=== PATIENT | female | born 1970 | race Caucasian/White ===

== ENCOUNTER 2022-07-13 17:11 | Emergency (ER) | payer OTHER, SELFPAY ==
[2022-07-13 17:16] VITALS: BP 150/97; PULSE 92; RESP 18; TEMP 36.8; O2SAT 97; BMI 38.7
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
[2022-07-13 17:33] LABS: Microscopic, Urine URINE MICROSCOPIC (MICROSCOPIC)
[2022-07-13 17:35] LABS: Appearance,Urine CLEAR (Clear); Bilirubin,Urine Negative (Negative); Blood, Urine Negative (Negative); Color,Urine YELLOW (Yellow); Glucose,Urine (UA) Negative (Negative); Ketones,Urine Negative (Negative); Leukocyte Esterase,Urine Negative (Negative); Nitrate,Urine Negative (Negative); Protein,Urine 1+ (Negative); Specific Gravity, Urine 1.015 (1.005-1.030); Urobilinogen,Urine 0.2 EU/dl (0.2)
[2022-07-13 17:37] LABS: Urine Pregnancy, HCG Qual. Negative (Negative)
[2022-07-13 18:36] VITALS: BP 132/82; PULSE 70; RESP 18; O2SAT 96
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
[2022-07-13 19:14] VITALS: BP 132/82; PULSE 70; RESP 18; TEMP 36.8; O2SAT 96
== END 2022-07-13 19:16 | disposition home or self-care (01) ==
PROVIDERS: Emergency Provider Emergency Medicine
DX: S39.012A Strain of muscle, fascia and tendon of lower back, initial encounter (principal); V49.40XA Driver injured in collision with unspecified motor vehicles in traffic accident, initial encounter
CPT/HCPCS: 72128; 72131; 81001; 81025; 99285

== ENCOUNTER 2025-01-03 10:05 | Outpatient (CLI) | payer MEDICAID, SELFPAY ==
--- OUTSIDE RECORDS SUMMARY | 2024-04-20 10:56 | XMS_ITS | Continuity of Care Document ---
Author Organization [facility] Address [address] [facility] [address] [place] [address] Phone Care Team Providers Care Computer Numerical Control Grinder Name Role Phone Sana Esquivel MD Unavailable Unavailable Allergies, Adverse Reactions, Alerts Substance Reaction Status Criticality HYDROCODONE BITARTRATE Unknown(severe) Active No Information acetaminophen Unknown(severe) Active No Informat ion Medications Medication Instructions Dosage Effective Dates (start - stop) Status Comments METFORMIN HYDROCHLORIDE 1000MG TABLET TAKE ONE (1) TABLET TWICE DAILY WITH MORNING & EVENING MEALS - Active ATORVASTATIN CALCIUM 20MG TABLET TAKE 1 TABLET ONCE DAILY - Active OMEPRAZOLE 20MG CAPSULE DR TAKE 1 CAPSULE ONCE DAILY - Active LEVOCETIRIZINE DIHYDROCHLORIDE 5MG TABLET TAKE 1 TABLET ONCE DAILY IN THE EVENING - Active DOCUSATE SODIUM 100MG CAPSULE TAKE 1 CAPSULE TWICE DAILY - Active BACLOFEN 10MG TABLET TAKE ONE (1) TABLET EVERY 8 HOURS - Active jxeoerpt-fbiztdikj-j ydrocort 3.5 mg-10,000 unit/mL-1 % ear drops,susp instill 4 drop by otic route 3 times every day into affected ear(s) 4.00 drop - Active ClearLax 17 gram/dose oral powder DISSOLVE ONE CAPFULL (17 GRAMS) INTO LIQUID AND DRINK TWICE A DAY - Active Flonase Allergy Relief 50 mcg/actuation nasal spray,suspension inhale 2 spray by intranasal route every day in each nostril 100 MCG - Active MELOXICAM 15MG TABLET TAKE 1 TABLET ONCE DAILY - Active Ciprodex 0.3 %-0.1 % ear drops,suspension INSTILL FOUR (4) DROP BY OTIC ROUTE TWO (2) TIMES EVERY DAY FOR 7 DAYS INTO AFFECTED EAR(S) - Active desonide 0.05 % topical ointment apply by topical route 2 times every day sparingly and rub gently into the affected area(s) 0.00 - Active gabapentin 800 mg tablet TAKE 1 TABLET THREE TIMES DAILY - Active prednisone 20 mg tablet take 1 tablet by oral route every 5 days 20 MG - Active promethazine-DM 6.25 mg-15 mg/5 mL oral syrup take 5 milliliter by oral route every 4 - 6 hours as needed, not to exceed 30 mL in 24 hours 5.00 milliliter - Active valacyclovir 500 mg tablet take 1 tablet by oral route 2 times every day till gone - Active hydrocortisone 2.5 % topical cream apply by topical route 3 times every day a thin layer to the affected area(s) Not Available - Active METFORMIN HYDROCHLORIDE 500MG TABLET TAKE ONE (1) TABLET BY MOUTH TWICE DAILY WITH BREAKFAST AND EVENING MEAL - Active omeprazole 20 mg tablet,delayed release take 1 by oral route every day 1 - Active amoxicillin 500 mg capsule take 1 capsule by oral route every 8 hours 500 MG - Active prednisone 20 mg tablet take 2 tablet by oral route every day 40 MG - Active Pepcid 20 mg tablet take 1 tablet by oral route 2 times daily - Active mupirocin 2 % topical ointment apply by topical route 3 times every day a small amount to the affected area 0.00 - Active Metamucil Sugar-Free (aspartame) 3.4 gram/5.8 gram oral powder Take as directed on daily - Active dispense qs FERROUS SULFATE 325 MG (65 MG IRON) TABLET take 1 tablet by oral route every day - Active Alcohol Pads Monitor fingerstick blood sugars once a day. - Active may substitute per insurance. E 11.9 Blood Glucose Test strips test by Subcutaneous route every day Not Available - Active may substitute per insurance. E 11.9 lancets Fingerstick blood sugars once a day - Active may substitute per insurance. E 11.9 blood-glucose meter kit Check BS once daily. - Active Per insurance coverage E 11.9 Percocet 7.5 mg-325 mg tablet take 1 tablet by oral route every 8 hours as needed 1 tablet - Procedures Procedure Date METABOLIC PANEL Offsite Lab GLYCOHEMOGLOBIN(A1C) Offsite Lab 2022 TSH Offsite Lab LIPID PANEL Offsite Lab URINE MICROALBUMIN OFFICE VISIT/EST LEVEL IV HG A1C LEVEL < 7.0% DIL RETINA WITHOUT RETINOPATHY LDL-C <100 MG/DL DIAST BP 80-89 MM HG SYST BP >=130-139MM HG RVW MEDS BY RX/DR IN [facility] MED LIST DOCD IN [facility] Screen Tobacco; User No Counseling PHQ2 Negative COLORECTAL CA SCREEN DOC REV OFFICE VISIT/EST LEVEL III HG A1C LEVEL < 7.0% DIL RETINA WITHOUT RETINOPATHY LDL-C <100 MG/DL DIAST BP 80-89 MM HG SYST BP < 130 MM HG RVW MEDS BY RX/DR IN [facility] MED LIST DOCD IN [facility] Screen Tobacco; User No Counseling PHQ2 Negative COLORECTAL CA SCREEN DOC REV AMNT PAIN NOTED PAIN PRSNT [facility] Offsite Lab [facility] Offsite Lab NEBULIZER TREATMENT (EA) Albuterol non-comp unit 1 Mg OFFICE VISIT/EST LEVEL III HG A1C LEVEL < 7.0% LDL-C <100 MG/DL POS MICROALBUMINURIA REV DIAST BP 80-89 MM HG SYST BP >=130-139MM HG RVW MEDS BY RX/DR IN [facility] MED LIST DOCD IN [facility] Screen Tobacco; User No Counseling PHQ2 Negative COLORECTAL CA SCREEN DOC REV SARSCOV & INF VIR A&B AG IA Onsite OFFICE VISIT/EST LEVEL III HG A1C LEVEL < 7.0% LDL-C <100 MG/DL POS MICROALBUMINURIA REV DIAST BP> = 90 MM HG SYST BP> = 140 MM HG6 IT RVW MEDS BY RX/DR IN [facility] MED LIST DOCD IN [facility] Screen Tobacco; User No Counseling PHQ2 Negative OFFICE VISIT/EST LEVEL III HG A1C LEVEL < 7.0% LDL-C <100 MG/DL POS MICROALBUMINURIA REV DIAST BP 80-89 MM HG SYST BP> = 140 MM HG6 IT RVW MEDS BY RX/DR IN [facility] MED LIST DOCD IN [facility] TOBACCO NON-USER CBC W/DIFF. Offsite Lab METABOLIC PANEL Offsite Lab GLYCOHEMOGLOBIN(A1C) Offsite Lab LIPID PANEL Offsite Lab VITAMIN B-12 CHEMISTRY FOLIC ACID (FOLATE) SERUM TSH Offsite Lab Vitamin D 3 25 Hydroxy Level Offsite Lab GLYCOHEMOGLOBIN(A1C) Offsite Lab 2022 OFFICE VISIT/EST LEVEL III OFFICE VISIT/EST LEVEL III CBC W/DIFF. Offsite Lab METABOLIC PANEL Offsite Lab GROUP B STREPT/WOUND/OTHER CULTURE OFFICE VISIT/EST LEVEL III HG A1C LEVEL < 7.0% Foot Exam LDL-C <100 MG/DL POS MICROALBUMINURIA REV Medication Reviewed Screened Tobacco; User With Counseling O PHQ2 Negative OFFICE VISIT/EST LEVEL III HG A1C LEVEL < 7.0% Foot Exam LDL-C <100 MG/DL POS MICROALBUMINURIA REV Screened Tobacco; User With Counseling S PHQ2 Negative URINE DIP Onsite NON AUTO W/0 MICRO CBC W/DIFF. METABOLIC PANEL GLYCOHEMOGLOBIN(A1C) LIPID PANEL URINE MICROALBUMIN OFFICE VISIT/EST LEVEL III HG A1C LEVEL < 7.0% Foot Exam Medication Reviewed Screened Tobacco; User With Counseling J PHQ2 Negative CBC W/DIFF. METABOLIC PANEL Iron Binding Capacity OFFICE VISIT/EST LEVEL IV TRANS CARE MGMT 7 DAY DISCH HG A1C LEVEL < 7.0% POS MICROALBUMINURIA REV DSCHRG MED/CURRENT MED MERGE Screened Tobacco; User With Counseling M OFFICE CONSULT/Level IV CBC W/DIFF. METABOLIC PANEL GLYCOHEMOGLOBIN(A1C) OFFICE VISIT/EST LEVEL III Screened Tobacco; User With Counseling D PHQ2 Negative OFFICE VISIT/EST LEVEL III LDL-C <100 MG/DL Medication Reviewed Screened Tobacco; User With Counseling N PHQ2 Negative OFFICE VISIT/EST LEVEL III HG A1C LEVEL < 7.0% LDL-C <100 MG/DL POS MICROALBUMINURIA REV Medication Reviewed Screened Tobacco; User With Counseling O PHQ2 Negative IMMUNIZATION ADM/SNGL Flu Quad; INJ;Pres Free; 3+ Yrs (C) EXMP T OFFICE VISIT/EST LEVEL III LDL-C <100 MG/DL Medication Reviewed Screened Tobacco; User With Counseling A PHQ2 Negative CBC W/DIFF. METABOLIC PANEL GLYCOHEMOGLOBIN(A1C) Iron Binding Capacity TSH T-4 FREE VITAMIN B-12 CHEMISTRY FOLIC ACID (FOLATE) SERUM Vitamin D 3 25 Hydroxy Level OFFICE VISIT/EST LEVEL III LDL-C <100 MG/DL Medication Reviewed Screened Tobacco; User With Counseling J PHQ2 Negative CBC W/DIFF. METABOLIC PANEL GLYCOHEMOGLOBIN(A1C) LIPID PANEL URINE MICROALBUMIN OFFICE VISIT/EST LEVEL III HG A1C LEVEL < 7.0% LDL-C <100 MG/DL Medication Reviewed Screened Tobacco; User With Counseling A PHQ2 Negative [facility] OFFICE VISIT/EST LEVEL III LDL-C <100 MG/DL Medication Reviewed Screened Tobacco; User With Counseling M PHQ2 Negative Covid-19 [employer] OFFICE VISIT/EST LEVEL III LDL-C <100 MG/DL Medication Reviewed Screened Tobacco; User With Counseling J PHQ2 Negative Substance Abuse screening CBC W/DIFF. METABOLIC PANEL: CHEM 19 LIPID PANEL GLYCOHEMOGLOBIN(A1C) OFFICE VISIT/EST LEVEL III OFFICE VISIT/EST LEVEL I Covid-19 [employer] OFFICE VISIT/EST LEVEL III OFFICE VISIT/EST LEVEL III HG A1C LEVEL 7.0-9.0% Medication Reviewed Screened Tobacco; User With Counseling D PHQ2 Negative GLYCOHEMOGLOBIN(A1C) OFFICE VISIT/EST LEVEL III HG A1C LEVEL 7.0-9.0% Medication Reviewed Screened Tobacco; User With Counseling N PHQ2 Negative OFFICE VISIT/EST LEVEL III Medication Reviewed Screened Tobacco; User With Counseling O OFFICE VISIT/EST LEVEL III Medication Reviewed Screened Tobacco; User With Counseling A PHQ2 Negative OFFICE VISIT/EST LEVEL III Medication Reviewed Screened Tobacco; User With Counseling J PHQ2 Negative GLYCOHEMOGLOBIN(A1C) GLUCOSE, QUANTITATIVE, BLOOD CBC W/DIFF. METABOLIC PANEL: CHEM 19 Vitamin D 3 25 Hydroxy Level TSH LIPID PANEL PREV.VISIT/EST.40-64 YRS Medication Reviewed Screened Tobacco; User With Counseling M PHQ2 Pos W/ PHQ9 Completed OFFICE VISIT/EST LEVEL III Medication Reviewed Screened Tobacco; User With Counseling S OFFICE VISIT/EST LEVEL III Medication Reviewed Screened Tobacco; User With Counseling S PHQ2 Pos W/ PHQ9 Completed OFFICE VISIT/EST LEVEL IV LDL-C>= 130 MG/DL Medication Reviewed OFFICE VISIT/EST LEVEL III LDL-C>= 130 MG/DL Medication Reviewed Screened Tobacco; User With Counseling F PHQ2 Negative QUICK STREP OFFICE VISIT/EST LEVEL III LDL-C>= 130 MG/DL Medication Reviewed Screened Tobacco; User With Counseling N OFFICE VISIT/EST LEVEL III LDL-C>= 130 MG/DL Diastolic BP Less Than 90 Systolic BP Less Than 140 Medication Reviewed Screened Tobacco; User With Counseling O PHQ2 Pos W/ PHQ9 Completed METABOLIC PANEL: CHEM LIPID PANEL VITAMIN B-12 CHEMISTRY FOLIC ACID (FOLATE) SERUM Vitamin D 3 25 Hydroxy Level OFFICE VISIT/EST LEVEL III OFFICE VISIT/EST LEVEL III OFFICE VISIT/EST LEVEL II CBC W/DIFF. METABOLIC PANEL: CHEM 19 LIPID PANEL TSH OFFICE VISIT/EST LEVEL III OFFICE VISIT/EST LEVEL IV OFFICE VISIT/EST LEVEL IV OFFICE VISIT/EST LEVEL III OFFICE VISIT/EST LEVEL III IMMUNIZATION ADM/SNGL TDAP (7+ Yrs) (3) EXMPT (C) OFFICE VISIT/EST LEVEL III CBC (NO DIFF)&PLATELET CT METABOLIC PANEL: CHEM LIPID PANEL TSH T-4 FREE OFFICE VISIT/EST LEVEL III OFFICE VISIT/NEW LEVEL II Advance Directives Directive Yes / No Effective Date File Name No Information Encounters Encounter Description Practice Location Reason(s) For Visit Diagnoses Date Provider Providers Copied on Encounter [facility], [address], [id number], tel:[phone] [facility] No Information 4 Alvin Hood. [address] [place] [address], [id number] , [place]. tel:[phone] [facility], [address], [id number], tel:[phone] [facility] No Information 4 Alvin Hood. [address] [place] [address], [id number] , [place]. tel:[phone] [facility], 424 [facility] [address] [place] [address], [id number], tel:[phone] [facility] No Information 4 Alvin Hood. [address] [place] [address], [id number] , [place]. tel: [phone] [facility], 424 [facility] [address], [place], [place], [id number], [place] tel:[phone] [facility] No Information 4 Alvin Hood. [address] [place] [address], [id number] , [place]. tel: [phone] [facility], 424 [facility] [address], [place], [place], [id number], [place] tel:[phone] [facility] No Information 4 Uziel Chery. [address] [place] [address], [id number], [place]. tel: [phone] [facility], [address] [place] [address], [id number], tel:[phone] [facility] No Information 4 Uziel Chery. [address] [place] [address], [id number], [place]. tel: [phone] OFFICE VISIT/EST LEVEL IV [facility], [address] [place] [address], [place], [place], [id number], [place] tel:[phone] [facility] 3 month f/u (chief complaint) Dietary counseling and surveillanceEs sential hypertension, hypertension with unspecified goalHyperlipid emia, unspecified hyperlipidemia typeType 2 diabetes mellitus with other specified complicationMi ld eczemaBody mass index (BMI) 40.0-44.9, adult Dec- 3 Alvin Hood. [address] [place] [address], [id number] , [place]. tel: [phone] [facility], [address] [place] [address], [place], [place], [id number], [place] tel:[phone] [facility] No Information 3 Uziel Chery. [address] [place] [address], [id number], [place]. tel: [phone] OFFICE VISIT/EST LEVEL III [facility], [address], [id number], tel:[phone] [facility] diabetes (chief complaint) Dietary counseling and surveillanceSc reening mammogram for breast cancerType 2 diabetes mellitus with other specified complicationHy perlipidemia, unspecified hyperlipidemia typeEssential hypertension, hypertension with unspecified goalBody mass index (BMI) 38.0-38.9, adult Feb- 3 Alvin Hood. [address] [place] [address], [id number] , [place]. tel: [phone] [facility], [address], [id number], tel:[phone] [facility] medtox (chief complaint) Long-term current use of drug therapy for attention deficit hyperactivity disorder (ADHD) 3 Alvin Hood. [address] [place] [address], [id number] , [place]. tel: [phone] OFFICE VISIT/EST LEVEL III [facility], [address], [id number], tel:[phone] [facility] URI (chief complaint) Dietary counseling and surveillanceAc [place] bronchitis, unspecified organismMild intermittent reactive airway disease without complicationBo dy mass index (BMI) 38.0-38.9, adult 3 Alvin Hood. [address] [place] [address], [id number] , [place]. tel: [phone] OFFICE VISIT/EST LEVEL III [facility], [address], [id number], [place] tel:[phone] [facility] URI (chief complaint) Dietary counseling and surveillanceUR I, acuteBody mass index (BMI) 38.0-38.9, adult Dec- 3 Alvin Hood. [address] [place] [address], [id number] , [place]. tel: [phone] [facility], 424 [facility] [address], [place], [place], [id number], tel:[phone] [facility] No Information 3 Alvin Hood. [address] [place] [address], [id number] , . tel: [phone] [facility], 424 [facility] [address], [place], [place], [id number], tel:[phone] [facility] Colon cancer screening 3 Alvni Hood. [address] [place] [address], [id number] , . tel: [phone] OFFICE VISIT/EST LEVEL III [facility], [address] [place] [address], [place], [place], [id number], tel:[phone] [facility] 3mo f/u (chief complaint) Dietary counseling and surveillanceHy perlipidemia, unspecified hyperlipidemia typeType 2 diabetes mellitus with other specified complicationHi story of otitis externaBody mass index (BMI) 39.0-39.9, adult 3 Alvin Hood. [address] [place] [address], [id number] , . tel: [phone] [facility], [address], [id number], tel:[phone] [facility] No Information 3 Uziel Chery. [address] [place] [address], [facility], [place]. tel: [phone] [facility], [address], [id number], tel:[phone] [facility] No Information 3 Uziel Chery. [address] [place] [address], [facility], [place]. tel: [phone] OFFICE VISIT/EST LEVEL III [facility], [address] [facility] [address], [place], [id number], [place] tel:[phone] [facility] diabetes (chief complaint) Dietary counseling and surveillanceTy pe 2 diabetes mellitus with other specified complicationBo dy mass index (BMI) 40.0-44.9, adultLeft knee pain, unspecified chronicity 3 Alvin Hood. [address] [place] [address], [id number] , [place]. tel: [phone] OFFICE VISIT/EST LEVEL III [facility], [address] [facility] [address], [place], [place], [id number], [place] tel:[phone] [facility] ear pain (chief complaint) Dietary counseling and surveillanceAc [place] otitis externa of left ear, unspecified typeNon-recurr ent acute suppurative otitis media of left ear without spontaneous rupture of tympanic membraneNon-se asonal allergic rhinitis, unspecified triggerBody mass index (BMI) 40.0-44.9, adultDiabetes mellitus type 2 in obese 3 Alvin Hood. [address] [place] [address], [id number] , [place]. tel: [phone] [facility], [address], [id number], tel:[phone] [facility] No Information 2 Uziel Chery. [address] [place] [address], [id number], [place]. tel: [phone] OFFICE VISIT/EST LEVEL III [facility], [address], [id number], [place] tel:[phone] [facility] umbilical infection (chief complaint) Dietary counseling and surveillanceCe llulitis, unspecified cellulitis siteBody mass index (BMI) 40.0-44.9, adult 2 Uziel Chery. [address] [place] [address], [id number], [place]. tel: [phone] OFFICE VISIT/EST LEVEL III [facility], [address], [id number], tel:[phone] [facility] cyst (chief complaint) Dietary counseling and surveillanceRe nal cystNeck painBody mass index (BMI) 40.0-44.9, adult Sep-0 2 Uziel NINA Miri. [address] [place] [address], [facility], [place]. tel: [phone] OFFICE VISIT/EST LEVEL III [facility], [address], [id number], [place] tel:[phone] [facility] diabetes (chief complaint) Dietary counseling and surveillanceDi abetes mellitus type 2 in obeseAcute sinusitis, recurrence not specified, unspecified locationToenai l fungusBody mass index (BMI) 40.0-44.9, adult 2 Uziel NINA Miri. [address] [place] [address], [facility], [place]. tel: [phone] [facility], [address], [id number], tel:[phone] [facility] No Information 2 Uziel NINA Miri. [address] [place] [address], [facility], . tel: [phone] OFFICE VISIT/EST LEVEL IV [facility], [address], [id number], [place] tel:[phone] [facility] Back sx (chief complaint) Spinal stenosis, unspecified spinal regionBody mass index (BMI) 40.0-44.9, adult 2 Uziel NINA Miri. [address] [place] [address], [id number], [place]. tel: [phone] OFFICE CONSULT/Leve l IV [facility], [address], [id number], [place] tel:[phone] [facility] Pre Op (chief complaint) Dietary counseling and surveillancePr e-op examLumbar degenerative disc disease 2 Sam Perez. [address], [place], [address], [place]. tel:[phone] Referring Provider: Liudmila Noyola MD, [address] [facility], [place], [address] . tel:[phone] OFFICE VISIT/EST LEVEL III [facility], 424 [facility] [address], [place], [place], [id number], [place] tel:[phone] [facility] preop (chief complaint) Pre-op examDietary counseling and surveillanceBo dy mass index (BMI) 40.0-44.9, adult 1 Uziel Chery. [address] [place] [address], [id number], [place]. tel:[phone] OFFICE VISIT/EST LEVEL [facility], [address], [place], [place], [id number], [place] tel:[phone] [facility] URI (chief complaint) Dietary counseling and surveillanceCo ntact with and (suspected) exposure to other viral communicable diseasesURI, acuteBody mass index (BMI) 40.0-44.9, adult 1 Uziel Chery. [address] [place] [address], [id number], [place]. tel:[phone] OFFICE VISIT/EST LEVEL [facility], 424 [facility] [address], [place], [place], [id number], [place] tel:[phone] [facility] neuropathy (chief complaint) Dietary counseling and surveillanceNe uropathyDiabet es mellitus type 2 in obeseBody mass index (BMI) 40.0-44.9, adult 1 Uziel Chery. [address] [place] [address], [id number], [place]. tel:[phone] OFFICE VISIT/EST LEVEL III [facility], [address] [facility] [address], [place], [place], [id number], tel:[phone] [facility] Follow Up of Neuropathy (chief complaint) Dietary counseling and surveillanceNe uropathyLumbar degenerative disc diseaseBody mass index (BMI) 40.0-44.9, adult Jan- 1 Uziel Chery. [address] [place] [address], [facility], . tel: [phone] [facility], [address] [facility] [address], [place], [place], [id number], [phone] [facility] Atypical mole 1 Uziel Chery. [address] [place] [address], [facility], . tel: [phone] OFFICE VISIT/EST LEVEL III [facility], [address], [id number], tel:[phone] [facility] cough (chief complaint)c ongestion (chief complaint) Dietary counseling and surveillanceSi nusitis, unspecified chronicity, unspecified locationFatigu e, unspecified typeBody mass index (BMI) 40.0-44.9, adult 1 Uziel Samuelsissa. [address] [place] [address], [facility], . tel: [phone] OFFICE VISIT/EST LEVEL III [facility], [address] [facility] [address], [place], [id number], tel:[phone] [facility] neuropathy (chief complaint)d iabetes (chief complaint) Dietary counseling and surveillanceDi abetes mellitus type 2 in obeseNeuropath yBody mass index (BMI) 40.0-44.9, adult Sep- 1 Uziel Samuelsissa. [address] [place] [address], [facility], . tel: [phone] [facility], [address] [facility] [address], [place], [id number], tel:[phone] [facility] Back pain, unspecified back location, unspecified back pain laterality, unspecified chronicity Aug-3 0 1 Uziel NINA Miri. [address] [place] [address], [facility], . tel:[phone] [facility], [address], [id number], tel:[phone] [facility] Atypical mole Aug-2 1 Uziel NINA Miri. [address] [place] [address], [facility], . tel:[phone] [facility], [address] [place] [address], [id number], tel:[phone] [facility] Atypical mole Aug- 1 Uziel NINA Miri. [address] [place] [address], [facility], . tel:[phone] OFFICE VISIT/EST LEVEL III [facility], [address] [place] [address], [id number], tel:[phone] [facility] mole on right side of face (chief complaint)R estless movement (chief complaint) NeuropathyAcut e sinusitis, recurrence not specified, unspecified locationAtypic al moleBody mass index (BMI) 39.0-39.9, adult Aug- 1 Uziel NINA Miri. [address] [place] [address], [facility], . tel:[phone] OFFICE VISIT/EST LEVEL III [facility], [address] [place] [address], [id number], tel:[phone] [facility] sinus issues (chief complaint) Dietary counseling and surveillanceCo ntact with and (suspected) exposure to other viral communicable diseasesUpper respiratory tract infection, unspecified typeBody mass index (BMI) 39.0-39.9, adultNicotine abuse 1 Jigna Taylor. [address] [place], [address], [place]. tel:[phone] [facility], [address] [facility] [address], [place], [place], [id number], [place] tel:[phone] [facility] No Information 0 Uziel NINA Miri. [address] [place], [place], [facility], [place]. tel:[phone] OFFICE VISIT/EST LEVEL III [facility], [address], [place], [place], [id number], [place] tel:[phone] [facility] COVID-19 Telehealth (chief complaint)d iabetes (chief complaint) Diabetes mellitus type 2 in obese 0 Uziel NINA Miri. [address] [place] [address], [id number], [place]. tel:[phone] OFFICE VISIT/EST LEVEL I [facility], [address] [facility], [place], [place], [id number], [place] tel:[phone] [facility] COVID TESTING (chief complaint) Close exposure to COVID-19 virus 0 Gurpreet Marcelino. [address] [place] [address], [id number] , [place]. tel:[phone] [facility], [address], [place], [id number], [place] tel:[phone] [facility] No Information 0 Uziel NINA Miri. [address] [place] [address], [id number], [place]. tel:[phone] OFFICE VISIT/EST LEVEL III [facility], [address], [place], [place], [id number], [place] tel:[phone] [facility] COVID-19 Telehealth (chief complaint)C OVID Exposure (chief complaint) Close exposure to COVID-19 virus 0 Uziel NINA Miri. [address] [place], [place], [facility], . tel: [phone] OFFICE VISIT/EST LEVEL III [facility], [address], [address] [place] [address], tel:[phone] [facility] pre op (chief complaint) Dietary counseling and surveillancePr e-op evaluationDiab etes mellitus type 2 in obeseChronic low back pain with right-sided sciatica, unspecified back pain lateralityBody mass index (BMI) 40.0-44.9, adult May-- 9 [facility] MAICO Brittani. [address] [place] [address], [facility], . tel: [phone] OFFICE VISIT/EST LEVEL [facility], [address], [address] [place] [address], tel:[phone] [facility] rash (chief complaint)d iabetes (chief complaint) Dietary counseling and surveillanceDi abetes mellitus type 2 in obeseObesity, unspecifiedPit yriasis roseaBody mass index (BMI) 45.0-49.9, adult 9 [facility] MAICO Peter. [address] [place] [address], [facility], . tel: [phone] OFFICE VISIT/EST LEVEL III [facility], [address], [id number], tel:[phone] [facility] Breast lump (chief complaint) Abscess of breastBreast cancer screeningBody mass index (BMI) 45.0-49.9, adult 9 [facility] MAICO Brittani. [address] [place] [address], [facility], [place]. tel: [phone] OFFICE VISIT/EST LEVEL III [facility], [address], [id number], tel:[phone] [facility] headache (chief complaint) Dietary counseling and surveillanceSi nusitis, unspecified chronicity, unspecified locationBody mass index (BMI) 45.0-49.9, adult 9 Nicky Peter. [address] [place], [address], [place]. tel: [phone] OFFICE VISIT/EST LEVEL III [facility], [address] [facility] [address], [place], [place], [id number], [place] tel:[phone] [facility] Eye problems (chief complaint) Dietary counseling and surveillanceCh alazion of right upper eyelidBody mass index (BMI) 45.0-49.9, adult 9 Nicky Peter. [address] [place], [facility], [place]. tel: [phone] [facility], [address], [id number], [place] tel:[phone] [facility] No Information 9 Nicky Peter. [address] [place], [address], [place]. tel: [phone] [facility], [address] [facility] [address], [place], [place], [id number], [place] tel:[phone] [facility] Blood glucose elevated 9 Nicky Peter. [address] [place], [place], [facility], [place]. tel: [phone] PREV.VISIT/E ST.40-64 YRS [facility], [address] [facility] [address], [place], [place], [id number], [place] tel:[phone] [facility] check for DM (chief complaint)p reventive exam (chief complaint) Dietary counseling and surveillanceEn cntr for general adult medical exam w/o abnormal findingsFatigu e, unspecified typeDepression , unspecified depression typeClass 3 severe obesity with body mass index (BMI) of 45.0 to 49.9 in adult, unspecified obesity type, unspecified whether serious comorbidity presentBody mass index (BMI) 45.0-49.9, adult May-2 0-201 9 Nicky NINA Brittani. [address] [place] [address], [address], [place]. tel: [phone] OFFICE VISIT/EST LEVEL III [facility], [address], [id number], [place] tel:[phone] [facility] Cough (chief complaint) Dietary counseling and surveillanceAc [place] bronchitis, unspecified organismBody mass index (BMI) 45.0-49.9, adult Sep-1 3-201 8 George PAC Natasha. [address] [place] [address], [id number] , [place]. tel: [phone] OFFICE VISIT/EST LEVEL III [facility], [address], [id number], [place] tel:[phone] [facility] URI (chief complaint) Dietary counseling and surveillanceAc [place] sinusitis, recurrence not specified, unspecified locationBody mass index (BMI) 45.0-49.9, adult Sep-0 7-201 8 George PAC Natasha. [address] [place] [address], [id number] , [place]. tel: [phone] OFFICE VISIT/EST LEVEL IV [facility], [address], [id number], [place] tel:[phone] [facility] Practice Est Care (chief complaint) Chronic low back pain with right-sided sciatica, unspecified back pain lateralityMajo r depression, recurrent, chronicLeg swellingMorbid obesityBody mass index (BMI) 45.0-49.9, adultScreening for malignant neoplasm of breastScreenin g for diabetes mellitusScreen ing, lipid 8 Vin Negron. [address] [place] [address], [id number] , [place]. tel: [phone] OFFICE VISIT/EST LEVEL III [facility], [address], [id number], [place] tel:[phone] [facility] URI (chief complaint) Acute bronchitis, unspecified organismBody mass index (BMI) 45.0-49.9, adult 8 Prieto DO Calderón. [address] [place] [address], [id number] , [place]. tel: [phone] OFFICE VISIT/EST LEVEL III [facility], [address], [id number], tel:[phone] [facility] Blisters (chief complaint) StomatitisAcut e pharyngitis, unspecified etiologyAcute upper respiratory infectionBody mass index (BMI) 40.0-44.9, adult 7 George PAC Natasha. [address] [place] [address], [id number] , [place]. tel: [phone] OFFICE VISIT/EST [facility], [address], [id number], [place] tel:[phone] [facility] depression (chief complaint)h ypertension (chief complaint)h yperlipidem ia (chief complaint) Depression, unspecified depression typeEssential hypertension, hypertension with unspecified goalHyperlipid emia, unspecified hyperlipidemia typeBody mass index (BMI) 40.0-44.9, adult 7 George PAC Natasha. [address] [place] [address], [id number] , [place]. tel: [phone] OFFICE VISIT/EST LEVEL III [facility], [address], [id number], tel:[phone] [facility] Follow up (chief complaint) Depression, unspecified depression typeEssential hypertension, hypertension with unspecified goalHyperlipid emia, unspecified hyperlipidemia typeVitamin D deficiencyFati trice, unspecified typeCold sore 7 George PAC Natasha. [address] [place] [address], [id number] , [place]. tel: [phone] OFFICE VISIT/EST LEVEL III [facility], [address] [facility] [address], [place], [id number], tel:[phone] [facility] Follow up (chief complaint)F jennifer shot (chief complaint) Depression, unspecified depression typeNipple tenderness 7 George PAC Natasha. [address] [place], [place], [id number] , . tel: [phone] OFFICE VISIT/EST LEVEL II [facility], [address], [id number], [phone] [facility] Paperwork (chief complaint)F jennifer shot (chief complaint) Depression, unspecified depression typeChronic low back pain with right-sided sciatica, unspecified back pain lateralityLumb ar degenerative disc disease 7 George PAC Natasha. [address] [place] [address], [id number] , . tel: [phone] OFFICE VISIT/EST LEVEL III [facility], [address], [id number], [phone] [facility] depression (chief complaint)H eartburn (chief complaint)h ypertension (chief complaint) Essential hypertension, hypertension with unspecified goalHeartburnD epression, unspecified depression typeObesity (BMI 30-39.9) 7 George PAC Natasha. [address] [place], [place], [id number] , [place]. tel: [phone] OFFICE VISIT/EST LEVEL IV [facility], [address], [id number], tel:[phone] [facility] cough (chief complaint) Acute bronchitis, unspecified organism 7 George PAC Natasha. [address] [place], [place], [id number] , . tel: [phone] OFFICE VISIT/EST LEVEL IV [facility], [address] [facility] [address], [place], [id number], [place] tel:[phone] [facility] Follow up (chief complaint) Depression, unspecified depression typeURI, acuteHeartburn 6 George PAC Natasha. [address] [place] [address], [id number] , [place]. tel: [phone] OFFICE VISIT/EST LEVEL III [facility], [address], [id number], [place] [phone] [facility] Pt here for follow up (chief complaint) Depression, unspecified depression type George PAC Natasha. [address] [place] [address], [id number] , [place]. tel: [phone] OFFICE VISIT/EST LEVEL III [facility], [address], [id number], [place] tel:[phone] [facility] Follow up (chief complaint)T etanus (chief complaint) Depression, unspecified depression typeEssential hypertension, hypertension with unspecified goalNeed for Tdap vaccination George PAC Natasha. [address] [place] [address], [id number] , [place]. tel: [phone] OFFICE VISIT/EST LEVEL III [facility], [address], [id number], [place] [phone] [facility] follow up (chief complaint) Depression, unspecified depression typeEssential hypertension, hypertension with unspecified goal 6 George PAC Natasha. [address] [place] [address], [id number] , [place]. tel: [phone] OFFICE VISIT/EST LEVEL III [facility], [address], [id number], [phone] [facility] back pain (chief complaint)b loodwork (chief complaint) Chronic low back pain with right-sided sciatica, unspecified back pain lateralityEsse ntial hypertension, hypertension with unspecified goalObesity (BMI 30-39.9)Fatigu e, unspecified typeDepression , unspecified depression type Sep- 6 George PAC Natasha. [address] [place], [place], [id number] , [place]. tel: [phone] OFFICE VISIT/NEW LEVEL II [facility], [address] [facility] [address], [place], [place], [id number], [place] tel:[phone] [facility] care (chief complaint) Essential hypertension, hypertension with unspecified goalChronic low back pain with right-sided sciatica, unspecified back pain lateralityLumb ar degenerative disc diseaseLeft tennis elbowDepressio n, unspecified depression typeIngrown nail of great toe of left foot Aug-0 6 George PAC Natasha. [address], [place], [id number] , [place]. tel: [phone] Family History Family Member Type Diagnosis Age At Onset Father Problem (finding) hypertension Brother Problem (finding) malignant neoplasm of p harynx Problem (finding) Family history of Diabe sean mellitus Maternal aunt Problem (finding) breast cancer Mother Problem (finding) Lymphoma Immunizations Vaccine Date Status Comments 6mos +Influenza administered Source: New Immunization Record Tdap (Adacel) administered Source: New Im munization Record Payers Payer name Insurance type Covered constitution party ID Authoriza tion(s) [employer] Medicaid CI [id number] [facility] [id number] [employer] Medicaid CI [id number] [facility] [id number] [employer] Medicaid CI [id number] [facility] [id number] Social History Type Description Quantity Date Captured Comments Alcohol Use Details Unknown Caffeine Use Details Unknown Tobacco Use Status No Information Smoking Status No Information Sex Female Sexual Orientation Straight or heterosexual Feb Gender Identity Female Chief Complaint And Reason For Visit No Information Reason For Referral Reason For Referral No Information Plan Of Treatment Date Type Action Status Goal Pap/HPV testing. Due on due Goal Influenza vaccine. Due on Oc due Goal Lipid panel. Due on due Goal Mammogram. Due on due Goal Creatinine. Due on due Goal HIV Screen. Due on due Goal Zoster vaccine ( 1st). Due on due Goal Vitamin B12. Due on due Goal H&P. Due on due Goal Foot exam. Due on due Goal Annual Wellness Exam. Due on due Goal Low dose CT. Due on due Goal Hemoglobin A1C. Due on due Goal DNA Cologuard. Due on due Goal Dilated Retina Exam. Due on due Goal Pain Screening. Due on due Goal Potassium. Due on due Goal Fundus photograp hy of eye. Due on due Goal Urine microalbumin. Due on due Goal HCV. Due on due Goal Fit test. Due on due Goal Zoster vaccine ( 2nd). Due on due Goal Colonoscopy. Due on 033 due Goal Tdap. Due on due Goal Annual Wellness Exam. Due on due Goal Fit test. Due on due Goal Colonoscopy. Due on due Goal HCV. Due on due Goal Influenza vaccine. Due on due Goal H&P. Due on due Goal Low dose CT. Due on due Goal Lipid panel. Due on due Goal Urine microalbumin. Due on due Goal Pain Screening. Due on due Goal DNA Cologuard. Due on due Goal Zoster vaccine ( ). Due on due Goal Potassium. Due on due Goal Dilated Retina Exam. Due on due Goal Zoster vaccine ( ). Due on due Goal Pap/HPV testing. Due on due Goal HIV Screen. Due on due Goal Vitamin B12. Due on due Goal Mammogram. Due on due Goal Foot exam. Due on due Goal Creatinine. Due on due Goal Hemoglobin A1C. Due on due Goal Fundus photograp hy of eye. Due on due Goal Tdap. Due on due Goal Pain Screening. Due on due Goal Lipid panel. Due on 024 due Goal HIV Screen. Due on 23 due Goal Pap/HPV testing. Due on due Goal Colonoscopy. Due on 033 due Goal Mammogram. Due on 5 due Goal HCV. Due on due Goal DNA Cologuard. Due on due Goal H&P. Due on due Goal Influenza vaccine. Due on due Goal Low dose CT. Due on 023 due Goal Fit test. Due on due Goal Tdap. Due on due Goal Zoster vaccine ( 2nd). Due on due Goal Zoster vaccine ( 1st). Due on due Goal Fundus photograp hy of eye. Due on due Goal Creatinine. Due on 24 due Goal Potassium. Due on 4 due Goal Dilated Retina Exam. Due on due Goal Foot exam. Due on 3 due Goal Vitamin B12. Due on due Goal Hemoglobin A1C. Due on due Goal Lifestyle education regardin g diet completed Goal Lipid panel. Due on due Goal Pain Screening. Due on due Goal HCV. Due on due Goal H&P. Due on due Goal DNA Cologuard. Due on due Goal Influenza vaccine. Due on due Goal Zoster vaccine ( 1st). Due on due Goal Pap/HPV testing. Due on due Goal Foot exam. Due on 3 due Goal Hemoglobin A1C. Due on due Goal Fundus photograp hy of eye. Due on due Goal Mammogram. Due on 5 due Goal Potassium. Due on 4 due Goal Dilated Retina Exam. Due on due Goal Urine microalbumin. Due on due Goal Vitamin B12. Due on 024 due Goal HIV Screen. Due on 23 due Goal Colonoscopy. Due on 033 due Goal Creatinine. Due on 24 due Goal Zoster vaccine ( 2nd). Due on due Goal Low dose CT. Due on 023 due Goal Fit test. Due on due Goal Tdap. Due on due Goal Pap/HPV testing. Due on due Goal Tdap. Due on due Goal HCV. Due on due Goal Foot exam. Due on 3 due Goal Urine microalbumin. Due on due Goal H&P. Due on due Goal Zoster vaccine ( 1st). Due on due Goal Potassium. Due on due Goal Low dose CT. Due on due Goal DNA Cologuard. Due on due Goal Fit test. Due on due Goal Colonoscopy. Due on 033 due Goal Zoster vaccine ( 2nd). Due on due Goal Influenza vaccine. Due on due Goal HIV Screen. Due on due Goal Lipid panel. Due on due Goal Vitamin B12. Due on due Goal Dilated Retina Exam. Due on due Goal Fundus photograp hy of eye. Due on due Goal Creatinine. Due on due Goal Hemoglobin A1C. Due on due Goal Lifestyle education regardin g diet completed Goal Tdap. Due on due Goal Lipid panel. Due on due Goal HCV. Due on due Goal Influenza vaccine. Due on due Goal Zoster vaccine ( 2nd). Due on due Goal Low dose CT. Due on due Goal Zoster vaccine ( 1st). Due on due Goal HIV Screen. Due on due Goal Vitamin B12. Due on due Goal Fit test. Due on due Goal H&P. Due on due Goal Fundus photograp hy of eye. Due on due Goal Mammogram. Due on due Goal Hemoglobin A1C. Due on due Goal Foot exam. Due on due Goal Colonoscopy. Due on 033 due Goal Pap/HPV testing. Due on due Goal Dilated Retina Exam. Due on due Goal Creatinine. Due on due Goal DNA Cologuard. Due on due Goal Urine microalbumin. Due on due Goal Potassium. Due on due Goal Tdap. Due on due Goal Pap/HPV testing. Due on due Goal Potassium. Due on due Goal Hemoglobin A1C. Due on due Goal Dilated Retina Exam. Due on due Goal Creatinine. Due on due Goal Low dose CT. Due on 023 due Goal Mammogram. Due on due Goal HCV. Due on due Goal Fit test. Due on due Goal H&P. Due on due Goal Zoster vaccine ( 2nd). Due on due Goal Colonoscopy. Due on 033 due Goal HIV Screen. Due on due Goal Vitamin B12. Due on due Goal DNA Cologuard. Due on due Goal Influenza vaccine. Due on due Goal Lipid panel. Due on due Goal Fundus photograp hy of eye. Due on due Goal Urine microalbumin. Due on due Goal Zoster vaccine ( 1st). Due on due Goal Foot exam. Due on due Goal Lifestyle education regardin g diet completed Goal Hemoglobin A1C. Due on due Goal Fit test. Due on due Goal Pap/HPV testing. Due on due Goal H&P. Due on due Goal HIV Screen. Due on due Goal Foot exam. Due on due Goal Low dose CT. Due on due Goal Tdap. Due on due Goal Influenza vaccine. Due on due Goal Colonoscopy. Due on due Goal Lipid panel. Due on due Goal HCV. Due on due Goal DNA Cologuard. Due on due Goal Mammogram. Due on due Goal Zoster vaccine ( 2nd). Due on due Goal Zoster vaccine ( 1st). Due on due Goal Potassium. Due on due Goal Creatinine. Due on due Goal Dilated Retina Exam. Due on due Goal Fundus photograp hy of eye. Due on due Goal Urine microalbumin. Due on due Goal Vitamin B12. Due on due Goal Lifestyle education regardin g diet completed Goal Hemoglobin A1C. Due on due Goal Dilated Retina Exam. Due on due Goal Creatinine. Due on due Goal Fundus photograp hy of eye. Due on due Goal Potassium. Due on due Goal Urine microalbumin. Due on due Goal Foot exam. Due on 3 due Goal Tdap. Due on due Goal Vitamin B12. Due on due Goal Colonoscopy. Due on due Goal HCV. Due on due Goal Low dose CT. Due on due Goal Pap/HPV testing. Due on due Goal HIV Screen. Due on due Goal Influenza vaccine. Due on due Goal Zoster vaccine ( 1st). Due on due Goal H&P. Due on due Goal Zoster vaccine ( 2nd). Due on due Goal Lipid panel. Due on due Goal Pap/HPV testing. Due on due Goal HIV Screen. Due on due Goal Foot exam. Due on 3 due Goal Potassium. Due on due Goal Influenza vaccine. Due on due Goal H&P. Due on due Goal Zoster vaccine ( 2nd). Due on due Goal HCV. Due on due Goal Creatinine. Due on due Goal Colonoscopy. Due on due Goal Urine microalbumin. Due on due Goal Zoster vaccine ( 1st). Due on due Goal Low dose CT. Due on due Goal Fundus photograp hy of eye. Due on due Goal Hemoglobin A1C. Due on due Goal Lipid panel. Due on due Goal Dilated Retina Exam. Due on due Goal Tdap. Due on due Goal Vitamin B12. Due on due Goal Colonoscopy. Due on due Goal HIV Screen. Due on due Goal Tdap. Due on due Goal Zoster vaccine ( 1st). Due on due Goal Zoster vaccine ( 2nd). Due on due Goal Lipid panel. Due on due Goal Low dose CT. Due on 023 due Goal Potassium. Due on due Goal Foot exam. Due on due Goal Urine microalbumin. Due on due Goal Dilated Retina Exam. Due on due Goal Fundus photograp hy of eye. Due on due Goal HCV. Due on due Goal H&P. Due on due Goal Influenza vaccine. Due on due Goal Creatinine. Due on due Goal Pap/HPV testing. Due on due Goal Vitamin B12. Due on due Goal Hemoglobin A1C. Due on due Goal Lifestyle education regardin g diet completed Goal Lifestyle education regardin g diet completed Goal Zoster vaccine ( 2nd). Due on due Goal Pap/HPV testing. Due on due Goal Influenza vaccine. Due on due Goal Tdap. Due on due Goal Zoster vaccine ( 1st). Due on due Goal Fundus photograp hy of eye. Due on due Goal HCV. Due on due Goal Dilated Retina Exam. Due on due Goal Low dose CT. Due on due Goal HIV Screen. Due on due Goal Creatinine. Due on due Goal Urine microalbumin. Due on due Goal Potassium. Due on due Goal Foot exam. Due on due Goal Hemoglobin A1C. Due on due Goal H&P. Due on due Goal Vitamin B12. Due on due Goal Colonoscopy. Due on due Goal Lipid panel. Due on due Goal Zoster vaccine ( 1st). Due on due Goal Fundus photograp hy of eye. Due on due Goal Pap/HPV testing. Due on due Goal H&P. Due on due Goal Zoster vaccine ( 2nd). Due on due Goal Foot exam. Due on due Goal Lipid panel. Due on due Goal Dilated Retina Exam. Due on due Goal Colonoscopy. Due on due Goal Hemoglobin A1C. Due on due Goal Tdap. Due on due Goal Urine microalbumin. Due on due Goal Potassium. Due on due Goal HIV Screen. Due on due Goal Creatinine. Due on due Goal HCV. Due on due Goal Vitamin B12. Due on due Goal Low dose CT. Due on due Goal Influenza vaccine. Due on due Goal Lifestyle education regardin g diet completed Goal Hemoglobin A1C. Due on due Goal Fit test. Due on due Goal Dilated Retina Exam. Due on due Goal Fundus photograp hy of eye. Due on due Goal Colonoscopy. Due on due Goal HCV. Due on due Goal DNA Cologuard. Due on due Goal Tdap. Due on due Goal Urine microalbumin. Due on due Goal Zoster vaccine ( 1st). Due on due Goal Lipid panel. Due on due Goal Influenza vaccine. Due on due Goal Zoster vaccine ( 2nd). Due on due Goal Creatinine. Due on due Goal Pap/HPV testing. Due on due Goal Foot exam. Due on due Goal Vitamin B12. Due on due Goal H&P. Due on due Goal HIV Screen. Due on due Goal Low dose CT. Due on due Goal Potassium. Due on 3 due Goal Lifestyle education regardin g diet completed Goal Zoster vaccine ( 1st). Due on due Goal Tdap. Due on due Goal Lipid panel. Due on due Goal HIV Screen. Due on due Goal Low dose CT. Due on due Goal Vitamin B12. Due on due Goal Fit test. Due on due Goal H&P. Due on due Goal Zoster vaccine ( 2nd). Due on due Goal Influenza vaccine. Due on due Goal Hemoglobin A1C. Due on due Goal Potassium. Due on due Goal HCV. Due on due Goal Pap/HPV testing. Due on due Goal Fundus photograp hy of eye. Due on due Goal Foot exam. Due on due Goal DNA Cologuard. Due on due Goal Dilated Retina Exam. Due on due Goal Creatinine. Due on due Goal Urine microalbumin. Due on due Goal Colonoscopy. Due on due Goal Zoster vaccine ( 2nd). Due on due Goal Low dose CT. Due on due Goal Colonoscopy. Due on due Goal Tdap. Due on due Goal Influenza vaccine. Due on due Goal H&P. Due on due Goal HCV. Due on due Goal Zoster vaccine ( ). Due on due Goal Pap/HPV testing. Due on due Goal Urine microalbumin. Due on due Goal Vitamin B12. Due on due Goal Lipid panel. Due on due Goal Creatinine. Due on due Goal HIV Screen. Due on due Goal DNA Cologuard. Due on due Goal Hemoglobin A1C. Due on due Goal Foot exam. Due on 3 due Goal Fundus photograp hy of eye. Due on due Goal Fit test. Due on due Goal Dilated Retina Exam. Due on due Goal Potassium. Due on 3 due Goal Lifestyle education regardin g diet completed Goal HIV Screen. Due on due Goal Influenza vaccine. Due on due Goal H&P. Due on due Goal Zoster vaccine ( 2nd). Due on due Goal Fit test. Due on due Goal Foot exam. Due on 3 due Goal Fundus photograp hy of eye. Due on due Goal Pap/HPV testing. Due on due Goal Lipid panel. Due on due Goal DNA Cologuard. Due on due Goal Creatinine. Due on due Goal Urine microalbumin. Due on due Goal Zoster vaccine ( ). Due on due Goal Low dose CT. Due on due Goal Potassium. Due on due Goal Dilated Retina Exam. Due on due Goal Vitamin B12. Due on due Goal Colonoscopy. Due on due Goal Hemoglobin A1C. Due on due Goal Tdap. Due on due Goal Lifestyle education regardin g diet completed Goal Tobacco cessation counseling completed Goal Fit test. Due on due Goal Influenza vaccine. Due on due Goal Vitamin B12. Due on due Goal Dilated Retina Exam. Due on due Goal Low dose CT. Due on due Goal DNA Cologuard. Due on due Goal Zoster vaccine ( ). Due on due Goal HIV Screen. Due on due Goal Foot exam. Due on due Goal Lipid panel. Due on due Goal Creatinine. Due on due Goal Pap/HPV testing. Due on due Goal Tdap. Due on due Goal Zoster vaccine ( 2nd). Due on due Goal Fundus photograp hy of eye. Due on due Goal Potassium. Due on due Goal Colonoscopy. Due on due Goal H&P. Due on due Goal Lifestyle education regardin g diet completed Goal Foot exam. Due on due Goal Potassium. Due on due Goal HIV Screen. Due on due Goal Pap/HPV testing. Due on due Goal Creatinine. Due on due Goal Zoster vaccine ( 1st). Due on due Goal H&P. Due on due Goal Tdap. Due on due Goal Low dose CT. Due on due Goal Urine microalbumin. Due on A due Goal Vitamin B12. Due on due Goal Influenza vaccine. Due on Oc due Goal DNA Cologuard. Due on due Goal Fit test. Due on due Goal Dilated Retina Exam. Due on due Goal Zoster vaccine ( 2nd). Due on due Goal Fundus photograp hy of eye. Due on due Goal Colonoscopy. Due on due Goal Hemoglobin A1C. Due on due Goal Lipid panel. Due on due Goal Tobacco cessation counseling completed Goal Zoster vaccine ( ). Due on due Goal HIV Screen. Due on due Goal Urine microalbumin. Due on A due Goal Foot exam. Due on due Goal Dilated Retina Exam. Due on due Goal Vitamin B12. Due on due Goal Low dose CT. Due on due Goal H&P. Due on due Goal Potassium. Due on due Goal Hemoglobin A1C. Due on due Goal Influenza vaccine. Due on due Goal DNA Cologuard. Due on due Goal Fit test. Due on due Goal Zoster vaccine ( ). Due on due Goal Colonoscopy. Due on due Goal Pap/HPV testing. Due on due Goal Tdap. Due on due Goal Lipid panel. Due on due Goal Fundus photograp hy of eye. Due on due Goal Creatinine. Due on due Goal Lifestyle education regardin g diet completed Goal Fundus photograp hy of eye. Due on due Goal Lipid panel. Due on due Goal H&P. Due on due Goal Creatinine. Due on due Goal Urine microalbumin. Due on A due Goal Hemoglobin A1C. Due on due Goal HIV Screen. Due on due Goal Pap/HPV testing. Due on due Goal Foot exam. Due on due Goal Influenza vaccine. Due on due Goal Dilated Retina Exam. Due on due Goal Tdap. Due on due Goal Potassium. Due on due Goal Vitamin B12. Due on due Goal Lifestyle education regardin g diet completed Goal Urine microalbumin. Due on A due Goal Pap/HPV testing. Due on due Goal HIV Screen. Due on due Goal Creatinine. Due on due Goal Potassium. Due on due Goal Lipid panel. Due on due Goal Tdap. Due on due Goal Fundus photograp hy of eye. Due on due Goal H&P. Due on due Goal Foot exam. Due on due Goal Vitamin B12. Due on due Goal Hemoglobin A1C. Due on due Goal Influenza vaccine. Due on Oc due Goal Dilated Retina Exam. Due on due Goal Lifestyle education regardin g diet completed Goal Tdap. Due on due Goal H&P. Due on due Goal Hemoglobin A1C. Due on due Goal Potassium. Due on due Goal Foot exam. Due on due Goal Creatinine. Due on due Goal Dilated Retina Exam. Due on due Goal HIV Screen. Due on due Goal Urine microalbumin. Due on A due Goal Lipid panel. Due on due Goal Influenza vaccine. Due on due Goal Pap/HPV testing. Due on due Goal Vitamin B12. Due on due Goal Fundus photograp hy of eye. Due on due Goal Lifestyle education regardin g diet completed Goal Lifestyle education regardin g diet completed Goal Potassium. Due on due Goal Urine microalbumin. Due on A due Goal Dilated Retina Exam. Due on due Goal Foot exam. Due on due Goal Hemoglobin A1C. Due on due Goal Creatinine. Due on due Goal Pap/HPV testing. Due on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 conjunctival edema, conjunctival injection, eye pain, eye(s) crusted shut in AM, fever or itching. Additional information: Patient states that when symptoms started the eye was itching, with a little discomfort. preventive exam Her menses is ab sent. Negative for: breast discharge, breast lump(s), breast pain and breast self exam.Postmenopausal: Age: 36, Type: natural. Associated symptoms include anxiety, depression, difficulty falling sleep, nocturia and sleep disturbances. Pertinent negatives include abnormal bleeding (hematology), urinary incontinence, urinary urgency, vaginal discharge and vaginal itching. She does not take calcium. She does not take Vitamin D. She does not take multivitamins. She does not take Folic acid. The patient does use tobacco. Tobacco cessation has been discussed. She formerly drank alcohol. Additional information: [employer]. check for DM Patient is andre rned with swelling in her BLE. She has back issues and sees pain management. Father is DM. Patient is always thirsty. Increased urination Overweight Cough Onset: 2 to 3 we eks ago. The patient describes the cough as productive (of green sputum). It occurs persistently. The problem has become gradually worse. Context: sick family member and smoker. There are no aggravating factors. There are no relieving factors. Associated symptoms include cough, hoarseness, post-nasal drainage and sinus pressure. Pertinent negatives include chills, dyspnea, fever, nasal congestion, sore throat and wheezing. Additional information: Seen last week and given augmentin pt states without improvement. URI Onset: 2 weeks a go. The patient describes the cough as productive (of yellow sputum). It occurs persistently. The problem has become gradually worse. Context: sick family member and smoker. There are no relieving factors. Associated symptoms include cough, dyspnea, hoarseness, nasal congestion, post-nasal drainage, sinus pressure, sore throat and wheezing. Pertinent negatives include chills and fever. Est Care Est Care (comments) Here to [facility]. Previously seen by Natasha Vazquez in [place].Has long history of depression and anxiety. No previous psych hospitalizations or suicide attempts. Currently on Prozac which helps moderately. Does not see a counselor. Sees Dr. Rogers for pain management. Has had multiple injections in her back for pain relief. Currently taking Percocet 10/325mg, gets #[address] Rogers also prescribes her gabapentin. She has done several courses of PT in the past and also sees a chiropractor. Has issues with leg swelling. Keeping them elevated does help. Does not wear compression stockings.Is interested in bariatric surgery for weight loss. Apparently saw a diet doctor in [place] who prescribed her Adipex but never returned because she didn't havea car. Weight has always been an issue; her current weight is her heaviest ever.She is currently living with her father. 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 Smokes 1 PPD. does not drink alcohol. Overdue for mammogram. URI Onset: 5 days ag o. The patient describes the cough as dry, hacking, moist and productive (of yellow sputum). There are no aggravating factors. There are no relieving factors. Associated symptoms include chills, cough, dyspnea, dyspnea on exertion, hoarseness, nasal congestion, post-nasal drainage and tightness in chest. Pertinent negatives include fever and wheezing. URI (comments) She has been fee lign sick since about . She has been taking over the counter medications but it is not getting better. She is having symptoms that include coughing, sneezing, head pressure and pain, thick congestion in the face as well as the chest. She has not been having fever and is not having any muscle and body aches more than normal. Blisters Pt states she lezama s blisters on her tongue she states last couple days her tongue felt like it was burnt but she has burnt it today she woke up with blisters on her tongue.se hypertension It is currently stable. Associated symptoms include diaphoresis and fatigue. depression The patient repo rts functioning as somewhat difficult. The patient presents with anxious/fearful thoughts, depressed mood, difficulty concentrating, difficulty falling asleep, difficulty staying asleep, diminished interest or pleasure, excessive worry, fatigue, racing thoughts and restlessness. The depression is associated with irritability, sweating and trembling. hyperlipidemia The severity of the problem is mild. The problem has not changed. Patient compliance with diet is fair, with exercise is fair, with medication is good and with follow up is good. Reasons for screening include alcohol use. Associated symptoms include fatigue. Follow up Pt here for foll ow up from last visit and bloodwork.se Follow up Pt here for foll ow up from last visit to see if medication is working for her.se States has not noted much difference. Continues with pain and feels this prevents her from doing things. Reports taking medications as directed Flu shot Pt states she do esnt take the flu shot.,se Flu shot Pt didnt get flu shot this year would like results of labs from last visit.se Paperwork Pt here to get p aperwork filled out.se Here to complete paperwork for disability. Heartburn The severity of the problem is mild. The problem has not changed. Associated symptoms include heartburn. depression The patient repo rts functioning as very difficult. The patient presents with anxious/fearful thoughts, depressed mood, difficulty concentrating, difficulty falling asleep, difficulty staying asleep, diminished interest or pleasure, fatigue and restlessness. The depression is associated with irritability. hypertension It is currently stable. Associated symptoms include fatigue. cough Onset: 3 to 4 we eks ago. The patient describes the cough as productive (of yellow sputum). The problem has become gradually worse. Context: smoker. There are no aggravating factors. Relieving factors include NyQuil. Associated symptoms include cough, hoarseness, nasal congestion, post-nasal drainage, sinus pressure, sore throat and wheezing. Pertinent negatives include chills and fever. Follow up Pt here for foll ow up from last visit.se States feels stable since taper off cymbalta and start of prozac. Reports still some depressive symptoms. See PHQ-9 Pt here for follow up Pt here fo r follow up from last visit refused flu shot.se fu on depression since increase cymbalta to 90 mg daily. Pt states cannot really tell much of a difference. Still having issues with depression. Follow up Pt here for foll ow up from last visit.se Tetanus Pt hasnt had tet anus had pap at [facility].se follow up follow up on med s needs refills Here for f/u re cymbalta states feels it was helping some but feels she would benefit from a dose increase. We started this to help with depression but to also help with symptoms related to chronic pain. bloodwork thinks you were wanting to do bloodwork back pain Additional infor anuradha: wants referral to dr dubose for back pain States for some reason dr mcmahon would not see her so needing referral to different md. Establish care Pt here to [facility]ab [facility] care and to get referrals for pain management and ortho.se States needing referral to pain management. States prior pcp had been her pain management but she is no longer able to see him due to differences in opinion. states she has had chronic back issues and was told by prior ortho Dr Nuñez that she had degen disc disease l spine. Per pt dr nuñez had told her surgery was not an option. [facility] also needs referra lto ortho for her back as well as per pt last mri was several years ago. Also having issues with left elbow currently doing PT and has had an injection in the elbow without relief. [facility] has been dx with tennis elbow. Functional Status Date Functional Assessmen t No Information Instructions Date Instruction Additional Infor anuradha continue current t and meds - encouraged regular exercise - will repeat labs today Related to Type 2 diabetes mellitus with other specified complication continue current meds Related to Essential hypertension, hypertension with unspecified goal as pt has had no imp rovement with topical steroids - pt to try just using moisturizer to area Related to Mild eczema continue current meds Related to Hyperlipidemia, unspecified hyperlipidemia type Giving encouragement to exercise Related to Dietary counseling and surveillance Lifestyle education regarding di et Related to Dietary counseling and surveillance continue current meds Related to Hyperlipidemia, unspecified hyperlipidemia type pt has lost an addit ional 1 1/2 lbs - will continue current meds Related to Type 2 diabetes mellitus with other specified complication continue current meds Related to Essential hypertension, hypertension with unspecified goal will order screening mammogram for pt to complete Related to Screening mammogram for breast cancer Giving encouragement to exercise Related to Dietary counseling and surveillance Lifestyle education regarding di et Related to Dietary counseling and surveillance Pt was given an albu terol treatment with reduction in wheezing and improvement in her symptoms - will proceed with oral prednisone for the next 5 days and await her f/u Related to Mild intermittent reactive airway disease without complication Pt is finishing her course of antibiotics - she has had no persistent fever and her cough is no longer productive Related to Acute bronchitis, unspecified organism Lifestyle education regarding di et Related to Dietary counseling and surveillance Giving encouragement to exercise Related to Dietary counseling and surveillance Corid was performed and was negative - will proceed with a Z-jillian along with phenergan with DM for cough/congestion - pt to return if her symptoms do not resolve Related to URI, acute Lifestyle education regarding di et Related to Dietary counseling and surveillance Giving encouragement to exercise Related to Dietary counseling and surveillance will refill steroid creme for her ear irritation to use prn Related to History of otitis externa Proceed with lab ronnie luation - will increase metformin to 1000 mg twice a day and await f/u Related to Type 2 diabetes mellitus with other specified complication Proceed with lab evaluation toda y Related to Hyperlipidemia, unspecified hyperlipidemia type Lifestyle education regarding di et Related to Dietary counseling and surveillance Giving encouragement to exercise Related to Dietary counseling and surveillance Giving encouragement to exercise Related to Dietary counseling and surveillance Lifestyle education regarding di et Related to Dietary counseling and surveillance will get records fro m the Pain management for review Related to Left knee pain, unspecified chronicity Lifestyle education regarding di et Related to Dietary counseling and surveillance Giving encouragement to exercise Related to Dietary counseling and surveillance Pt is due for lab wo rk and eye exam - pt to make appt for routine care in the near future for this f/u - pt denies any issues or needs for meds currently Related to Diabetes mellitus type 2 in obese Will proceed with Co rtisporin Otic Suspension and instructed on use Related to Acute otitis externa of left ear, unspecified type Advised pt to stop u sing OTC meds and will restart Flonase rx and advised on how to use the meds Related to Non-seasonal allergic rhinitis, unspecified trigger Will proceed with Am oxicillin 500 mg tid for 10 days Related to Non-recurrent acute suppurative otitis media of left ear without spontaneous rupture of tympanic membrane Giving encouragement to exercise Related to Dietary counseling and surveillance Lifestyle education regarding di et Related to Dietary counseling and surveillance warm compressesDoxyc yline as prescribedBactroban ointmentKeep clean and dryFollow up if increased redness swelling drainage or fever Related to Cellulitis, unspecified cellulitis site Giving encouragement to exercise Related to Dietary counseling and surveillance Lifestyle education regarding di et Related to Dietary counseling and surveillance x-ray to be complete dFollow up if concerns Related to Neck pain ultrasound to be com pletedFollow up if increased pain, fever, changes in urination or concerns Related to Renal cyst Giving encouragement to exercise Related to Dietary counseling and surveillance Lifestyle education regarding di et Related to Dietary counseling and surveillance May continue clariti n and flonase Tylenol or ibuprofen for feverIF decreased oral intake, vomiting, fever greater than a week, shortness of breath, or no improvement to schedule a follow up Related to Acute sinusitis, recurrence not specified, unspecified location Monitor fingerstick blood sugars Continue current medicationsFollow diabetic dietFollow up in 3 months or sooner if concerns Related to Diabetes mellitus type 2 in obese Giving encouragement to exercise Related to Dietary counseling and surveillance Lifestyle education regarding di et Related to Dietary counseling and surveillance Labs to be completed Follow up with surgeonContinue current medicationsFollow up in 3 monthsCall if concerns Related to Spinal stenosis, unspecified spinal region Patient cleared for surgery and planned anesthesia. Forms filled out and faxed. Thanks for asking us to see this pleasant patient Related to Pre-op exam Giving encouragement to exercise Related to Dietary counseling and surveillance Lifestyle education regarding di et Related to Dietary counseling and surveillance Follow up with ortho erin if concerns Related to Pre-op exam Giving encouragement to exercise Related to Dietary counseling and surveillance Lifestyle education regarding di et Related to Dietary counseling and surveillance cleared for surgery as planned, forms filled out and faxed Related to Pre-op exam hold aspirin, and NS AIDS 7 days prior to surgery Related to Pre-op exam Augmentin as prescri bed Continue zyrtec and Flonasehumidifier or steamy shower for congestionDrink plenty of fluidsTylenol or ibuprofen as needed Follow up if fever, pain, shortness of breath, decreased oral intake or worsening symptoms Related to URI, acute Giving encouragement to exercise Related to Dietary counseling and surveillance Lifestyle education regarding di et Related to Dietary counseling and surveillance Follow diabetic diet Call with blood sugar readings in 2 weeks.Monitor fingerstick blood sugarsFollow up in 3 monthsCall if concerns Related to Diabetes mellitus type 2 in obese Continue current med icationFollow up with pain managementCall if concerns Related to Neuropathy Lifestyle education regarding di et Related to Dietary counseling and surveillance Giving encouragement to exercise Related to Dietary counseling and surveillance Lifestyle education regarding di et Related to Dietary counseling and surveillance Giving encouragement to exercise Related to Dietary counseling and surveillance gabapentin as prescr ibedfollow up with pain managementcall if concerns Related to Neuropathy baclofen as prescrib edMobic as prescribedFollow up with pain management Related to Lumbar degenerative disc disease Lifestyle education regarding di et Related to Dietary counseling and surveillance Giving encouragement to exercise Related to Dietary counseling and surveillance labs to be completed Sleep Hygiene as discussedWalking daily. Follow up if no improvement Related to Fatigue, unspecified type doxycycline as presc ribedTessalon perles as prescribedmedrol dose pack as prescribedallergy relief and Flonase as discussedDrink plenty of fluidsFollow up if worsening symptoms, shortness of breath, fever or no improvement Related to Sinusitis, unspecified chronicity, unspecified location Giving encouragement to exercise Related to Dietary counseling and surveillance Lifestyle education regarding di et Related to Dietary counseling and surveillance Controlled substance agreement up to dateMed tox up to dateContinue gabapentinFollow up in 3 months Related to Neuropathy Monitor fingerstick blood sugarsHealthy eating and exerciseFollow diabetic dietContinue current medicationsFollow up in 3 monthsCall if concerns Related to Diabetes mellitus type 2 in obese Giving encouragement to exercise Related to Dietary counseling and surveillance Lifestyle education regarding di et Related to Dietary counseling and surveillance Follow up with johnny davey if concerns Related to Atypical mole Controlled substance agreement signedMed tox completedGabapentin as prescribedFollow up in 1 monthCall if concerns Related to Neuropathy Augmentin as prescri bedContinue with zyrtec Continue flonaseDrink plenty of fluidsCall if drainage from , fever, pain, shortness of breath, decreased oral intake or no improvement Related to Acute sinusitis, recurrence not specified, unspecified location Symptomatic treatmen t with acetaminophen, fluids and rest. Make sure to stay well hydrated.Home quarantine/isolation: at least until results are back, if positive- then it is 10 days from the start of symptoms. Use your own room/bathroom if possible, mask if you have to be in a common area, use good hand hygiene, cleansing practices with lysol (or antiviral disinfectant), wipe high touch areas/surfaces.Call the office back for any questions and/or concerns. Shake the inhaler well prior to use. Blow out all of your air. Place the inhaler into your mouth, push the canister on the inhaler down to release the medication-as you do this, take a slow deep breath in and hold for approx 10-15 seconds (if able). Wait 2 minutes and then take your 2nd puff of the inhaler in the same manner. This will ensure the medication is going into your lungs properly and give your lungs time to open up some in order to get better efficacy of the 2nd puff (dose) of medication. Related to Upper respiratory tract infection, unspecified type We will send out the swab for PCR testing. These results can take up to 6 days.The current recommendation would be to stay at home until you are fever free without medication for 24 hours and it has been at least 10 days since the onset of symptoms or you test negative for COVID. If there is a positive COVID patient in the household, then the recommendation would be to do the 14 day self quarantine. Call the office back if you are not improving in the next week, or you have any questions or concerns. If you develop any chest pain and/or severe shortness of breath, blue around the lips and/or fingernails, confusion and/or lethargy; if you develop uncontrollable nausea and/or vomiting, uncontrollable abdominal and/or back pain, are unable to get in a comfortable position or have to be in the position, or you have/develop blood in emesis or stool.- the recommendation would be to go the ED at that time.You can call the office at any time for any questions or concerns. Related to Contact with and (suspected) exposure to other viral communicable diseases Giving encouragement to exercise Related to Dietary counseling and surveillance Lifestyle education regarding di et Related to Dietary counseling and surveillance labs to be completed Continue MetforminMonitor fingerstick blood sugarsHealthy eatingFollow up in 3 months or sooner if concerns Related to Diabetes mellitus type 2 in obese COVID 19 testing Saadia f isolate at homeFollow up if worsening shortness of breath, fever, vomiting diarrhea or worsening symptoms Related to Close exposure to COVID-19 virus Needs A1C check in July Rela angelito to Diabetes mellitus type 2 in obese Patient has had no p rior surgery complications, but does have diabetes, No history of prior infection. Pt is a smoker. Patient is having a moderate surgery. Overall patient is at low risk for surgery complications. Related to Pre-op evaluation Giving encouragement to exercise Related to Dietary counseling and surveillance Lifestyle education regarding di et Related to Dietary counseling and surveillance A1C todayFollow-up w ith results and management Related to Diabetes mellitus type 2 in obese If worsening symptom s or not improving follow-up in office Related to Pityriasis rosea Giving encouragement to exercise Related to Dietary counseling and surveillance Lifestyle education regarding di et Related to Dietary counseling and surveillance Keep area dry and clean Related to Pityriasis rosea take medications regularly Relat ed to Diabetes mellitus type 2 in obese check sugars regularly Related t o Diabetes mellitus type 2 in obese exercise 30 minutes 3 times a week, follow diabetic diet Related to Diabetes mellitus type 2 in obese target HgA1c < 7 Related to Diab etes mellitus type 2 in obese Patient to take ATB as directedWarm compresses. Follow up if not improving Related to Abscess of breast Stop nasal spray, th ink it is contributing to the headacheSwitch from loratadine to cetirizineTake antibiotic as directed. Use nasal saline Related to Sinusitis, unspecified chronicity, unspecified location Giving encouragement to exercise Related to Dietary counseling and surveillance Lifestyle education regarding di et Related to Dietary counseling and surveillance Giving encouragement to exercise Related to Dietary counseling and surveillance Lifestyle education regarding di et Related to Dietary counseling and surveillance Giving encouragement to exercise Related to Dietary counseling and surveillance Lifestyle education regarding di et Related to Dietary counseling and surveillance Giving encouragement to exercise Related to Dietary counseling and surveillance Lifestyle education regarding di et Related to Dietary counseling and surveillance Giving encouragement to exercise Related to Dietary counseling and surveillance Lifestyle education regarding di et Related to Dietary counseling and surveillance - continue conservat pamela care with ibuprofen, and decongestants- if no better after another 5 days can take the z-pack. Related to Acute bronchitis, unspecified organism stable continue current treatmen t Related to Essential hypertension, hypertension with unspecified goal labs today Related to Hyper lipidemia, unspecified hyperlipidemia type valtrex as directed Related to C old sore Take medication(s) as prescribed Related to Depression, unspecified depression type I did complete paper work pertaining to depression Related to Depression, unspecified depression type cannot address porti ons of paperwork related to chronic pain i do not treat Related to Depression, unspecified depression type Take medication(s) as prescribed Related to Depression, unspecified depression type fasting cholesterol today Relate d to Obesity (BMI 30-39.9) stable continue current treatmen t Related to Essential hypertension, hypertension with unspecified goal zantac refilled Related to Heart burn increase prozac to 60 mg daily R elated to Depression, unspecified depression type TAKE ANTIBIOTICS AND STEROIDS PRESCRIBED Related to Acute bronchitis, unspecified organism ENCOURAGED D/C TOBACCO USE Relat ed to Acute bronchitis, unspecified organism zantac given for prn use Related to Heartburn symptomatic treatmen t call if no improvement Related to URI, acute Take medication(s) as prescribed Related to Depression, unspecified depression type increase dose to 40 mg daily f/u one month Related to Depression, unspecified depression type taper off cymbalta s tart prozac f/u two months Related to Depression, unspecified depression type Take medication(s) as prescribed Related to Depression, unspecified depression type increase cymbalta 90 mg daily to f/u 2 months Related to Depression, unspecified depression type Take medication(s) as prescribed Related to Depression, unspecified depression type stable continue current treatmen t Related to Essential hypertension, hypertension with unspecified goal increase cymbalta to 60 mg daily Related to Depression, unspecified depression type Take medication(s) as prescribed Related to Depression, unspecified depression type stable continue current treatmen t Related to Essential hypertension, hypertension with unspecified goal Take medication(s) as prescribed Related to Depression, unspecified depression type start cymbalta to ad dress depression and also chronic pain issues Related to Depression, unspecified depression type stable continue current treatmen t Related to Essential hypertension, hypertension with unspecified goal referral to pain management give n Related to Chronic low back pain with right-sided sciatica, unspecified back pain laterality Take medication(s) as prescribed Related to Depression, unspecified depression type refer to podiatry Related to Ing rown nail of great toe of left foot Assessments Type Assessment Date No Information Patient Care Teams Name Effective Dates (start - stop) Status Members No Information
--- NOTE | 2025-01-03 10:07 | MR_ITS ---
APPROVED REPORT [employer] Work[employer]: CLINICAL INDICATION Cardiomyopathy evaluation TECHNIQUE Image Acquisition: Cardiac magnetic resonance (CMR) was performed on Siemens Espree MRI 1.5T scanner. Software platform sequences were performed using the Siemens Ookbee MR B19 platform. A set of three-plane, low-resolution, large [id number] localizers were initially acquired. Then axial, coronal, sagittal TrueFISP, as well as axial HASTE images, were obtained. These were followed by gated TrueFISP breathold cinematic sequences obtained in the short axis with 8 mm slices and 2 mm gaps, 2-chamber (vertical long axis), 3-chamber, 4-chamber (horizontal long axis). A bolus of contrast was injected intravenously with first-pass sequences obtained in the short axis and four-chamber planes. After approximately 10 minutes, a TI drop hammer setter up sequence was performed to determine the optimal TI time. Using the optimized TI time, delayed contrast enhancement segmented inversion???recovery TurboFLASH sequences were obtained in the short axis, 2-chamber, 3-chamber, and 4-chamber projections. 2D-velocity phase mapping was performed. Functional parameters were calculated by offline analysis on an independent workstation ([employer], [employer]). Contrast: ProHance??? (Gadoteridol) FINDINGS MORPHOLOGY AND FUNCTION Left ventricle: The left ventricle is normal in size. The indexed left ventricular end-diastolic volume (LVEDVi) is 65 ml/m2 (reference range 57-105 ml/m2 in males, 56-96 ml/m2 in females). Normal left ventricular systolic function is present. There is normal left ventricular wall thickness. There are no regional wall motion abnormalities noted. The septum is asynchronous. LVEF is calculated at 60.6% (reference range 57-77%). Right ventricle: The right ventricle is jayden dilated. The indexed right ventricular end-diastolic volume (RVEDVi) is 77 ml/m2 (reference range 61-121 ml/m2 in males, 48-112 ml/m2 in females). Low-normal right ventricular systolic function is present. RVEF is calculated at 49.0% (reference range 52-72% in males, 51-71% in females). Atria: The left atrium is mildly dilated. The maximum indexed left atrial volume is 38 ml/m2 (reference range 26-52 ml/m2 in males, 27-53 ml/m2 in females). The right atrium is mildly dilated. The maximum indexed right atrial volume is 35 ml/m2 (reference range 18-90 ml/m2). Aorta: The diameter of the aortic annulus is normal, measuring 24 mm (coronal view reference range 21-30 mm in males, 19-27 mm in females). The diameter of the aortic sinus is normal, measuring 34 mm (coronal view reference range 25-42 mm in males, 24-36 mm in females). The diameter of the sinotubular junction is normal, measuring 29 mm (coronal view reference range 18-32 mm in males, 18-28 mm in females). The diameters of the ascending and descending thoracic aorta are normal. Main pulmonary artery: The main pulmonary artery is mildly dilated, measuring 34 mm in diameter. Pericardium: The pericardial thickness is normal. The pericardial thickness measures 2.0 mm (normal < 4.0 mm). There is no pericardial effusion. VALVES The valvular morphologies in the visualized sequences appear normal. There is no significant valvular stenosis or regurgitation of the mitral, aortic, tricuspid, or pulmonic valve noted visually. Systolic anterior motion of the mitral valve is not visualized. Ratio of pulmonary to systemic flow, Qp:Qs ratio = 0.8 (normal < or = 1.2, hemodynamically significant shunt > 1.5), demonstrating no evidence of hemodynamically significant shunt. TISSUE CHARACTERIZATION Resting Perfusion: Normal myocardial blood flow at rest. No evidence of resting hypoperfusion. Myocardial Fibrosis and/or edema: Normal gadolinium kinetics are present. No evidence of late gadolinium enhancement is noted, consistent with absence of myocardial scarring, infarction, or necrosis. T2-weighted imaging demonstrates no evidence of myocardial edema or inflammation. OTHER No other significant findings are noted. However, this exam is focused on the cardiac structure and function. IMPRESSION Normal LV size with normal LV systolic function. LVEDVi= 65 ml/m2 and LVEF= 60.6%. The septum is asynchronous. Normal LV wall thickness. Mild RV dilation with low-normal RV systolic function. RVEDVi= 77 ml/m2 and RVEF= 49.0%. Mild biatrial enlargement. No CMR evidence of myocardial scarring, infarction, or necrosis. No evidence of myocardial edema or inflammation. Perfusion analysis demonstrates normal blood flow at rest with no evidence of resting hypoperfusion. Ratio of pulmonary to systemic flow, Qp:Qs ratio = 0.8 (normal < or = 1.2, hemodynamically significant shunt > 1.5), demonstrating no evidence of hemodynamically significant shunt. Main pulmonary artery is mildly dilated, measuring 34 mm in diameter. This CMR demonstrates normal LV systolic function with absence of myocardial scarring, infarct, or fibrosis. No evidence of LV cardiomyopathy. There is, however, mild RV dysfunction, as well as mild PA dilation, suggestive of underlying pulmonary disease. Pulmonary and sleep work-up may be suggested, if clinically feasible and indicated. COMPARISON None CRITICAL RESULT None COMMUNICATION As above The findings of this cardiac MR were reviewed, reported, and signed by Nik Jacobsen MD ([place]). Conclusion Electronically signed by : Criselda Jacobsen MD 01/22/2025 09:48:37
--- OUTSIDE RECORDS SUMMARY | 2025-01-03 10:08 | XMS_ITS | Continuity of Care Document ---
Author Organization [facility] Address [address] [place] [id number] Care Team Providers Care Acid Conditioner Name Role Phone ZAVERONICA Primary Care Provider Assessment No assessment recorded. Plan of Treatment Reminders Order Date Submit Date Provider Last Modified By Organization Details Last Modified Time Details Appointments ESTABLISH ED PT 30 2024 10:15A Adarsh Spring APRN Not available Not available Not available Lab None recorded. Referral None recorded. Procedures None recorded. Surgeries None recorded. Imaging None recorded. Medication Orders neomycin- polymyxin -hydrocor t 3.5 mg-10,000 unit/mL-1 % ear drops,jacqueline p [address], [address], 12/27/2024 11:22:04 atorvasta tin 20 mg tablet [address], [address], 12/27/2024 11:22:04 cefdinir 300 mg capsule [address], [address], 12/27/2024 11:22:02 prednison e 5 mg tablet [address], [place], [address], 12/27/2024 11:22:02 Patient TargetsNo targets recorded. Patient Instructions Encounter Date Encounter Id Patient Instructions Last Modified By Organization Details Last Modified Time 12/27/2024 [id number] CALL W CHANGES RTC OR ED IF SYMPTOMS CHANGE OR WORSEN KEEP NEXT INTERVAL CHECKUP [email or web address] Not available 12/27/2024 11:15:29 Reason for Referral None Reported. Problems Name Problem SNOMED Code Status Onset Date Resolution Date Notes Provider Name and Address Organization Details Recorded Time Menopausal syndrome 605483220 Active 2017 Devora Segun null, [place] - [facility] 8 08:40:24 Tobacco user 423670788 Active 2017 [facility] t [address], [place], [address], [place] - [facility] 8 10:49:00 Body mass index 30+ - obesity 631219585 Active 2019 Lupe Cardona APRN [address], [place], [address], [place] [facility] 5 14:29:49 Cervical intraepithe lial neoplasia grade 1 584007433 Active 2019 Lupe Cardoan APRN [address], [place], [address], [place] [facility] 0 15:10:38 Body mass index 40+ - severely obese 102633094 Completed 202006/08/2023 Lupe Cardona APRN [address], [place], [address], [place] [facility] 3 14:30:36 Cellulitis of skin 305043108 Completed 202106/08/2023 Lupe Cardona APRN [address], [place], [address], [place] [facility] 3 14:30:30 Electronic cigarette user 664279348 Active 2022 Lupe Cardona APRN [address], [place], [address], [place] [facility] 3 13:14:56 Type 2 diabetes mellitus 60673882 Active 2023 Vijaya Michelle null, [place] - [facility] 4 11:57:13 Sleep apnea 05399925 Active 2024 Jacqui Gregory null, [place] - [facility] 5 13:49:33 Carpal tunnel syndrome 20067527 Active 2016 Devora Cast null, [place] - [facility] 7 13:23:42 Obstructive sleep apnea syndrome 84780176 Active 2024 Leonor Leo Spring, [employer] [address], [place], [address], [place] - [facility] 5 14:59:10 Lumbago with sciatica 190166586 Active 2016 Devora Cast null, [place] - [facility] 7 13:24:02 Degeneratio n of thoracic interverteb ral disc 87173037 Active 2016 Devora Cast null, [place] - [facility] 7 13:24:36 Hypertensiv e disorder 00176244 Active 2016 Devora Cast null, [place] - [facility] 7 08:48:17 Depressive disorder 43733360 Active 2016 Devora Cast null, [place] - [facility] 7 08:48:29 Anxiety 94979499 Active 2016 Devora Cast null, [place] - [facility] 7 08:48:35 Cervicovagi nal cytology: Low grade squamous intraepithe lial lesion 254180809 Completed 201606/08/2023 Lupe Cardona, [employer] [address], [place], [address], [place] - [facility] 3 14:30:21 Problem Notes None recorded. Procedures Surgical History Date Name Laterality Status Provider Name and Address Organization Details Recorded Time 01/01/20 25 Negative Microalbumin completed Vijaya Michelle [place] - [facility] 12/31/2024 14:53:19 01/01/20 25 A1C level 6.9 and below completed Vijaya Michelle [place] - [facility] 12/31/2024 14:54:51 11/16/19 25 Date of Last Pap Smear completed Lupe Cardona APRN [address], [place], [address], [place] - [facility] 11/15/2024 14:31:02 09/12/19 25 A1C level 6.9 and below completed Vijaya Michelle [place] - [facility] 09/11/2024 11:21:08 04/13/20 24 Date of Last Mammogram completed Lupe Cardona APRN [address], [place], [address], [place] - [facility] 11/15/2024 14:30:15 04/13/20 24 Most Recent Mammogram completed Lupe Cardona APRN [address], [place], [address], [place] - [facility] 11/15/2024 14:30:34 01/25/20 24 A1C level 6.9 and below completed Vijaya Michelle [place] - [facility] 01/25/2024 12:01:23 10/20/19 24 A1C level 6.9 and below completed Cindi Cline [place] - [facility] 10/20/2023 13:38:27 07/18/19 24 Positive Microalbumin completed Vijaya Michelle [place] [facility] 07/18/2023 11:48:29 07/18/19 24 A1C level 6.9 and below completed Vijaya Michelle [place] [facility] 07/18/2023 11:51:13 01/04/20 23 Date of Last Colonoscopy completed Lupe Cardona APRN [address], [place], [address], [place] - [facility] 07/29/2023 15:03:47 08/21/19 22 Back Surgery completed Jacqui Gregory [place] - [facility] 05/31/2022 09:51:04 05/14/20 20 Colposcopy completed Beth Gomes [place] - [facility] 05/21/2020 15:13:31 05/13/20 20 cold knife cone biopsy of cervix completed Lara Landry DO [address], [place], [address], [place] - [facility] 05/25/2020 19:09:44 04/10/20 20 Colposcopy completed Lupe Brendan, [employer] [address], [place], [address], [place] - [facility] 04/10/2020 09:31:43 04/10/20 20 Colposcopy completed Lupe Brendan, [employer] [address], [place], [address], [place] - [facility] 04/14/2020 15:10:29 06/05/20 19 Back Surgery completed Jacqui Gregory [place] - [facility] 03/12/2020 13:24:27 01/17/20 19 Colposcopy completed Lara Landry, DO [address], [place], [address], [place] [facility] 01/17/2019 02:20:45 12/09/19 18 Colposcopy completed Lupe Cardona, [employer] [address], [place], [address], [place] - [facility] 12/08/2017 11:26:24 11/02/19 17 Colposcopy completed Lupe Cardona, [employer] [address], [place], [address], [place] - [facility] 11/01/2016 11:14:18 01/07/20 15 LEEP completed Devora Cast [place] - [facility] 10/12/2016 13:36:13 06/27/18 89 Cholecystectomy, laparoscopic completed Devora Ponceter [place] - [facility] 10/12/2016 13:35:02 injection of knee joint completed Jacquiadeola Gregory [place] - [facility] 11/15/2024 13:56:27 Carpal tunnel surgery completed Devora Ponceter [place] - [facility] 10/12/2016 13:34:49 Imaging Results None recorded. Procedure Notes None recorded. Medical Equipment None Reported. Allergies No known drug allergies Medications Name Sig Start Date Stop Date Status Note LastModified by Organization Details LastModified Time amoxicill in 500 mg capsule 06/08 completed Not Available Not Available Not Available Naprosyn 250 mg tablet take 1 tablet (250 mg) by oral route 2 times per day with food 12/25 completed Naprosyn 250 mg oral tablet;R ecorded Status: Recorded on: 11/25/19 13 2:08PM;D iscontin ued Status: Disconti nued on: 12/26/19 13 4:35PM;U ser: earlywin ec Not Available Not Available Not Available metformin 500 mg tablet Take by oral route for 30 days. 06/08 completed Not Available Not Available Not Available promethaz ine-DM 6.25 mg-15 mg/5 mL oral syrup 06/08 completed Not Available Not Available Not Available neomycin- polymyxin -hydrocor t 3.5 mg/mL-10, 000 unit/mL-1 % ear solution 05/31 completed Not Available Not Available Not Available prednison e 10 mg tablet take 1 mg/kg by oral route BID 12/25 completed predniso ne 10 mg oral tablet;R ecorded Status: Recorded on: 11/25/19 13 2:08PM;D iscontin ued Status: Disconti nued on: 12/26/19 13 4:35PM;U ser: earlywin ec Not Available Not Available Not Available gabapenti n 600 mg tablet Take 2 tablets 3 times a day by oral route for 30 days. 06/08 completed Not Available Not Available Not Available atorvasta tin 20 mg tablet TAKE ONE (1) TABLET BY MOUTH EVERY DAY active Not Available Not Available No t Available tizanidin e 2 mg tablet Take by oral route for 30 days. 03/12 completed Not Available Not Available Not Available cetirizin e 10 mg tablet Take 1 tablet every day by oral route for 30 days. 06/08 completed Not Available Not Available Not Available atorvasta tin 10 mg tablet Take 1 tablet po daily 05/26 completed Not Available Not Available Not Available azithromy niya 250 mg tablet TAKE 2 TABLETS (500 MG) BY ORAL ROUTE ONCE DAILY FOR 1 DAY THEN 1 TABLET (250 MG) BY ORAL ROUTE ONCE DAILY FOR 4 DAYS 11/15 completed Not Available Not Available Not Available Lidocaine Viscous 2 % mucosal solution 11/07 completed Not Available Not Available Not Available tizanidin e 4 mg tablet TAKE ONE TABLET BY MOUTH EVERY 12 HOURS active Not Available Not Available No t Available fluconazo le 150 mg tablet Take 1 tab, and repeat dose in 72 hours 03/12 completed Not Available Not Available Not Available valacyclo vir 1 gram tablet take 2 tablet (1,000 mg) by oral route twice daily for 1 day at onset of cold sore symptoms . Taken at least 12 hours apart. 06/08 completed Not Available Not Available Not Available hydrocodo ne 5 mg-acetam inophen 325 mg tablet 05/21 completed Not Available Not Available Not Available meloxicam 15 mg tablet TAKE ONE (1) TABLET BY MOUTH EVERY DAY active Not Available Not Available No t Available FreeStyle Lancets 28 gauge as directed active Not Available Not Available No t Available prednison e 20 mg tablet 06/08 completed Not Available Not Available Not Available gabapenti n 400 mg capsule Take 1 tablet 03/19 completed Not Available Not Available Not Available prednison e 5 mg tablet TAKE ONE (1) TABLET EVERY DAY BY ORAL ROUTE FOR ONE (1) DAY. active Not Available Not Available No t Available melatonin 3 mg tablet 05/31 completed Not Available Not Available Not Available valacyclo vir 500 mg tablet Take by oral route for 3 days. 06/08 completed Not Available Not Available Not Available sulfameth oxazole 800 mg-trimet hoprim 160 mg tablet 05/31 completed Not Available Not Available Not Available amitripty line 50 mg tablet Take 1 tablet every day by oral route for 30 days. 06/08 completed Not Available Not Available Not Available oxycodone -acetamin ophen 5 mg-325 mg tablet take 1 tablet by mouth every 6 hours if needed for pain 06/08 completed Not Available Not Available Not Available terbinafi ne HCl 250 mg tablet 05/31 completed Not Available Not Available Not Available famotidin e 20 mg tablet Take by oral route for 7 days. 05/31 completed Not Available Not Available Not Available temazepam 15 mg capsule Take by oral route for 7 days. 03/12 completed Not Available Not Available Not Available desonide 0.05 % topical ointment 06/08 completed Not Available Not Available Not Available oxycodone -acetamin ophen 10 mg-325 mg tablet Take po QID 03/19 completed Not Available Not Available Not Available gabapenti n 800 mg tablet TAKE ONE TABLET BY MOUTH EVERY 8 HOURS active Not Available Not Available No t Available dexametha sone 1 mg tablet take 1 tablet at 11 pm then come in to the office fasting the next morning between 8 and 9 am for labs 10/19 completed Not Available Not Available Not Available Flagyl 500 mg tablet take 1 tablet (500 mg) by oral route every 12 hours for 7 days 02/26 completed Flagyl 500 mg oral tablet;P rescribe Status: Prescrib ed on: 02/20/20 16 2:45PM;U ser: tartern; Est. Completi on: 02/27/20 16;Pharm acyVerif ied: 02/20/20 16 2:45PM Not Available Not Available Not Available baclofen 10 mg tablet TAKE ONE (1) TABLET EVERY 8 HOURS 01/24 completed Not Available Not Available Not Available benzonata te 100 mg capsule 05/31 completed Not Available Not Available Not Available cephalexi n 500 mg capsule take 1 capsule (500 mg) by oral route every 12 hours for 10 days 06/08 completed Not Available Not Available Not Available oseltamiv ir 75 mg capsule 03/12 completed Not Available Not Available Not Available metformin 1,000 mg tablet TAKE 1 TABLET BY MOUTH TWICE DAILY WITH MORNING AND EVENING MEALS active Not Available Not Available No t Available ranitidin e 150 mg tablet Take 1 po daily prn 03/12 completed Not Available Not Available Not Available docusate sodium 100 mg capsule TAKE ONE (1) CAPSULE TWICE DAILY active Not Available Not Available No t Available gabapenti n 300 mg capsule take 1 capsule by oral route 2 times a day for 30 days 03/19 completed Not Available Not Available Not Available omeprazol e 20 mg capsule,d elayed release TAKE ONE (1) CAPSULE BY MOUTH ONCE DAILY active Not Available Not Available No t Available gentamici n 0.1 % topical cream 10/13 completed Not Available Not Available Not Available diclofena c sodium 75 mg tablet,de layed release take 1 tablet (75 mg) by oral route 2 times per day pc prn 11/01 completed diclofen ac sodium 75 mg oral tablet,d elayed release (/EC); Recorded Status: Recorded on: 03/14/20 13 3:10PM;D iscontin ued Status: Disconti nued on: 11/02/19 15 4:00PM;U ser: gillisa; Est. Completi on: 06/12/20 13;Indic ation: Osteoart hritis - ([phone] 00);Prin angelito: 03/14/20 13 Not Available Not Available Not Available hydrocort isone 2.5 % topical cream 06/08 completed Not Available Not Available Not Available morphine ER 15 mg tablet,ex tended release Take 1 tablet po at bedtime 11/07 completed Not Available Not Available Not Available alcohol swabs APPLY ONE (1) PAD EVERY DAY BY TOPICAL ROUTE FOR 100 DAYS. active Not Available Not Available No t Available hydrochlo rothiazid e 25 mg tablet Take 1 tablet po daily 03/12 completed Not Available Not Available Not Available mupirocin 2 % topical ointment 06/08 completed Not Available Not Available Not Available Morrow 10 mg-325 mg tablet take 1 tablet by oral route every 6 hours as needed for pain 10/13 completed Morrow 10-325 mg oral tablet;R ecorded Status: Recorded on: 11/02/19 4:00PM;U ser: rohan Not Available Not Available Not Available Prempro 0.625 mg-2.5 mg tablet TAKE 1 TABLET BY MOUTH EVERY DAY 03/13 completed Not Available Not Available Not Available ibuprofen 600 mg tablet take 1 tablet (600 mg) by oral route 3 times per day with food 05/31 completed Not Available Not Available Not Available polyethyl luisa glycol 3350 17 gram/dose oral powder as directed 01/24 completed Not Available Not Available Not Available oxycodone -acetamin ophen 7.5 mg-325 mg tablet TAKE ONE TABLET BY MOUTH EVERY EIGHT HOURS active Not Available Not Available No t Available methylpre dnisolone 4 mg tablets in a dose pack 05/31 completed Not Available Not Available Not Available albuterol sulfate HFA 90 mcg/actua tion aerosol inhaler 03/19 completed Not Available Not Available Not Available cefdinir 300 mg capsule TAKE ONE (1) CAPSULE EVERY 12 HOURS BY ORAL ROUTE FOR 7 DAYS. active Not Available Not Available No t Available fluoxetin e 20 mg capsule Takae 2 tablet po daily 03/19 completed Not Available Not Available Not Available fluticaso ne propionat e 50 mcg/actua tion nasal spray,jacqueline pension active Not Available Not Available Not Available metformin ER 500 mg tablet,ex tended release 24 hr 05/31 completed Not Available Not Available Not Available lisinopri l 2.5 mg tablet TAKE ONE (1) TABLET BY MOUTH EVERY DAY active Not Available Not Available No t Available doxycycli ne hyclate 100 mg tablet 05/31 completed Not Available Not Available Not Available atenolol 50 mg tablet Take 1 tablet po daily 03/12 completed Not Available Not Available Not Available Ambien 10 mg tablet take 1 tablet by oral route once a day (at bedtime) as needed for 30 days 11/24 completed Ambien 10 mg oral tablet;R ecorded Status: Recorded on: 01/19/20 12 2:36PM;D iscontin ued Status: Disconti nued on: 11/25/19 13 2:08PM;U ser: gillisa; Est. Completi on: 04/18/20 12;Indic ation: Sleep-On set Insomnia - ([phone]);Prin angelito: 01/19/20 12 Not Available Not Available Not Available loratadin e 10 mg tablet Take po daily prn 03/19 completed Not Available Not Available Not Available naproxen 500 mg tablet 10/13 completed Not Available Not Available Not Available diazepam 5 mg tablet Take by oral route for 30 days. 03/12 completed Not Available Not Available Not Available amoxicill in 875 mg-potass ium clavulana te 125 mg tablet 05/31 completed Not Available Not Available Not Available Flexeril 10 mg tablet take 1 tablet (10 mg) by oral route 2 times per day 12/25 completed Flexeril 10 mg oral tablet;R ecorded Status: Recorded on: 11/25/19 13 2:08PM;D iscontin ued Status: Disconti nued on: 12/26/19 13 4:35PM;U ser: earlywin ec Not Available Not Available Not Available neomycin- polymyxin -hydrocor t 3.5 mg-10,000 unit/mL-1 % ear drops,jacqueline p INSTILL FOUR (4) DROPS INTO AFFECTED EAR(S) BY OTIC ROUTE THREE (3) TIMES PER DAY active Not Available Not Available No t Available Denta 5000 Plus 1.1 % cream Take by dental route for 15 days. 06/08 completed Not Available Not Available Not Available escitalop abhishek 10 mg tablet 08/09 completed Not Available Not Available Not Available buprenorp alyssa 8 mg-naloxo ne 2 mg sublingua l tablet 03/19 completed Not Available Not Available Not Available buprenorp alyssa HCl 8 mg sublingua l tablet 03/19 completed Not Available Not Available Not Available Prempro 0.45 mg-1.5 mg tablet TAKE 1 TABLET(S ) EVERY DAY BY ORAL ROUTE 06/12 completed Not Available Not Available Not Available Ciprodex 0.3 %-0.1 % ear drops,jacqueline pension 06/08 completed Not Available Not Available Not Available bupropion HCl XL 300 mg 24 hr tablet, extended release Take 1 tablet po daily 11/07 completed Not Available Not Available Not Available bupropion HCl XL 150 mg 24 hr tablet, extended release 11/07 completed Not Available Not Available Not Available Prempro 0.3 mg-1.5 mg tablet Take 1 tablet every day by oral route. 03/19 completed Not Available Not Available Not Available duloxetin e 30 mg capsule,d elayed release 10/13 completed Not Available Not Available Not Available duloxetin e 60 mg capsule,d elayed release 10/13 completed Not Available Not Available Not Available Lodrane 24 D 12 mg-90 mg capsule,e xtended release 2 po qD 12/07 completed Lodrane 24 D 12-90 mg oral capsule, extended release 24hr;Rec orded Status: Recorded on: 03/30/20 08 10:04PM; Disconti nued Status: Disconti nued on: 12/08/19 12 4:01PM;U ser: system Not Available Not Available Not Available FeroSul 325 mg (65 mg iron) tablet Take by oral route for 30 days. 05/31 completed Not Available Not Available Not Available levocetir izine 5 mg tablet TAKE 1 TABLET BY MOUTH EVERY DAY IN THE EVENING active Not Available Not Available No t Available Stool Softener- Stimulant Laxative 8.6 mg-50 mg tablet 05/31 completed Not Available Not Available Not Available BD Ultra-Fin e Garima Pen Needle 32 gauge x USE DIRECTED EVERY DAY active Not Available Not Available No t Available TRUEplus Lancets 33 gauge 07/18 completed Not Available Not Available Not Available TRUEplus Lancets 30 gauge as directed active Not Available Not Available No t Available Eliquis 5 mg tablet Take by oral route for 30 days. 03/12 completed Not Available Not Available Not Available Victoza 3-Saad 0.6 mg/0.1 mL (18 mg/3 mL) subcutane ous pen injector INJECT 1.8 MG SUBCUTAN EOUSLY ONCE DAILY 11/15 completed Not Available Not Available Not Available True Metrix Glucose Test Strip active q day Not Available Not Available Not Available True Metrix Glucose Meter as directed active Not Available Not Available No t Available Narcan 4 mg/actuat ion nasal spray USE DIRECTED FOR OPIOID EMERGENC Y active Not Available Not Available No t Available Trulance 3 mg tablet Take 1 tablet every day by oral route. 01/24 completed Not Available Not Available Not Available Mounjaro 5 mg/0.5 mL subcutane ous pen injector 10/19 completed Not Available Not Available Not Available Mounjaro 2.5 mg/0.5 mL subcutane ous pen injector 10/19 completed Not Available Not Available Not Available Ozempic 0.25 mg or 0.5 mg (2 mg/3 mL) subcutane ous pen injector Inject 0.5 mg every week by subcutan eous route for 28 days. 2024 active Not Available Not Available Not Avai lable Vitals Date Recorded Body height Respiratory rate Body mass index (BMI) Body weight Body temperature Heart rate Oxygen saturation Oxygen saturation in Arterial blood by Pulse oximetry Systolic And Diastolic Provider Name and Address Organization Details Last Updated DateTime 5 167.64 cm 14 /min 33.7 kg/m2 54922.8 1 g 98.6 [degF] 82 /min 98 % 98 % 126/84 mm[Hg] Jordana Flores [place] - [facility] 11:12:17 Social History Question Answer Notes LastModified by Organizat ion Details LastModified Time Tobacco Smoking Status Former Smoker Jacqui Gregory [facility], [place] - [facility] 11/15/2024 13:52:39 Do You Have An Advance Directive? No Information not available 10/13/2016 Are You Blind Or Do You Have Difficulty Seeing? No Information not available 10/12/2016 Is Blood Transfusion Acceptable In An Emergency? Yes Information not available 10/13/2016 What Is Your Level Of Caffeine Consumption? Moderate Information not available 10/13/2016 How Much Tobacco Do You Chew? None Information not available 10/12/2016 In The 14 Days Before Symptom Onset, Have You Had Close Contact With A Laboratory-confir med COVID-19 While That Case Was Ill? No [email or web address] Information not available 03/19/2021 In The 14 Days Before Symptom Onset, Have You Had Close Contact With A Person Who Is Under Investigation For COVID-19 While That Person Was Ill? No [email or web address] Information not available 03/19/2021 Have You Been To An Area Known To Be High Risk For COVID-19? No [email or web address] Information not available 03/19/2021 Are You Deaf Or Do You Have Serious Difficulty Hearing? No Information not available 10/12/2016 What Type Of Diet Are You Following? REGULAR Information not available 10/12/2016 Which Illicit Or Recreational Drugs Have You Used? Denies Information not available 10/12/2016 Have You Processed Blood Or Body Fluids From An Ebola Virus Disease Patient Without Appropriate PPE? No [email or web address] Information not available 03/19/2021 Do You Reside In Or Have You Traveled To An Area Where Ebola Virus Transmission Is Active? No Information not available 03/19/2021 What Is The Highest Grade Or Level Of School You Have Completed Or The Highest Degree You Have Received? [id number] [email or web address] Information not available 03/19/2021 Have There Been Any Changes To Your Family Or Social Situation? No [email or web address] Information no t available 03/19/2021 What Is The Fluoride Status Of Your Home? Unknown [email or web address] Information not available 03/19/2021 When Did You Quit Smoking? 1-5yearssinc elastcigaret te [email or web address] Information not available 05/31/2022 Have You Recently Or Are You Planning To Travel To An Area With Zika Virus? No [email or web address] Information not available 03/19/2021 Live Alone Or With Others? With Others Information not available 10/12/2016 Do You Have A Medical Power Of Brass Plater? No [email or web address] Information not available 03/19/2021 What Was The Date Of Your Most Recent Tobacco Screening? 12/27/2024 [email or web address] Information not available 12/27/2024 How Many Children Do You Have? 0 Information not available 10/12/2016 What Is Your Current Pack Years? [email or web address] Information not available 07/18/2023 Performs Monthly Self-breast Exam? Yes Sometimes Information no t available 10/13/2016 Do You Use Protection During Sex? No [email or web address] Information not available 06/08/2023 Do You Use Protection Against STDs? No [email or web address] Information not available 06/08/2023 What Is Your Relationship Status? [email or web address] Information not available 11/15/2024 Seat Belts Used Routinely Yes Information not available 10/13/2016 Are You Sexually Active? Yes Information not available 10/12/2016 Do You Have Smoke And Carbon Monoxide Detectors In Your Home? Yes [email or web address] Information not available 03/19/2021 At What Age Did You Start Smoking Tobacco? 19 Information not available 07/18/2023 Are You Passively Exposed To Smoke? No [email or web address] Information no t available 03/19/2021 How Much Tobacco Do You Smoke? No [email or web address] Information not available 06/08/2023 Do You Use Sunscreen Routinely? Yes Information not available 10/13/2016 On What Date Was Tobacco Cessation Counseling Provided? 12/27/2024 [id number] Information not available 12/27/2024 How Many Years Have You Smoked Tobacco? 30 Information not available 07/18/2023 Do You Have Difficulty Walking Or Climbing Stairs? No Information not available 10/12/2016 Sex: Female Functional Status Question Answer Note LastModified by Organizat ion Details LastModified Time Do you use any illicit or recreational drugs? No Information not available 03/19/2021 Do you or have you ever used any other forms of tobacco or nicotine? Yes [email or web address] Information not available 03/19/2021 What is your level of alcohol consumption? Occasional Information not available 10/12/2016 Are you currently employed? No Information not available 10/12/2016 Do you have transportation difficulties? No [email or web address] Information not available 03/19/2021 Are you able to walk? YESWOREST [email or web address] Information not available 03/19/2021 Do you have difficulty doing errands alone? No Information not available 10/12/2016 Are you able to care for yourself? Yes [email or web address] Information n ot available 03/19/2021 What is your occupation? unemployed Information not available 10/12/2016 Do you have difficulty dressing or bathing? No Information not available 10/12/2016 Do you or have you ever used e-cigarettes or vape? Current user of electronic cigarettes vapes Information not available 05/31/2022 What is your exercise level? None Information not available 10/12/2016 Mental Status Question Answer Note LastModified by Organizat ion Details LastModified Time Do you feel stressed (tense, restless, nervous, or anxious, or unable to sleep at night)? [id number] [email or web address] Information not available 03/19/2021 Do you have difficulty concentrating, remembering or making decisions? No Information no t available 10/12/2016 Family History Relationship Description Onset Age of this Age Resolved Age Notes LastModified by Organization Details LastModified Time Unspecified Relation Arthritis ntarter Not available 017 13:31:15 Unspecified Relation Neoplasm of breast niece at age 25 ntarter Not available 10/12/2016 13:31:47 Unspecified Relation History of cancer of unknown primary site Aunt ntarter Not available 13:32:21 Sister Bipolar disorder ntarter Not available 2016 13:31:24 Sister Chronic obstructive pulmonary disease ntarter Not available 2016 13:32:31 Sister Depressive disorder ntarter Not available 2016 13:32:42 Father Hypertensive disorder ntarter Not available 2016 13:32:52 Father Leukemia Not availabl e 06/08/2023 14:18:18 Mother Malignant lymphoma 47 ntarter Not available 2016 13:33:07 Brother Malignant tumor of pharynx ntarter Not available 2016 13:33:18 Brother Myocardial infarction 59 [email or web address] Not available 06/08 14:18:59 Medical History Condition Response Abnormal PAP Y Degenerative Disc Disease Y Carpal Tunnel Y Gynecological History Statement/Question Response Date of Last Mammogram 04/13/2024 Post Menopausal Bleeding N Colposcopy 05/14/2020 Current Control Method Menopause Most Recent Mammogram 04/13/2024 Last Annual Exam/Provider 11/15/2024 w/DT If Post Menopausal, Age at Menopause 37 Date of Last Colonoscopy 01/03/2023 Sexually Active? Y Menses Monthly N Date of Last Pap Smear 11/15/2024 Sexual Problems? N Hormone Replacement Therapy N Obstetrics History GPAL:G 0 P 0 0 0 0 Immunizations Vaccine Type Date Status Note Provider Nam e and Address Organization Details Recorded Time COVID-19, mRNA, LNP-S, PF, 100 mcg/0.5mL dose or 50 mcg/0.25mL dose 2 completed Jacqui Gregory null, [place] - [facility] 05/31/2022 09:43:15 COVID-19, mRNA, LNP-S, PF, 100 mcg/0.5mL dose or 50 mcg/0.25mL dose 1 completed Jacqui Gregory null, [place] - [facility] 05/31/2022 09:43:15 COVID-19, mRNA, LNP-S, PF, 100 mcg/0.5mL dose or 50 mcg/0.25mL dose 1 completed Jacqui Gregory null, [place] - [facility] 05/31/2022 09:43:15 COVID-19, mRNA, LNP-S, PF, 100 mcg/0.5mL dose or 50 mcg/0.25mL dose 1 completed Jacqui Gregory null, [place] - [facility] 05/31/2022 09:43:15 influenza, unspecified formulation 2 completed Not Available [facility] 07/18/2023 11:26:39 influenza, unspecified formulation 3 completed Not Available [facility] 07/18/2023 11:26:39 Past Encounters Encounter ID Performer Location Encounter Start Date Encounter Closed Date Diagnosis/Indication Diagnosis SNOMED-CT Code Diagnosis ICD10 Code Diagnosis Note [id number] THIAGO Lou [facility] [address] [place] [address] 12/27/2024 10:59:21 12/27/2024 11:23:50 Mixed hyperlipidemia 551961585 E78.2 Long-term current use of drug therapy 917361229 Z79.899 chronic conditions are stable. gave refills. Acute otit is externa of right ear 8963407735 860541 H60.501 Congestion of nasal sinus 04994450 R09.81 Health Concerns Section Related Observation LastModified by Organization Detai ls LastModified Time None Recorded Concern Status LastModified by Organization Details LastModified Time None Recorded Payers Encounter Date Sequence Insurance Name Policy Number Policy Cook Covered Member ID Cook Member ID Guarantor Name 12/27/2024 1 [facility] (MEDICAID HMO) Miri Hirsch [id number] Miri Hirsch Notes Date Note Type Note Provider Name and Address Organization Details Recorded Time 12/27/2024 text/html Patient is here for head congestion and ear pain. She does not want swabbed for covid, flu, and strep. ear pain is on right side. pos headache that is frontal. pos PND no sore throat. NO N/V/F/D. pos cough that dry.pt needs refills on meds. Frida Bryant PA-C [facility] [address], [place], [address], [facility] - [facility] 12/27/2024 11:22:29 OBGyn Episode No OBEpisode recorded.
--- OUTSIDE RECORDS SUMMARY | 2025-01-03 10:08 | XMS_ITS | Continuity of Care Document ---
Author Organization [place] - [facility] [place] [facility] Address [address] [place] [address] Assessment Encounter Date Assessment Date Assessment LastModified by Organization Details LastModified Time 12/05/2024 12/05/2024 Multiple risk factors for coronary artery disease. Increasing cardiac symptoms. During my examination the heart rate was around 60-65. Her blood pressure has been under excellent control. She continues to have cardiac symptoms. She has a high-risk Myoview scan. Shortness of breath has been progressive. I am going to proceed with the left and right heart catheterization. Concern for pulmonary hypertension and increased pressures in the heart given the sleep apnea in the symptoms. Heart failure symptoms as well as progressive angina. High-risk Myoview. There also was an unusual structure seen in the upper right atrium. We may need to get an MRI of the heart at some point as well. First thing is to do the heart catheterization in the right heart catheterization to see what the coronaries and pressures looked like. Hold off on beta-mony given blood pressure and heart rate. Aspirin 81 mg daily. Meds and chart reviewed in full today Risks and benefits of left heart catheterization and right heart catheterization discussed in full today. These included injury blood vessel, pseudoaneurysm, av fistula, hematoma, deep venous thrombosis and possible distal embolization causing loss of limb, stroke, heart attack and even . Patient is agreeable to the risks and benefits and wishes to proceed Patient Education was printed, I have reviewed the Past Medical, Family, and Social Histories along with ROS and all orders in today's record, and have noted any changes. Medications, charts and records reviewed in full today. LAST ECHO:11/26/2024 Mild left ventricular chamber dilation with normal left ventricular systolic function. Ejection fraction 55-60% mild left atrial enlargement, with mild right atrial enlargement. There appears to be echodense structure of the top of the right atrium. Unclear if this is a band or a possible fibro elastoma/thrombus from the pulmonary vein. normal mitral valve, with trivial mitral insufficiency. Normal aortic valve with no aortic insufficiency. Normal tricuspid valve, with mild tricuspid insufficiency. LAST ISCHEMIC EVAL: 11/26/2024 Normal exercise EKG. Moderate reduction in functional capacity. Intermediate risk Leary treadmill score secondary to functional capacity. Ischemia of the moderate portion of the anterior, apical and septal mckeon on myocardial perfusion imaging. Normal left ventricular systolic function. Ejection fraction 74%. LAST HEART CATH: None on file. LAST LDL: None on file. LAST CNI: None on file. PAST LHC: None on file. Plan: Recommend aspirin 81 mg daily Hold off on beta-mony given blood pressure and heart rate Left heart catheterization and right heart catheterization Consider MRI of the heart given the abnormality in the right atrium seen on echocardiogram Monitor blood pressure and heart rate Blood work as per primary care Follow-up in Cardiology Clinic after cardiac catheterization -Continue other current medications. -Continue aggressive risk factor modification. -Recommend LDL less than 100. -Encouraged regular exercise and activity. - IMari, am scribing for, and in the presence of, Linh Trammell MD. - ILinh M.D. performed the services as described in this documentation, as scribed by Mari Braga in my presence, and it is both accurate and complete. - This note was dictated using JetPay software. If something is unclear, or does not make sense, please do not hesitate to contact our office at [phone] for clarification. [email or web address] Not available 12/05/2024 09:35:59 Plan of Treatment Reminders Order Date Submit Date Provider Last Modified By Organization Details Last Modified Time Details Appointments OV EST 30 2024 01:30P Adarsh KEYES NP Not available Not available Not available Lab BMP, serum or plasma 2024 025 [facility] (Registration ), [address] [place] [address] , [place], [address], 12/05/2024 10:32:27 CBC 2024 025 [email or web address] [facility] (Registration ), [address] [place] [address] [place], [address], 12/12/2024 07:42:52 Referral None recorded. Procedures None recorded. Surgeries left heart catheteri zation (SURG) 2024 025 [facility] (Outpatient Surgery), [address] [place] [address] [place], [address], 12/05/2024 12:47:22 right heart catheteri zation (SURG) 2024 025 [facility] (Outpatient Surgery), [address] [place] [address] Calli Thrasher, [place], [address], 12/05/2024 12:47:22 Imaging None recorded. Medication Orders None recorded. Patient TargetsNo targets recorded. Patient InstructionsNo instructions recorded. Reason for Referral None Reported. Results Created Date Observation Date Name Description Value Unit Range Abnormal Flag Note LastModifiedBy Organization Detail LastModifiedTime 12/02/1912/01/2024 - myoca rd SPECT wm/ef palliative care nurse [facility] Name: ELIAZAR ESQUEDA [address] [place] [address] [employer] Phys: Jp MELÉNDEZ, [place] [address] : 1969 Age: 54 Sex: F Acct: [id number] Loc: G.NM PHONE #: Exam Date: 2024 Status : DEP CLI FAX #: Rad# [id number] Unit# [id number] Admit Date: 2024 EXAMS: CPT CODE: [id number] 420 MYOCAR D SPECT WM/EF SOFTWARE DATABASE ARCHITECT 42525 Reason for study: Dyspne a Patien t exerci sed accord ing to a Ata protoc ol for 4 minute s achiev ing a work level of max METs 5.9. The restin g heart rate was 71 bpm and noris to a maximu m heart rate of 142 bpm which repres ents 85% of the mariano l age-pr edicte d heart rate. Restin g blood pressu re 132/88 mmHg and noris to a maximu m blood pressu re of 148/90 mmHg. Restin g EKG shows normal sinus rhythm with no ST or T wave change s. With exerci se patien t had less than [address] segmen t depres micha. No arrhyt hmia. Heart rate and blood pressu re respon se approp riate. Modera te reduct ion in functi onal capaci ty. Leary treadm ill score plus for which is interm ediate risk. Overal l this is a normal exerci se EKG. Myovie w images obtain ed were obtain ed both at stress and rest. Stress Myovie w images show modera te decrea sed uptake of a modera te portio n of the anteri or, apical and septal mckeon. Restin g images show unifor m myocar dial activi ty. The gated images show normal wall motion with an ejecti on fracti on is 74%. 1. Normal exerci se EKG. 2. Modera te reduct ion in functi onal capaci ty. 3. Interm ediate risk Leary treadm ill score second gerri to functi onal capaci ty. 4. Ischem ia of a modera te portio n of the anteri or, apical and septal mckeon on myocar dial perfus ion imagin g. 5. Normal left ventri cular systol ic functi on. Overal l this is a high risk Myovie w scan with multip le modera te perfus ion defect s includ ing the anteri or wall Electr onical ly Signed by LINH TRAMMELL MD on 2024 at 0939 Report ed and signed by: LINH TRAMMELL MD PAGE 1 Signed Report (ROSA NUED) [facility] Name: ELIAZAR ESQUEDA [facility] [employer] Phys: Jp MELÉNDEZ, [place] [address] : 1969 Age: 54 Sex: F Acct: [id number] Loc: GEfrainCO PHONE #: Exam Date: 2024 Status : DEP CLI FAX #: Rad# [id number] Unit# [id number] Admit Date: 2024 EXAMS: CPT CODE: [id number] 420 MYOCAR D SPECT WM/EF SOFTWARE DATABASE ARCHITECT [id number] CC: Linh Trammell MD; Leonor Lucio ([facility]) Saw TRINIDAD Dictat ed Date/T mark: 2024 (0939) Techno logist : HAKEEM TOM, VEHICLE WINDOW TINTER Transc ribed Date/T mark: 2024 (39) Transc riptio nist: DR.LOH LINDA Ni onic Signat ure Date/T mark: 2024 (39) Printe d Date/T mark: 2024 (41) BATCH NO: N/A PAGE 2 Signed Report CC'ed Logic: Orderi ng Provid er: JP MELTON Attend ing Provid er: JP MELTON Referr ing Provid er: JP MELTON Consul ting Provid er: SAW ESCAMILLA [address] , [place], [address], 12/04/2024 10:14:22 12/03/19 25 12/02/2024 - ECHO w/spe c/col or flow [facility] l Name: ELIAZAR ESQUEDA [address] [place] [address] Drive Phys: Jp MELÉNDEZ, [place] [address] : 1969 Age: 54 Sex: F Acct: [id number] Loc: SHENA PHONE #: Exam Date: 2024 Status : DEP CLI FAX #: Rad# [id number] Unit# [id number] Admit Date: 2024 EXAMS: CPT CODE: [id number] ECHO W/SPEC /COLOR FLOW 56764 Reason for study: Dyspne a Left ventri cular diasto le: 5.8 Left ventri cular systol e: 4.0 Septal wall thickn ess: 0.8 Circulation Supervisor ior wall thickn ess: 0.8 Right ventri cular diasto le: 0.8 Left Atrium : 4.3 Aortic root: 2.1 TR veloci ty: 2.64 m/s Impres micha: 1. Mild left ventri cular chambe r dilata tion with normal left ventri cular systol ic functi on. Estima angelito ejecti on fracti on is 55-60% . 2. No segmen isidro wall motion abnorm alitie s 3. Mild left atrial enlarg ement, with mild right atrial enlarg ement. There appear s to be an echode nse struct ure at the top of the right atrium . Unclea r if this is a band or a possib le fibro- elasto ma/thr ombus from the pulmon gerri vein. 4. Normal right ventri cular size and functi on 5. Normal mitral valve, with trivia l mitral insuff icienc y 6. Normal aortic valve with no aortic insuff icienc y 7. No perica rdial effusi on 8. Normal aortic root 9. Normal tricus pid valve, with mild tricus pid insuff icienc y. Tricus pid regurg itant jet veloci ty is 2.64 m/s implyi ng a right ventri cular systol ic pressu re of approx imatel y 38 mmHg Electr onical ly Signed by LINH TRAMMELL MD on 2024 at 1045 Report ed and signed by: LINH TRAMMELL MD PAGE 1 Signed Report (ROSA NUED) [facility] Name: ELIAZAR ESQUEDA [facility] l [employer] Phys: Jp MELÉNDEZ, Lin[place] [address] : 1969 Age: 54 Sex: F Acct: [id number] Loc: SHENA PHONE #: Exam Date: 2024 Status : DEP CLI FAX #: Rad# [id number] Unit# [id number] Admit Date: 2024 EXAMS: CPT CODE: [id number] ECHO W/SPEC /COLOR FLOW [id number] CC: Linh Trammell MD; Leonor Lucio ([facility]) Saw TRINIDAD Dictat ed Date/T mark: 2024 (1045) Techno logist : YONI LEACH TER Transc ribed Date/T mark: 2024 (1045) Transc riptio nist: DR.LOH LINDA Ni onic Signat ure Date/T mark: 2024 (1045) Printe d Date/T mark: 2024 (1048) BATCH NO: N/A PAGE 2 Signed Report CC'ed Logic: Orderi ng Provid er: JP MELTON Attend ing Provid er: JP MELTON Referr ing Provid er: JP MELTON Consul ting Provid er: SAW ESCAMILLA [address], [place], [address], 12/04/2024 10:14:23 Result Notes None recorded. Problems Name Problem SNOMED Code Status Onset Date Resolution Date Notes Provider Name and Address Organization Details Recorded Time Obstructive sleep apnea syndrome 14249004 Active 2024 Linh Trammell MD [address] [place] [address],Hailee te [address] [place] [address], [address], [place] - [facility] [place] [facility] [place] 5 10:36:36 Calcification of coronary artery 585504614 Active 2024 Linh Trammell MD [address] [place] [address],[place] [address], [place], [address], [place] - [facility] [place] [facility] [place] 5 10:36:45 Prediabetes 209433065 Active 2024 Linh Trammell MD [address] [place] [address],[place] [address], [place], [address], [place] - [facility] [place] [facility] [place] 5 10:36:52 Mixed hyperlipidemia 906474278 Active 2024 Linh Trammell MD [address] [place] [address],[place] [address], [place], [address], [place] - [facility] [place] [facility] [place] 5 10:37:02 Essential hypertension 65414227 Active 2024 Linh Trammell MD [address] [place] [address],[address], [address], [place] - [facility] [place] 5 10:37:10 Edema of lower extremity 844972139 Active 2024 Linh Trammell MD [address] [place] [address],[address], [address], [place] - [facility] [place] 5 10:37:16 Diastolic dysfunction 7533071 Active 2024 Linh Trammell MD [address] [place] [address],[address], [address], [place] - [facility] [place] 5 10:38:03 Angina pectoris 892203356 Active 2024 Linh Trammell MD [address] [place] [address],[address], [address], [place] - [facility] [place] [facility] [place] 5 08:13:27 Dyspnea on exertion 04172008 Active 2024 Linh Trammell MD [address] [place] [address],[address], [address], [place] - [facility] [place] [facility] [place] 5 08:14:12 Abnormal results of cardiovascular function studies 334217812 Active 2024 Linh Trammell MD [address] [place] [address],[address], [address], [place] - [facility] [place] [facility] [place] 5 09:36:25 Problem Notes None recorded. Medical Equipment None Reported. Allergies No known drug allergies Medications Name Sig Start Date Stop Date Status Note LastModified by Organization Details LastModified Time atorvastatin 20 mg tablet TAKE ONE (1) TABLET BY MOUTH EVERY DAY active Not Available Not Available No t Available tizanidine 4 mg tablet TAKE ONE TABLET BY MOUTH EVERY 12 HOURS active Not Available Not Available No t Available meloxicam 15 mg tablet TAKE ONE (1) TABLET BY MOUTH EVERY DAY active Not Available Not Available No t Available gabapentin 800 mg tablet TAKE ONE TABLET BY MOUTH EVERY 8 HOURS active Not Available Not Available No t Available metformin 1,000 mg tablet TAKE 1 TABLET BY MOUTH TWICE DAILY WITH MORNING AND EVENING MEALS active Not Available Not Available No t Available docusate sodium 100 mg capsule TAKE ONE (1) CAPSULE TWICE DAILY active Not Available Not Available No t Available omeprazole 20 mg capsule,delay ed release TAKE ONE (1) CAPSULE BY MOUTH ONCE DAILY active Not Available Not Available No t Available oxycodone-caitlin taminophen 7.5 mg-325 mg tablet TAKE ONE TABLET BY MOUTH EVERY EIGHT HOURS active Not Available Not Available No t Available lisinopril 2.5 mg tablet TAKE ONE (1) TABLET BY MOUTH EVERY DAY active Not Available Not Available No t Available levocetirizin e 5 mg tablet TAKE 1 TABLET BY MOUTH EVERY DAY IN THE EVENING active Not Available Not Available No t Available Narcan 4 mg/actuation nasal spray USE DIRECTED FOR OPIOID EMERGENCY active Not Available Not Available No t Available Vitals Date Recorded Body height Body mass index (BMI) Body weight Oxygen saturation Oxygen saturation in Arterial blood by Pulse oximetry Heart rate Systolic And Diastolic Provider Name and Address Organization Details Last Updated DateTime 5 165.1 cm 34.6 kg/m2 50864.2 1 g 98 % 98 % 78 /min 114/72 mm[Hg] Bernice Smileyrebeka kasper [place] - [facility] [place] [facility] [place] 5 07:56:01 Social History None recorded. Functional Status Question Answer Note LastModified by Organizat ion Details LastModified Time Do you or have you ever used any other forms of tobacco or nicotine? Yes [email or web address] Information not available 10/24/2024 Do you or have you ever used e-cigarettes or vape? Current user of electronic cigarettes [id number] Information not available 10/24/2024 Mental Status None recorded. Family History Nothing Reported. Medical History No medical history recorded. Gynecological HistoryNo gynecological history recorded. Obstetrics History GPAL:G 0 P 0 0 0 0 Past Encounters Encounter ID Performer Location Encounter Start Date Encounter Closed Date Diagnosis/Indication Diagnosis SNOMED-CT Code Diagnosis ICD10 Code Diagnosis Note [id number] Linh Trammell MD [place] [address] [place] [address] 11/21/2024 08:37:40 11/21/2024 09:11:15 Dyspnea 138869384 R06.02 Obstructiv e sleep apnea syndrome 65186420 G47.33 Patient states she is doing well w/ Cpap machine Calcificat ion of coronary artery 056925490 I25.10 Prediabetes 916577172 R7 3.03 Mixed hyperlipidemia 267 431122 E78.2 Essential hypertension 78099807 I10 Edema of l ower extremity 495586178 R60.0 Diastolic dysfunction 35 25116 I51.89 [id number] Linh Trammell MD [address] [place] [address] 12/05/2024 07:49:23 12/05/2024 08:20:05 Dyspnea 903105444 R06.02 Obstructiv e sleep apnea syndrome 85693910 G47.33 Patient states she is doing well w/ Cpap machine. Still with shortness of breath and fatigue Calcificat ion of coronary artery 771031879 I25.10 Prediabetes 028121750 R7 3.03 Mixed hyperlipidemia 267 715314 E78.2 Essential hypertension 19291061 I10 Edema of l ower extremity 398450023 R60.0 Diastolic dysfunction 35 12913 I51.89 Angina pectoris 98832136 0 I20.9 Dyspnea on exertion 6084 5006 R06.09 Abnormal r esults of cardiovascular function studies 568473079 R94.30 Health Concerns Section Related Observation LastModified by Organization Detai ls LastModified Time None Recorded Concern Status LastModified by Organization Details LastModified Time None Recorded Payers Encounter Date Sequence Insurance Name Policy Number Policy Cook Covered Member ID Cook Member ID Guarantor Name 12/05/2024 1 [facility] (MEDICAID HMO) Miri Joycelyn [id number] Miri Esqueda Notes Date Note Type Note Provider Name and Address Organization Details Recorded Time 12/05/2024 text/html Still with shortness of breath despite treatment for obstructive sleep apnea. Still with fatigue. When she gets short of breath she gets some pressure and tightness in the chest with some mild palpitations. Upper sternal region. No radiation. Shortness of breath associated but no nausea. No nitroglycerin use. Lasts a couple of minutes and resolves on its own. No nausea or diaphoresis. Here today for follow-up of test results Linh Trammell MD [address] [facility],[address], [place], [address], [facility] - [facility] [place] 12/05/2024 09:36:46 OBGyn Episode No OBEpisode recorded.
--- OUTSIDE RECORDS SUMMARY | 2025-01-03 10:08 | XMS_ITS | Continuity of Care Document ---
Author Organization [place] - [facility] - [place] & [place] [facility] Heart Address [address] [place] [address] [place] [address] Assessment Encounter Date Assessment Date Assessment LastModified by Organization Details LastModified Time 11/21/2024 11/21/2024 Echocardiogram Myoview still pending. She did have a sleep study and does have obstructive sleep apnea. Multiple risk factors for coronary disease. Increasing dyspnea and fatigue although improved. Multiple risk factors for coronary artery disease. Hypertension, hyperlipidemia prediabetes and obesity. She still needs the echocardiogram and Myoview. Probable diastolic dysfunction. EKG showed normal sinus rhythm low voltage. She is on lisinopril. We have not started a low-dose beta-mony because of the fatigue. Blood pressure and heart rate has been under good control. We will get the echo and Myoview. We will see her back in 3 weeks. Meds and chart reviewed in full today Patient Education was printed, I have reviewed the Past Medical, Family, and Social Histories along with ROS and all orders in today's record, and have noted any changes. Medications, charts and records reviewed in full today. - EKG From last visit showed normal sinus rhythm with low voltage. Nonspecific changes Sleep study showed obstructive sleep apnea. Doing well with the CPAP machine. Symptoms have improved - LAST ECHO: None on file. LAST ISCHEMIC EVAL: None on file. LAST HEART CATH: None on file. LAST LDL: None on file. LAST CNI: None on file. PAST LHC: None on file. Plan: Echocardiogram Exercise Myoview Risk factor modification Consider low-dose beta-mony Aspirin 81 mg daily Encourage exercise and weight loss Follow-up in Cardiology Clinic in 3 weeks Continue CPAP -Continue other current medications. -Continue aggressive risk factor modification. -Recommend LDL less than 100. -Encouraged regular exercise and activity. - I, Mari Braga, am scribing for, and in the presence of, Linh Trammell MD. - ILinh M.D. performed the services as described in this documentation, as scribed by Mari Braga in my presence, and it is both accurate and complete. - This note was dictated using [employer] software. If something is unclear, or does not make sense, please do not hesitate to contact our office at [phone] for clarification. [email or web address] Not available 11/24/2024 07:22:23 Plan of Treatment Reminders Order Date Submit Date Provider Last Modified By Organization Details Last Modified Time Details Appointments OV EST 30 025 01:30PM MARTHA KEYES NP Not available Not available Not available Lab None record ed. Referral None record ed. Procedures None record ed. Surgeries None record ed. Imaging None record ed. Medication Orders None record ed. Patient TargetsNo targets recorded. Patient InstructionsNo instructions recorded. Reason for Referral None Reported. Results Created Date Observation Date Name Description Value Unit Range Abnormal Flag Note LastModifiedBy Organization Detail LastModifiedTime 10/25/19 25 elect rocar diogr am No observ ation record ed. [address] [place], [place], [address], 10/24/2024 10:09:20 10/25/19 25 10/24/2024 elect rocar diogr am No observ ation record ed. [email or web address] Not Available 2024 12:15:40 11/02/19 25 10/31/2024 polys omnog grzegorz (PROC ) No observ ation record ed. [address], [place], [address], 11/02/2024 15:03:59 12/02/19 25 12/01/2024 - [address] SPECT wm/ef manager plumbing [facility] Name: ELIAZAR ESQUEDA [facility] [employer] [address] Phys: Jp MELÉNDEZ, [place] [address] : 1969 Age: 54 Sex: F Acct: [id number] Loc: SHENA PHONE #: Exam Date: 2024 Status : DEP CLI FAX #: [phone] Rad# [id number] Unit# [id number] Admit Date: 2024 EXAMS: CPT CODE: [id number] 420 MYOCAR D SPECT WM/EF THREAD SPINNER 72393 Reason for study: Dyspne a Patien t [...] MD PAGE 1 Signed Report (ROSA NUED) [facility] Name: ELIAZAR ESQUEDA [employer] Phys: Jp MELÉNDEZ, [place] [address] : 1969 Age: 54 Sex: F Acct: [id number] Loc: GEfrainNM PHONE #: Exam Date: 2024 Status : DEP CLI FAX #: Rad# [id number] Unit# [id number] Admit Date: 2024 EXAMS: CPT CODE: [id number] MYOCAR D SPECT WM/EF THREAD SPINNER 47169 CC: Linh Trammell MD; Leonor Lucio ([facility]) Saw TRINIDAD Dictat ed Date/T mark: 2024 (0939) Techno logist : HAKEEM TOM, [facility] Transc ribed Date/T mark: 2024 (0939) Transc riptio nist: DR.LOH LINDA Ni onic Signat ure Date/T mark: 2024 (0939) Printe d Date/T mark: 2024 (0941) BATCH NO: N/A PAGE 2 Signed Report CC'ed Logic: Orderi ng Provid er: JP MELTON Attend ing Provid er: JP MELTON Referr ing Provid er: JP MELTON Consul ting Provid er: SAW ESCAMILLA [place] [address] [place], [address], 12/04/2024 10:14:22 12/03/19 25 12/02/2024 - ECHO w/spe c/col or flow [facility] Name: ELIAZAR ESQUEDA [employer] Phys: Jp MELÉNDEZ, [place] [address] : 1969 Age: 54 Sex: F Acct: [id number] Loc: SHENA PHONE #: [phone] Exam Date: 2024 Status : DEP CLI FAX #: Rad# [id number] Unit# [id number] Admit Date: 2024 EXAMS: CPT CODE: [id number] ECHO W/SPEC /COLOR FLOW 56741 Reason for study: Dyspne a Left ventri cular diasto le: 5.8 Left ventri cular systol e: 4.0 Septal wall thickn ess: 0.8 Tax Services Manager ior wall thickn ess: 0.8 Right ventri [...] TRAMMELL MD PAGE 1 Signed Report (ROSA NUHERBERT) [facility] Name: ELIAZAR ESQUEDA [address] [place] [address] Phys: Jp MELÉNDEZ, [place] [address] : 1969 Age: 54 Sex: F Acct: [id number] Loc: SHENA PHONE #: Exam Date: 2024 Status : DEP CLI FAX #: Rad# [id number] Unit# [id number] Admit Date: 2024 EXAMS: CPT CODE: [id number] ECHO W/SPEC /COLOR FLOW 20002 CC: Linh Trammell MD; Leonor Lucio ([facility]) Saw TRINIDAD Dictat ed Date/T mark: 2024 [...] MELTON Consul ting Provid er: SAW ESCAMILLA [address], [address], 12/04/2024 10:14:23 Result Notes None recorded. Problems Name Problem SNOMED Code Status Onset Date Resolution Date Notes Provider Name and Address Organization Details Recorded Time Obstructive sleep apnea syndrome 36579272 Active 2024 Linh Trammell MD [address] [place] [address],[facility] [address], [place], [address] [place] [address] & [place] 5 10:36:36 Calcification of coronary artery 413698722 Active 2024 Linh Trammell MD [facility] [address] [address], [place], [address], [place] [facility] & [place] 5 10:36:45 Prediabetes 366245678 Active 2024 Linh Trammell MD [facility] [address], [place], [address], [place] [facility] & [place] 5 10:36:52 Mixed hyperlipidemia 847569960 Active 2024 Linh Trammell MD [facility] [address], [place], [address], [place] [facility] & [place] 5 10:37:02 Essential hypertension 37169199 Active 2024 Linh Trammell MD [facility] [employer],[address], [place], [address], [place] [facility] & [place] 5 10:37:10 Edema of lower extremity 926124391 Active 2024 Linh Trammell MD [facility] [address], [place], [address], [place] - [facility] - [facility] & [facility] 5 10:37:16 Diastolic dysfunction 0063027 Active 2024 Linh Trammell MD [facility] [address], [place], [address], [place] [facility] & [place] 5 10:38:03 Angina pectoris 032366445 Active 2024 Linh Trammell MD [facility] [address], [place], [address], [place] [facility] & [place] 5 08:13:27 Dyspnea on exertion 90722358 Active 2024 Linh Trammell MD [facility] [employer],[address], [place], [address], [place] [facility] & [place] 5 08:14:12 Abnormal results of cardiovascular function studies 828628792 Active 2024 Linh Trammell MD [address] [place] [address],[address], [address] [place] [address] - [facility] & [place] 5 09:36:25 Problem Notes None recorded. Medical [...] Details Last Updated DateTime 5 165.1 cm 35.1 kg/m2 93437.9 9 g 97 % 97 % 82 /min 110/88 mm[Hg] Bernice kasper [place] - [facility] & [place] 5 08:54:29 Social History None recorded. Functional Status Question Answer Note LastModified by Organizat ion Details LastModified Time Do you or have you ever used any other forms of tobacco or nicotine? Yes [email or web address] Information not available 10/24/2024 Do you or have you ever used e-cigarettes or vape? Current user of electronic cigarettes [email or web address] Information not available 10/24/2024 Mental Status None recorded. Family History Nothing Reported. Medical History No medical history recorded. Gynecological HistoryNo gynecological history recorded. Obstetrics History GPAL:G 0 P 0 0 0 0 Past Encounters Encounter ID Performer Location Encounter Start Date Encounter Closed Date Diagnosis/Indication Diagnosis SNOMED-CT Code Diagnosis ICD10 Code Diagnosis Note [id number] Linh Trammell MD [address] [place] [address] [place] [address] 6 10/24/2024 09:05:13 10/24/2024 10:40:29 Dyspnea 739066485 R06.02 Obstructiv e sleep apnea syndrome 79903368 G47.33 Calcificat ion of coronary artery 045275729 I25.10 Prediabetes 697636142 R7 3.03 Mixed hyperlipidemia 267 027094 E78.2 Essential hypertension 51644306 I10 Edema of l ower extremity 071529351 R60.0 Diastolic dysfunction 35 59019 I51.89 [id number] Linh Trammell MD [address] [place] [address] [place], [place] [address] 11/21/2024 08:37:40 11/21/2024 09:11:15 Dyspnea 194824527 R06.02 Obstructiv e sleep apnea syndrome 86738073 G47.33 Patient states she is doing well w/ Cpap machine Calcificat ion of coronary artery 985970989 I25.10 Prediabetes 379026629 R7 3.03 Mixed hyperlipidemia 267 494200 E78.2 Essential hypertension 33059220 I10 Edema of l ower extremity 385662234 R60.0 Diastolic dysfunction 35 36373 I51.89 Health Concerns Section Related Observation LastModified by Organization Detai ls LastModified Time None Recorded Concern Status LastModified by Organization Details LastModified Time None Recorded Payers Encounter Date Sequence Insurance Name Policy Number Policy Cook Covered Member ID Cook Member ID Guarantor Name 11/21/2024 1 [facility] (MEDICAID HMO) Miri Esqueda [id number] Miri Esqueda Notes Date Note Type Note Provider Name and Address Organization Details Recorded Time 11/21/2024 text/html Patient is here for a 4 week follow-up. She is doing well with the CPAP. Here today to go over test results. Linh Trammell MD [address] [place] [address],[address], [place], [address], [facility] 11/24/2024 07:22:39 OBGyn Episode No OBEpisode recorded.
--- OUTSIDE RECORDS SUMMARY | 2025-01-03 10:11 | XMS_ITS | Continuity of Care Document ---
[facility] Organization [facility] Address [address] [place] [address] [place] [address] Care Team Providers Care Reconsignment Clerk Name Role Phone VERONICA MENDENHALL Primary Care Provider Assessment No assessment recorded. Plan of Treatment Reminders Order Date Submit Date Provider Last Modified By Organization Details Last Modified Time Details Appointments ESTABLISH ED PT 30 2024 10:15A Adarsh Spring, VIVI Not available Not available Not available Lab HbA1c (hemoglob in A1c), blood 2024 025 [facility], [address] [place] [address] , [place], [address], 12/31/2024 15:16:40 glucose, fingersti ck, blood 2024 025 [facility], [address] [place] [address] , [place], [address], 12/31/2024 15:16:40 microalbu min/creat inine, mass ratio, urine 2024 025 [facility], [address] [place] [address] , [place], [address], 12/31/2024 15:16:40 Referral None recorded. Procedures None recorded. Surgeries None recorded. Imaging LDCT, chest, for lung cancer screening 2024 025 [facility], [address] [place] [address], [place], [address], 12/31/2024 17:00:39 Medication Orders None recorded. Patient TargetsNo targets recorded. Patient Instructions Encounter Date Encounter Id Patient Instructions Last Modified By Organization Details Last Modified Time 12/31/2024 [id number] medical record request* - please send me her last diabetic eye exam [facility] Not available 12/31/2024 16:50:25 high cholesterol : care instructions [facility] Not available 12/31/2024 15:16:40 sleep apnea: car e instructions [facility] Not available 12/31/2024 15:16:40 body mass index: care instructions [facility] Not available 12/31/2024 15:16:40 learning about healthy weight [facility] Not available 12/31/2024 15:16:40 obesity educatio n information [facility] Not available 12/31/2024 15:16:40 Continue Metformin 1,000 mg twice a day. Increase Ozempic to 2 mg weekly. Check your fasting sugar daily and bring meter in with you to each visit. We will get you set up for low dose CT of your chest for lung cancer screening. Follow up with your other health care providers as scheduled. I would like to see you back in 3 months. jessi Not available 12/31/2024 15:06:43 Reason for Referral None Reported. Results Created Date Observation Date Name Description Value Unit Range Abnormal Flag Note LastModifiedBy Organization Detail LastModifiedTime 01/01/2012/31/2024 HbA1c (hemo globi n A1c), blood HbA1C 5.2 % Not Available [address] , [place], [address], 12/31/2024 11:26:50 01/01/20 25 12/31/2024 gluco seranda, blood Blood Glucose: mg/dl 103 Not Available [address] , [place], [address], 12/31/2024 11:26:50 01/01/20 25 12/31/2024 micro album in/cr eatin ine, mass ratio , urine Microalbumin 30 mg/L Not Available [address] , [place], [address], 12/31/2024 14:37:48 01/01/20 25 12/31/2024 micro album in/cr eatin ine, mass ratio , urine Creatinine 100 mg/dL Not Available [address] , [place], [address], 12/31/2024 14:37:48 01/01/20 25 12/31/2024 micro album in/cr eatin ine, mass ratio , urine Ratio <30 mg/g normal Not Available [address] , [place], [address], 12/31/2024 14:37:48 Result Notes None recorded. Problems Name Problem SNOMED Code Status Onset Date Resolution Date Notes Provider Name and Address Organization Details Recorded Time Menopausal syndrome 791103378 Active 2017 Devora Cast [facility], [place] - [facility] 8 08:40:24 Tobacco user 861398725 Active 2017 [facility] Care Managemen t [address], [place], [address], [place] - [facility] 8 10:49:00 Body mass index 30+ - obesity 335655180 Active 2019 Lupe Cardona APRN [address], [place], [address], [place] - [facility] 5 14:29:49 Cervical intraepithe lial neoplasia grade 1 757203689 Active 2019 Lupe Cardona APRN [address], [place], [address], [place] - [facility] 0 15:10:38 Body mass index 40+ - severely obese 518133745 Completed 202006/08/2023 Lupe Cardona APRN [address], [place], [address], [place] - [facility] 3 14:30:36 Cellulitis of skin 987208173 Completed 202106/08/2023 Luep Cardona, BEAUTY DIRECTOR [address], [place], [address], [place] [facility] 3 14:30:30 Electronic cigarette user 431919414 Active 2022 Lupe Cardona, BEAUTY DIRECTOR [address], [place], [address], [place] [facility] 3 13:14:56 Type 2 diabetes mellitus 37670761 Active 2023 Vijaya Michelle null, [place] - [facility] 4 11:57:13 Sleep apnea 92211334 Active 2024 Jacqui Gregory null, [place] - [facility] 5 13:49:33 Carpal tunnel syndrome 61678687 Active 2016 Devora Segun null, [place] - [facility] 7 13:23:42 Obstructive sleep apnea syndrome 44515303 Active 2024 Leonro Leo Spring, BEAUTY DIRECTOR [address], [place], [address], [place] [facility] 5 14:59:10 Lumbago with sciatica 202363106 Active 2016 Devora Segun null, [place] - [facility] 7 13:24:02 Degeneratio n of thoracic interverteb ral disc 72447537 Active 2016 Devora Segun null, [place] [facility] 7 13:24:36 Hypertensiv e disorder 56021460 Active 2016 Devora Segun null[place] [facility] 7 08:48:17 Depressive disorder 93858936 Active 2016 Devora Segun null, [place] [facility] 7 08:48:29 Anxiety 63175970 Active 2016 Devora Segun null, [place] - [facility] 7 08:48:35 Cervicovagi nal cytology: Low grade squamous intraepithe lial lesion 383084667 Completed 201606/08/2023 Lupe Cardona APRN [address], [place], [address], [place] [facility] 14:30:21 Problem Notes None recorded. Procedures Surgical History Date Name Laterality Status Provider Name and Address Organization Details Recorded Time 01/01/20 25 Negative Microalbumin completed Vijaya Michelle [place] - [facility] 12/31/2024 14:53:19 01/01/20 25 A1C level 6.9 and below completed Vijaya Michelle [place] [facility] 12/31/2024 14:54:51 11/16/19 25 Date of Last Pap Smear completed Lupe Cardona APRN [address], [place], [address], [place] [facility] 11/15/2024 14:31:02 09/12/19 25 A1C level 6.9 and below completed Vijaya Michelle [place] [facility] 09/11/2024 11:21:08 04/13/20 24 Date of Last Mammogram completed Lupe Cardona APRN [address], [place], [address], [place] [facility] 11/15/2024 14:30:15 04/13/20 24 Most Recent Mammogram completed Lupe Cardona APRN [address], [place], [address], [place] [facility] 11/15/2024 14:30:34 01/25/20 24 [...] completed Lupe Cardona APRN [address], [place], [address], [place] [facility] 07/29/2023 15:03:47 08/21/19 22 Back Surgery completed Jacqui Gregory [place] [facility] 05/31/2022 09:51:04 05/14/20 Colposcopy completed Beth Gomes [place] - [facility] 05/21/2020 15:13:31 05/13/20 20 cold knife cone biopsy of cervix completed Lara Landry DO [address], [place], [address], [place] [facility] 05/25/2020 19:09:44 04/10/20 Colposcopy completed Lupe Cardona, BEAUTY DIRECTOR [address], [place], [address], [place] [facility] 04/10/2020 09:31:43 04/10/20 Colposcopy completed Lupe Cardona, BEAUTY DIRECTOR [address], [place], [address], [place] [facility] 04/14/2020 15:10:29 06/05/20 19 Back Surgery completed Jacqui Gregory [place] [facility] 03/12/2020 13:24:27 01/17/20 19 Colposcopy completed Lara Landry DO [address], [place], [address], [place] [facility] 01/17/2019 02:20:45 12/09/19 18 Colposcopy completed Lupe Cardona, BEAUTY DIRECTOR [address], [place], [address], [place] [facility] 12/08/2017 11:26:24 11/02/19 17 Colposcopy completed Lupe Cardona APRN [address], [place], [address], [place] [facility] 11/01/2016 11:14:18 01/07/20 15 LEEP completed Devora Cast [place] - [facility] 10/12/2016 13:36:13 06/27/18 89 Cholecystectomy, laparoscopic completed Devora Cast [place] - [facility] 10/12/2016 13:35:02 injection of knee joint completed Jacqui Gregory [place] [facility] 11/15/2024 13:56:27 Carpal tunnel surgery completed Devora Cast [place] [facility] 10/12/2016 13:34:49 Imaging Results None [...] completed Not Available Not Available Not Available Vaughan 10 mg-325 mg tablet take 1 tablet by oral route every 6 hours as needed for pain 10/13 completed Vaughan 10-325 mg oral tablet;R ecorded Status: Recorded on: 11/02/19 15 4:00PM;U ser: [email or web address] Not Available Not Available Not Available Prempro [...] 04/18/20 12;Indic ation: Sleep-On set Insomnia - ([phone] 90);Prin angelito: 01/19/20 12 Not Available Not [...] e Garima Pen Needle 32 gauge x /32 USE DIRECTED EVERY DAY active Not Available [...] Avai lable Vitals Date Recorded Body height Body mass index (BMI) Body weight Body temperature Heart rate Oxygen saturation Oxygen saturation in Arterial blood by Pulse oximetry Respiratory rate Systolic And Diastolic Provider Name and Address Organization Details Last Updated DateTime 5 167.64 cm 34 kg/m2 57667.2 g 98.3 [degF] 77 /min 98 % 98 % 18 /min 138/80 mm[Hg] Vijaya Michelle [place] - [facility] 5 14:49:32 Social History Question Answer Notes LastModified by Organizat ion Details LastModified Time Tobacco Smoking Status Former Smoker Jacqui Gregory [place], [place] - [facility] 11/15/2024 13:52:39 Do You [...] COVID-19 While That Case Was Ill? No [email or web address] Information not available 03/19/2021 In The 14 Days Before Symptom Onset, Have You Had Close Contact With A Person Who Is Under Investigation For COVID-19 While That Person Was Ill? No [email or web address] Information not available 03/19/2021 Have You Been To An Area Known To Be High Risk For COVID-19? No [email or web address] Information not available 03/19/2021 Are You Deaf Or Do You Have Serious Difficulty Hearing? No Information not available 10/12/2016 What Type Of Diet Are You Following? REGULAR Information not available 10/12/2016 Which Illicit Or Recreational Drugs Have You Used? Denies Information not available 10/12/2016 Have You Processed Blood Or Body Fluids From An Ebola Virus Disease Patient Without Appropriate PPE? No [email or web address] Information not available 03/19/2021 Do You Reside In Or Have You Traveled To An Area Where Ebola Virus Transmission Is Active? No [email or web address] Information not available 03/19/2021 What Is The Highest Grade Or Level Of School You Have Completed Or The Highest Degree You Have Received? RU62127-1 [email or web address] Information not available 03/19/2021 Have There Been Any Changes To Your Family Or Social Situation? No Information no t available 03/19/2021 What Is The Fluoride Status Of Your Home? Unknown [email or web address] Information not available 03/19/2021 When Did You Quit Smoking? 1-5yearssinc elastcigaret te [email or web address] Information not available 05/31/2022 Have You Recently Or Are You Planning To Travel To An Area With Zika Virus? No [email or web address] Information not available 03/19/2021 Live Alone Or With Others? With Others Information not available 10/12/2016 Do You Have A Medical Power Of Seat Pack Inspector? No [email or web address] Information not available 03/19/2021 What Was The Date Of Your Most Recent Tobacco Screening? 12/27/2024 [email or web address] Information not available 12/27/2024 How Many Children Do You Have? 0 Information not available 10/12/2016 What Is Your Current Pack Years? [email or web address] years Information not available 07/18/2023 Performs Monthly Self-breast Exam? Yes Sometimes Information no t available 10/13/2016 Do You Use Protection During Sex? No [email or web address] Information not available 06/08/2023 Do You Use Protection Against STDs? No Information not available 06/08/2023 What Is Your Relationship Status? [email or web address] Information not available 11/15/2024 Seat Belts Used Routinely Yes Information not available 10/13/2016 Are You Sexually Active? Yes Information not available 10/12/2016 Do You Have Smoke And Carbon Monoxide Detectors In Your Home? Yes [email or web address] Information not available 03/19/2021 At What Age Did You Start Smoking Tobacco? 19 Information not available 07/18/2023 Are You Passively Exposed To Smoke? No [email or web address] Information no t available 03/19/2021 How Much Tobacco Do You Smoke? No [email or web address] Information not available 06/08/2023 Do You Use Sunscreen Routinely? Yes Information not available 10/13/2016 On What Date Was Tobacco Cessation Counseling Provided? 12/27/2024 [email or web address] Information not available 12/27/2024 How Many Years Have You Smoked Tobacco? 30 Information not available 07/18/2023 Do You Have Difficulty Walking Or Climbing Stairs? No Information not available 10/12/2016 Sex: Female Functional Status Question Answer Note LastModified by Organizat [employer] Details LastModified Time Do you use any illicit or recreational drugs? No Information not available 03/19/2021 Do you or have you ever used any other forms of tobacco or nicotine? Yes [email or web address] Information not available 03/19/2021 What is your level of alcohol consumption? Occasional Information not available 10/12/2016 Are you currently employed? No Information not available 10/12/2016 Do you have transportation difficulties? No [email or web address] Information not available 03/19/2021 Are you able to walk? YESWOREST [email or web address] Information not available 03/19/2021 Do you have difficulty doing errands alone? No Information not available 10/12/2016 Are you able to care for yourself? Yes [email or web address] Information n ot available 03/19/2021 What is your occupation? unemployed Information not available 10/12/2016 Do you have difficulty dressing or bathing? No Information not available 10/12/2016 Do you or have you ever used e-cigarettes or vape? Current user of electronic cigarettes vapes [email or web address] Information not available 05/31/2022 What is your exercise level? None Information not available 10/12/2016 Mental Status Question Answer Note LastModified by Organizat ion Details LastModified Time Do you feel stressed (tense, restless, nervous, or anxious, or unable to sleep at night)? [id number] [email or web address] Information not available 03/19/2021 Do you have [...] ntarter Not available 2016 13:32:52 Father Leukemia [email or web address] Not availabl e 06/08/2023 14:18:18 Mother Malignant lymphoma 47 ntarter Not available 2016 13:33:07 Brother Malignant tumor of pharynx ntarter Not available 2016 13:33:18 Brother Myocardial infarction 59 [email or web address] Not available 06/08 14:18:59 Medical History Condition [...] Immunizations Vaccine Type Date Status Note Provider Gaurang davis and Address Organization Details Recorded Time COVID-19, mRNA, LNP-S, PF, 100 mcg/0.5mL dose or 50 mcg/0.25mL dose 2 completed Jacqui Gregory null, [place] - [facility] 05/31/2022 09:43:15 COVID-19, mRNA, LNP-S, PF, 100 mcg/0.5mL dose or 50 mcg/0.25mL dose 1 completed Jacqui Gregory null, [place] - [facility] 05/31/2022 09:43:15 COVID-19, mRNA, LNP-S, PF, 100 mcg/0.5mL dose or 50 mcg/0.25mL dose 1 completed Jacqui Gregory [place] - [facility] 05/31/2022 09:43:15 COVID-19, mRNA, LNP-S, PF, 100 mcg/0.5mL dose or 50 mcg/0.25mL dose 1 completed Jacqui Gregory [place] - [facility] 05/31/2022 09:43:15 influenza, unspecified formulation 2 completed Not Available [facility] 07/18/2023 11:26:39 influenza, unspecified formulation 3 completed Not Available [facility] 07/18/2023 11:26:39 Past Encounters Encounter ID Performer Location Encounter Start Date Encounter Closed Date Diagnosis/Indication Diagnosis SNOMED-CT Code Diagnosis ICD10 Code Diagnosis Note [id number] THIAGO Lou [address] [address] 12/27/2024 10:59:21 12/27/2024 11:23:50 Mixed hyperlipidemia 455486967 E78.2 Long-term current use of drug therapy 548734267 Z79.899 chronic conditions are stable. gave refills. Acute otit is externa of right ear 7362992990 189376 H60.501 Congestion of nasal sinus 75532130 R09.81 [id number] Leonor Spring APRN [address] [place] [address] 12/31/2024 14:09:47 12/31/2024 15:08:27 Hyperglycemia due to type 2 diabetes mellitus 0130338448 10788 E11.65 Body mass index 30+ - obesity 312338120 Z68.34 Gastroesop hageal reflux disease without esophagitis 059968316 K21.9 Hyperlipidemia 67958849 E78.5 Hypertensive disorder 38 101911 I10 Former hea vy tobacco smoker 7018493646 41531 Z87.891 Cobalamin deficiency 190 965064 E53.8 Vitamin D deficiency 347 56266 E55.9 Chronic back pain 733471 002 G89.29 Medical re cords review 633357698 Z76.89 Obstructiv e sleep apnea syndrome 69337606 G47.33 Health Concerns Section Related Observation LastModified by Organization Detai ls LastModified Time None Recorded Concern Status LastModified by Organization Details LastModified Time None Recorded Payers Encounter Date Sequence Insurance Name Policy Number Policy Cook Covered Member ID Cook Member ID Guarantor Name 12/31/2024 1 [employer] [place] (MEDICA[place] HMO) Miri Hirsch [id number] Miri Hirsch Notes Date Note Type Note Provider Name and Address Organization Details Recorded Time 12/31/2024 text/html Miri presents for 3 month follow up on her type 2 diabetes. She is currently on Metformin 1,000 mg BID and Ozempic 1 mg weekly through PAP. Her last hgb a1c was 5.0%. Today it is 5.2%. No problems with hypoglycemia. States sugars average around 100. Retinavue from 10/20/2023 was negative for retinopathy. States she had eye exam at [facility] a few months ago. No h/o pancreatitis or medullary thyroid carcinoma. Diabetic complications: She is on Gabapentin for her back not diabetic neuropathy. No heart disease or stroke. She is disabled due to her back. She has had 2 back surgeries. She has been diagnosed with sleep apnea and is now wearing C-pap. I am her PCP. Specialists: pain specialist for her back Last mammogram 04/13/2024Last pap 11/18/2024Last colonoscopy 2021 - done at a clinic [facility]. Follow up recommended in 5 years.Former smoker. She smoked 1 ppd X 30 years. She quit 7 years ago.LDCT from 09/27/2024 showed calcified granulomas, but no lung nodules or masses. It incidentally showed calcified coronary disease so I referred her to a living supervisor. Chronic issues reviewed and stable. Leonor Spring, BEAUTY DIRECTOR [address], [place], [address], [place] - [facility] 12/31/2024 17:03:09 OBGyn Episode No OBEpisode recorded.
--- OUTSIDE RECORDS SUMMARY | 2025-01-03 10:11 | XMS_ITS | Continuity of Care Document ---
Author Organization [facility]ORY PROCESS MANAGER Address [address] [place] [address] Care Team Providers Care Tape Librarian Name Role Phone VERONICA MENDENHALL Primary Care Provider Assessment Encounter Date Assessment Date Assessment LastModified by Organization Details LastModified Time 11/15/2024 11/15/2024 Reproductive life plan discussed. Patient does not plan to have children in the future. Domestic abuse counseling done. Fliers for domestic abuse centers posted in patient waiting rooms and bathrooms. [email or web address] Not available 11/16/2024 23:44:55 Plan of Treatment Reminders Order Date Submit Date Provider Last Modified By Organization Details Last Modified Time Details Appointments ESTABLISH ED PT 30 2024 10:15A M Leonor Spring APRN Not available Not available Not available Lab cytology report, thin prep, smear or scraping, cervical or vaginal 2024 025 [place] [facility], [address] , [place], [address], 11/21/2024 08:20:55 Referral None recorded. Procedures None recorded. Surgeries None recorded. Imaging MAMMO, screening , bilateral 2024 025 [facility] (Central Scheduling), [address] [place] [address] [place], [address], 12/27/2024 14:33:37 Medication Orders None recorded. Patient TargetsNo targets recorded. Patient Instructions Encounter Date Encounter Id Patient Instructions Last Modified By Organization Details Last Modified Time 11/15/2024 [id number] learning about healthy weight [email or web address] Not available 11/15/2024 14:29:56 body mass index: care instructions Not available 11/15/2024 14:29:56 medical record request* - seeking colonoscopy report/results Not available 12/12/2024 16:02:53 Encourage Self Breast Exam Encourage Healthy eating/regular physical activity Encourage adequate calcium intake/Vitamin D Encourage routine care with PCP Encourage smoking cessation [email or web address] Not available 11/16/2024 23:49:20 We will call abnormal test results in 7-10 days. Patient is advised that normal test results will be retrievable through [employer] Patient Portal and that they will be notified of the availability of normal results from [employer] by phone call, text or email. [email or web address] Not available 11/16/2024 23:49:25 Reason for Referral None Reported. Problems Name Problem SNOMED Code Status Onset Date Resolution Date Notes Provider Name and Address Organization Details Recorded Time Menopausal syndrome 422694797 Active 2017 Devora Cast [facility], [place] - [facility] 8 08:40:24 Tobacco user 228574649 Active 2017 [facility] Care Managemen t [address], [place], [address], [place] - [facility] 8 10:49:00 Body mass index 30+ - obesity 137677203 Active 2019 Lupe Cardona, VIVI [address], [place], [address], [place] - [facility] 5 14:29:49 Cervical intraepithe lial neoplasia grade 1 474143338 Active 2019 Lupe Cardona APRN [address], [place], [address], [place] [facility] 0 15:10:38 Body mass index 40+ - severely obese 220292957 Completed 202006/08/2023 Lupe Cardona APRN [address], [place], [address], [place] - [facility] 3 14:30:36 Cellulitis of skin 862981034 Completed 202106/08/2023 Lupe Cardona, SLOT MANAGER [address], [place], [address], [place] [facility] 3 14:30:30 Electronic cigarette user 743526936 Active 2022 Lupe Cardona, SLOT MANAGER [address], [place], [address], [place] [facility] 3 13:14:56 Type 2 diabetes mellitus 61158663 Active 2023 Vijaya Michelle null, [place] - [facility] 4 11:57:13 Sleep apnea 85709431 Active 2024 Jacqui Bri null, [place] - [facility] 5 13:49:33 Carpal tunnel syndrome 63946525 Active 2016 Devora Segun null, [place] - [facility] 7 13:23:42 Obstructive sleep apnea syndrome 25352121 Active 2024 Leonor Spring, SLOT MANAGER [address], [place], [address], [place] [facility] 5 14:59:10 Lumbago with sciatica 741781774 Active 2016 Devora Segun null, [place] - [facility] 7 13:24:02 Degeneratio n of thoracic interverteb ral disc 98101910 Active 2016 Devora Segun null, [place] - [facility] 7 13:24:36 Hypertensiv e disorder 30886375 Active 2016 Devora Segun null[place] - [facility] 7 08:48:17 Depressive disorder 37161972 Active 2016 Devora Segun null, [place] - [facility] 7 08:48:29 Anxiety 90134980 Active 2016 Devora Segun null, [place] - [facility] 7 08:48:35 Cervicovagi nal cytology: Low grade squamous intraepithe lial lesion 306167872 Completed 201606/08/2023 Lupe Cardona, SLOT MANAGER [address], [place], [address], [place] [facility] 14:30:21 Problem Notes None recorded. Procedures Surgical History Date Name Laterality Status Provider Name and Address Organization Details Recorded Time 01/01/20 Negative Microalbumin completed Vijaya Michelle [place] - [facility] 12/31/2024 14:53:19 01/01/20 25 A1C level 6.9 and below completed Vijaya Michelle [place] - [facility] 12/31/2024 14:54:51 11/16/19 Date of Last Pap Smear completed Lupe Cardona APRN [address], [place], [address], [place] - [facility] 11/15/2024 14:31:02 09/12/19 25 A1C level 6.9 and below completed Vijaya Michelle [place] - [facility] 09/11/2024 11:21:08 04/13/20 24 Date of Last Mammogram completed Lupe Cardona APRN [address], [place], [address], [place] - [facility] 11/15/2024 14:30:15 04/13/20 24 Most Recent Mammogram completed Lupe Cardona APRN [address], [place], [address], [place] - [facility] 11/15/2024 14:30:34 01/25/20 24 A1C level 6.9 and below completed Vijaya Michelle [place] - [facility] 01/25/2024 12:01:23 10/20/19 24 A1C level 6.9 and below completed Cindi Cline [place] - [facility] 10/20/2023 13:38:27 07/18/19 24 Positive Microalbumin completed Vijaya Michelle [place] - [facility] 07/18/2023 11:48:29 07/18/19 24 A1C level 6.9 and below completed Vijaya Michelle [place] - [facility] 07/18/2023 11:51:13 01/04/20 23 Date of Last Colonoscopy completed Lupe Cardona APRN [address], [place], [address], [place] - [facility] 07/29/2023 15:03:47 08/21/19 Back Surgery completed Jacqui Gregory [place] - [facility] 05/31/2022 09:51:04 05/14/20 20 Colposcopy completed Beth Gomes [place] - [facility] 05/21/2020 15:13:31 05/13/20 cold knife cone biopsy of cervix completed Lara Landry DO [address], [place], [address], [place] [facility] 05/25/2020 19:09:44 04/10/20 20 Colposcopy completed uLpe Cardona APRN [address], [place], [address], [place] [facility] 04/10/2020 09:31:43 04/10/20 Colposcopy completed Lupe Cardona APRN [address], [place], [address], [place] [facility] 04/14/2020 15:10:29 06/05/20 19 Back Surgery completed Jacqui Gregory [place] - [facility] 03/12/2020 13:24:27 01/17/20 19 Colposcopy completed Lara Landry DO [address], [place], [address], [place] [facility] 01/17/2019 02:20:45 12/09/19 18 Colposcopy completed Lupe Cardona APRN [address], [place], [address], [place] [facility] 12/08/2017 11:26:24 11/02/19 17 Colposcopy completed Lupe Cardona APRN [address], [place], [address], [place] [facility] 11/01/2016 11:14:18 01/07/20 [...] Disconti nued on: 11/02/19 15 4:00PM;U ser: armondisa; Est. Completi on: 06/12/20 13;Indic ation: Osteoart hritis - (88.7773 02);Prin angelito: 03/14/20 13 Not Available Not Available [...] completed Not Available Not Available Not Available [place] 10 mg-325 mg tablet take 1 tablet by oral route every 6 hours as needed for pain 10/13 completed [place] 10-325 mg oral tablet;R ecorded Status: Recorded on: 11/02/19 15 4:00PM;U ser: [email or web address] Not Available Not Available Not Available Prempro [...] Not Available Not Available Not Available [email or web address] layssa 8 mg-naloxo ne 2 mg sublingua l [...] height Body mass index (BMI) Body weight Systolic And Diastolic Provider Name and Address Organization Details Last Updated DateTime 11/15/2024 167.64 cm 33.7 kg/m2 47910.81 g 126/74 mm[Hg] Jacqui Gregory [place] - [facility] 11/15/2024 14:02:11 Social History Question Answer Notes LastModified by Organizat ion Details LastModified Time Tobacco Smoking Status Former Smoker Jacqui gaines, [place] - [facility] 11/15/2024 13:52:39 Do You [...] COVID-19 While That Case Was Ill? No [email or web address] Information not available 03/19/2021 In The 14 Days Before Symptom Onset, Have You Had Close Contact With A Person Who Is Under Investigation For COVID-19 While That Person Was Ill? No Information not available 03/19/2021 Have You Been To An Area Known To Be High Risk For COVID-19? No [email or web address] Information not available 03/19/2021 Are You Deaf Or Do You Have Serious Difficulty Hearing? No Information not available 10/12/2016 What Type Of Diet Are You Following? REGULAR Information not available 10/12/2016 Which Illicit Or Recreational Drugs Have You Used? Denies Information not available 10/12/2016 Have You Processed Blood Or Body Fluids From An Ebola Virus Disease Patient Without Appropriate PPE? No [email or web address] Information not available 03/19/2021 Do You Reside In Or Have You Traveled To An Area Where Ebola Virus Transmission Is Active? No [email or web address] Information not available 03/19/2021 What Is The Highest Grade Or Level Of School You Have Completed Or The Highest Degree You Have Received? [id number] [email or web address] Information not available 03/19/2021 Have There Been Any Changes To Your Family Or Social Situation? No [email or web address] Information no t available 03/19/2021 What Is The Fluoride Status Of Your Home? Unknown [email or web address] Information not available 03/19/2021 When Did You Quit Smoking? 1-5yearssinc elastcigaret te [email or web address] Information not available 05/31/2022 Have You Recently Or Are You Planning To Travel To An Area With Zika Virus? No Information not available 03/19/2021 Live Alone Or With Others? With Others Information not available 10/12/2016 Do You Have A Medical Power Of Hands Assembler? No [email or web address] Information not available 03/19/2021 What Was The Date Of Your Most Recent Tobacco Screening? 12/27/2024 [email or web address] Information not available 12/27/2024 How Many Children Do You Have? 0 Information not available 10/12/2016 What Is Your Current Pack Years? 30ormorepack years Information not available 07/18/2023 Performs Monthly Self-breast Exam? Yes Sometimes Information no t available 10/13/2016 Do You Use Protection During Sex? No [email or web address] Information not available 06/08/2023 Do You Use Protection Against STDs? No [email or web address] Information not available 06/08/2023 What Is Your Relationship Status? Information not available 11/15/2024 Seat Belts Used Routinely Yes Information not available 10/13/2016 Are You Sexually Active? Yes Information not available 10/12/2016 Do You Have Smoke And Carbon Monoxide Detectors In Your Home? Yes [email or web address] Information not available 03/19/2021 At What Age Did You Start Smoking Tobacco? 19 Information not available 07/18/2023 Are You Passively Exposed To Smoke? No [email or web address] Information no t available 03/19/2021 How Much Tobacco Do You Smoke? No [email or web address] Information not available 06/08/2023 Do You Use Sunscreen Routinely? Yes Information not available 10/13/2016 On What Date Was Tobacco Cessation Counseling Provided? 12/27/2024 [email or web address] Information not available 12/27/2024 How Many Years [...] other forms of tobacco or nicotine? Yes [email or web address] Information not available 03/19/2021 What is your level of alcohol consumption? Occasional Information not available 10/12/2016 Are you currently employed? No Information not available 10/12/2016 Do you have transportation difficulties? No [email or web address] Information not available 03/19/2021 Are you able to walk? YESWOREST [email or web address] Information not available 03/19/2021 Do you have difficulty doing errands alone? No Information not available 10/12/2016 Are you able to care for yourself? Yes Information n ot available 03/19/2021 What is your occupation? unemployed Information not available 10/12/2016 Do you have difficulty dressing or bathing? No Information not available 10/12/2016 Do you or have you ever used e-cigarettes or vape? Current user of electronic cigarettes vapes [email or web address] Information not available 05/31/2022 What is your exercise level? None Information not available 10/12/2016 Mental Status Question Answer Note LastModified by Organizat ion Details LastModified Time Do you feel stressed (tense, restless, nervous, or anxious, or unable to sleep at night)? [id number] [email or web address] Information not available 03/19/2021 Do you have [...] ntarter Not available 2016 13:32:52 Father Leukemia [email or web address] Not availabl e 06/08/2023 14:18:18 Mother Malignant lymphoma 47 ntarter Not available 2016 13:33:07 Brother Malignant tumor of pharynx ntarter Not available 2016 13:33:18 Brother Myocardial infarction 59 [email or web address] Not available 06/08 14:18:59 Medical History Condition [...] or 50 mcg/0.25mL dose 2 completed Jacqui gaines, [place] - [facility] 05/31/2022 09:43:15 COVID-19, mRNA, LNP-S, PF, 100 mcg/0.5mL dose or 50 mcg/0.25mL dose 1 completed Jacqui gaines, [place] - [facility] 05/31/2022 09:43:15 COVID-19, mRNA, LNP-S, PF, 100 mcg/0.5mL dose or 50 mcg/0.25mL dose 1 completed Jacqui gaines, [place] - [facility] 05/31/2022 09:43:15 COVID-19, mRNA, LNP-S, PF, 100 mcg/0.5mL dose or 50 mcg/0.25mL dose 1 completed Jacqui gaines, [place] - [facility] 05/31/2022 09:43:15 influenza, unspecified formulation 2 completed Not Available [facility] 07/18/2023 11:26:39 influenza, unspecified formulation 3 completed Not Available [facility] 07/18/2023 11:26:39 Past Encounters Encounter ID Performer Location Encounter Start Date Encounter Closed Date Diagnosis/Indication Diagnosis SNOMED-CT Code Diagnosis ICD10 Code Diagnosis Note [id number] VIVI Carnes REGULATORY PROCESS MANAGER [address] [facility] [place] [address] 11/15/2024 13:36:24 11/15/2024 14:28:22 Routine gynecologic examination done 4711862308 9101 Z01.419 Depression screening 171 481144 Z13.31 PHQ-9 completed today. Diet education 45954778 Z71.3 Encourage healthy eating/dec reased fats, sugars, fried foods Counseling 197869189 Z71 .82 Exercise counselangella g. Patient encouraged to exercise 30 minutes 5 days a week. Examinatio n of blood pressure 608767701 Z01.30 Screening for malignant neoplasm of cervix 752556536 Z12.4 Screening for malignant neoplasm of breast 690508606 Z12.31 Body mass index 30+ - obesity 613241450 Z68.33 Obesity 333995639 E66.9 Depressive disorder 3548 9007 F33.8 Hypertensive disorder 38 338760 I10 Screening for malignant neoplasm of colon 260698018 Z12.11 Electronic cigarette user 086542406 Z72.89 Health Concerns Section Related Observation LastModified by Organization Detai ls LastModified Time None Recorded Concern Status LastModified by Organization Details LastModified Time None Recorded Payers Encounter Date Sequence Insurance Name Policy Number Policy Cook Covered Member ID Cook Member ID Guarantor Name 11/15/[address] [facility] (MEDICAID HMO) Miri Hirsch [id number] Miri Hirsch Notes Date Note Type Note Provider Name and Address Organization Details Recorded Time 11/15/2024 text/html Annual - MOBRepo rted bypatient.History:[place] st annual exam: 06/08/23 Current Contraception:Monoga mous relationship; Postmenopausal Preventive measures:Encourage self breast examination; Encourage regular exercise; Encourage no tobacco use; Encourage regular mammograms starting age 40; Followed with yearly pap smears; Mammogram performed within the past year; Up to date on colonoscopy screening; All immunization are currentNotes:Miri rto for AWE. She is doing well and denies obstetrics gynecology md concerns. Lupe Cardona, SLOT MANAGER [address], [place], [address], [facility] - [facility] 11/16/2024 23:50:07 OBGyn Episode No OBEpisode recorded.
--- OUTSIDE RECORDS SUMMARY | 2025-01-03 10:11 | XMS_ITS | Continuity of Care Document ---
Author Organization [place] [facility] [place] [facility] [place] [facility] Address [address] [facility] [address] [place] [phone] Assessment Encounter Date Assessment Date Assessment LastModified by Organization Details LastModified Time 12/19/2024 12/19/2024 Reviewed cath note with patient. Still need to consider cardiac MRI for the abnormal findings in the right atria. Found to have normal cors with normal pressures. Full findings listed below. Has abnormal finding on echo. There is an echodense structure in the right atria. Would recommend that she have cardiac MRI to further asses. States she is using her CPAP nightly for about a month now. Patient Education was printed, I have reviewed the Past Medical, Family, and Social Histories along with ROS and all orders in today's record, and have noted any changes. Medications, charts and records reviewed in full today. CATH12/12/2024-N ormal coronary arteries. Normal left ventricular systolic function. Mild elevation in left ventricular end-diastolic pressure and pulmonary capillary wedge pressure. Respiratory variation pressures which could suggest possible obstructive sleep apnea. Normal pulmonary artery pressure, pulmonary artery saturation, cardiac output and index. LAST ECHO:11/26/2024 Mild left ventricular chamber dilation [...] file. Plan: Recommend aspirin 81 mg daily Set up MRI of the heart given the abnormality in the right atrium seen on echocardiogram Monitor blood pressure and heart rate Blood work as per primary care Follow-up in Cardiology Clinic 6 weeks -Continue other current medications. -Continue aggressive risk factor modification. -Recommend LDL less than 100. -Encouraged regular exercise and activity. Not available 12/19/2024 13:26:38 Plan of Treatment Reminders Order Date Submit Date Provider Last Modified By Organization Details Last Modified Time Details Appointments OV EST 30 2024 01:30P Adarsh KEYES NP Not available Not available Not available Lab None recorded. Referral None recorded. Procedures None recorded. Surgeries None recorded. Imaging MRI, heart function and morpholog y, w/wo contrast [address] (Centralized Scheduling)[facility] [place], [address], 12/26/2024 07:25:18 Medication Orders None recorded. Patient TargetsNo targets recorded. Patient InstructionsNo instructions recorded. Reason for Referral None Reported. Results Created Date Observation Date Name Description Value Unit Range Abnormal Flag Note LastModifiedBy Organization Detail LastModifiedTime 12/02/1912/01/2024 - [address] rd SPECT wm/ef bilingual legal assistant [facility] Name: ELIAZAR ESQUEDA [address] [place] [address] Phys: Jp MELÉNDEZ, [place] [address] : 1969 Age: 54 Sex: F Acct: [id number] Loc: SHENA PHONE #: Exam Date: 2024 Status : DEP CLI FAX #: Rad# [id number] Unit# [id number] Admit Date: 2024 EXAMS: CPT CODE: [id number] 420 MYOCAR D SPECT WM/EF ASSISTANT PROFESSOR OF ANTHROPOLOGY 51829 Reason for study: Dyspne a Patien t [...] MD PAGE 1 Signed Report (ROSA NUED) [place] [facility] Name: ELIAZAR ESQUEDA [facility] Phys: [place] [address] : 1969 Age: 54 Sex: F Acct: [id number] Loc: SHENA PHONE #: [phone] Exam Date: 2024 Status : DEP CLI FAX #: Rad# [id number] Unit# [id number] Admit Date: 2024 EXAMS: CPT CODE: [id number] 420 MYOCAR D SPECT WM/EF ASSISTANT PROFESSOR OF ANTHROPOLOGY 30768 CC: Linh Trammell MD; Leonor Lucio (Rioon ald) Saw TRINIDAD Dictat ed Date/T mark: 2024 (0939) Techno logist : THERESA ROSENTHAL BS, SALES MANAGEMENT INTERN Transc ribed Date/T mark: 2024 (0939) Transc riptio nist: DR.LOH LINDA Ni onic Signat ure Date/T mark: 2024 (0939) Printe d Date/T mark: 2024 (0941) BATCH NO: N/A PAGE 2 Signed Report CC'ed Logic: Orderi ng Provid er: JP MELTON Attend ing Provid er: JP MELTON Referr ing Provid er: JP MELTON Consul ting Provid er: SAW ESCAMILLA [address] [place], [address], 12/04/2024 10:14:22 12/03/19 25 12/02/2024 - ECHO w/spe c/col or flow [facility] Name: ELIAZAR ESQUEDA [address] [place] [address] Drive Phys: [place] [address] : 1969 Age: 54 Sex: F Acct: [id number] Loc: SHENA PHONE #: Exam Date: 2024 Status : DEP CLI FAX #: Rad# [id number] Unit# [id number] Admit Date: 2024 EXAMS: CPT CODE: [id number] ECHO W/SPEC /COLOR FLOW 88925 Reason for study: Dyspne a Left ventri cular diasto le: 5.8 Left ventri cular systol e: 4.0 Septal wall thickn ess: 0.8 Academic Physician ior wall thickn ess: 0.8 Right ventri [...] fibro- elasto ma/thr ombus from the pulmon egrri vein. 4. Normal right ventri cular size [...] MD PAGE 1 Signed Report (ROSA NUED) [facility] [facility] Name: ELIAZAR ESQUEDA [facility] Phys: Jp MELÉNDEZ, [place] [address] : 1969 Age: 54 Sex: F Acct: [id number] Loc: G.KS PHONE #: [phone] Exam Date: 2024 Status : DEP CLI FAX #: Rad# [id number] Unit# [id number] Admit Date: 2024 EXAMS: CPT CODE: [id number] ECHO W/SPEC /COLOR FLOW 01513 CC: Linh Trammell MD; Leonor Lucio (Beau vickers) Saw TRINIDAD Dictat ed Date/T mark: 2024 (104) Techno logist : YONI LEACH TER Transc ribed Date/T mark: 2024 (104) Transc riptio nist: DR.LOH LINDA Ni onic Signat ure Date/T mark: 2024 (1044) Printe d Date/T mark: 2024 (1047) BATCH NO: N/A PAGE 2 Signed Report CC'ed Logic: Orderi ng Provid er: JP MELTON Attend ing Provid er: JP MELTON Referr ing Provid er: JP MELTON Consul ting Provid er: SAW [facility]ILLA [facility] [address], [address], 12/04/2024 10:14:23 Result Notes None recorded. Problems Name Problem SNOMED Code Status Onset Date Resolution Date Notes Provider Name and Address Organization Details Recorded Time Obstructive sleep apnea syndrome 94485403 Active 2024 Linh Trammell MD [address] [place] [address],[address], [phone], [facility] [place] 5 10:36:36 Calcification of coronary artery 503734958 Active 2024 Linh Trammell MD [address] [place] [address],Hailee te [address] [place] [address], [phone], [facility] - [place] [facility] & [place] 5 10:36:45 Prediabetes 866160700 Active 2024 Linh Trammell MD [address] [place] [address],Hailee te [address] [place] [address], [phone], [place] [facility] [place] [facility] [place] 5 10:36:52 Mixed hyperlipidemia 545009492 Active 2024 Linh Trammell MD [address] [place] [address],[address], [address], [place] [facility] [place] [facility] [place] 5 10:37:02 Essential hypertension 60318915 Active 2024 Linh Trammell MD [address] [place] [address],[facility] te [address] [place] [address], [phone], [place] 5 10:37:10 Edema of lower extremity 337562503 Active 2024 Linh Trammell MD [address] [place] [address],Hailee [address], [address], [place] [facility] 5 10:37:16 Diastolic dysfunction 2968446 Active 2024 Linh Trammell MD [address] [place] [address],[address], [address], [place] [facility] [place] 5 10:38:03 Angina pectoris 831897734 Active 2024 Linh Trammell MD [address] [place] [address],Hailee te [address] [place] [address], [phone], [place] [facility] 5 08:13:27 Dyspnea on exertion 09794308 Active 2024 Linh Trammell MD [address] [place] [address],Hailee te [address] [place] [address], [address], [place] [facility] 5 08:14:12 Abnormal results of cardiovascular function studies 656137744 Active 2024 Linh Trammell MD [address] [place] [address],Hailee te [address] [place] [address], [address], [place] [facility] [place] 5 09:36:25 Problem Notes None recorded. Medical [...] Details Last Updated DateTime 5 165.1 cm 35.6 kg/m2 16288.7 7 g 96 % 96 % 81 /min 140/90 mm[Hg] Bernice kasper [place] 5 13:00:16 Social History None recorded. Functional Status Question Answer Note LastModified by Organizat ion Details LastModified Time Do you or have you ever used any other forms of tobacco or nicotine? Yes [email or web address] Information not available 10/24/2024 Do you or have you ever used e-cigarettes or vape? Current user of electronic cigarettes [email or web address] Information not available 10/24/2024 Mental Status None recorded. Family History Nothing Reported. Medical History No medical history recorded. Gynecological HistoryNo gynecological history recorded. Obstetrics History GPAL:G 0 P 0 0 0 0 Past Encounters Encounter ID Performer Location Encounter Start Date Encounter Closed Date Diagnosis/Indication Diagnosis SNOMED-CT Code Diagnosis ICD10 Code Diagnosis Note [id number] Linh Trammell MD [address] [place] [phone] 11/21/2024 08:37:40 11/21/2024 09:11:15 Dyspnea 459746954 R06.02 Obstructiv e sleep apnea syndrome 01346529 G47.33 Patient states she is doing well w/ Cpap machine Calcificat ion of coronary artery 379224978 I25.10 Prediabetes 507285377 R7 3.03 Mixed hyperlipidemia 267 033075 E78.2 Essential hypertension 58473416 I10 Edema of l ower extremity 220228019 R60.0 Diastolic dysfunction 35 81116 I51.89 [id number] Linh Trammell MD [address] [place] [phone] 12/05/2024 07:49:23 12/05/2024 08:20:05 Dyspnea 427720513 R06.02 Obstructiv e sleep apnea syndrome 40080529 G47.33 Patient states she is doing well w/ Cpap machine. Still with shortness of breath and fatigue Calcificat ion of coronary artery 410627778 I25.10 Prediabetes 376964319 R7 3.03 Mixed hyperlipidemia 267 212886 E78.2 Essential hypertension 15434343 I10 Edema of l ower extremity 950124155 R60.0 Diastolic dysfunction 35 51617 I51.89 Angina pectoris 96833426 0 I20.9 Dyspnea on exertion 6084 5006 R06.09 Abnormal r esults of cardiovascular function studies 067224636 R94.30 [id number] Linh Trammell MD [address] [place] [phone] 12/19/2024 12:40:49 12/19/2024 13:29:41 Obstructive sleep apnea syndrome 81652726 G47.33 Patient states she is doing well w/ Cpap machine. Still with shortness of breath and fatigue Calcificat ion of coronary artery 378293700 I25.10 Prediabetes 559487261 R7 3.03 Mixed hyperlipidemia 267 928522 E78.2 Essential hypertension 35721569 I10 Edema of l ower extremity 203537972 R60.0 Diastolic dysfunction 35 53877 I51.89 Abnormal r esults of cardiovascular function studies 521113585 R94.30 Abnormal echodense structure in the right atria Health Concerns Section Related Observation LastModified by Organization Detai ls LastModified Time None Recorded Concern Status LastModified by Organization Details LastModified Time None Recorded Payers Encounter Date Sequence Insurance Name Policy Number Policy Cook Covered Member ID Cook Member ID Guarantor Name 12/19/2024 1 [facility] (MEDICAID HMO) Miri Esqueda [id number] Miri Esqueda Notes Date Note Type Note Provider Name and Address Organization Details Recorded Time 12/19/2024 text/html Patient coming in today after having recent right and left heart cath. States that the right groin is free of complications. MARTHA KEYES NP [address] [facility],[address], [place], [address], [facility] [place] 12/19/2024 13:27:55 OBGyn Episode No OBEpisode recorded.
--- OUTSIDE RECORDS SUMMARY | 2025-01-03 10:11 | XMS_ITS | Data Portability ---
Author Organization [facility] Address [address] [place] [address] Care Team Providers Care Welt Treater Name Role Phone VERONICA MENDENHALL Primary Care Provider Assessment Encounter Date Assessment Date Assessment LastModified by Organization Details LastModified Time 11/15/2024 11/15/2024 Reproductive life plan discussed. Patient does not plan to have children in the future. Domestic abuse counseling done. Fliers for domestic abuse centers posted in patient waiting rooms and bathrooms. [email or web address] Not available 11/16/2024 23:44:55 Plan of Treatment Reminders Order Date Submit Date Provider Last Modified By Organization Details Last Modified Time Details Appointments ESTABLISH ED PT 30 2024 10:15A M Leonor Spring APRN Not available Not available Not available Lab HbA1c (hemoglob in A1c), blood [address] , [place], [address], 12/31/2024 15:16:40 glucose, fingersti ck, blood [address] [place], [address], 12/31/2024 15:16:40 microalbu min/creat inine, mass ratio, urine [address] [place] [address] [place], [address], 12/31/2024 15:16:40 cytology report, thin prep, smear or scraping, cervical or vaginal 2024 025 [facility], [address], [address], [place], [address], 11/21/2024 08:20:55 lipid panel, serum 2024 025 [facility], [address], [address], [place], [address], 09/12/2024 08:28:15 CMP, serum or plasma 2024 025 [facility], [address], [address], [place], [address], 09/12/2024 08:28:14 TSH + free T4, serum 2024 025 [facility], [address], [place] [address], [place], [address], 09/12/2024 08:28:13 vitamin D, 25-hydrox y, total, serum 2024 025 [facility], [address], [place], [place], [address], 09/12/2024 08:28:16 HbA1c (hemoglob in A1c), blood 2024 025 [facility], [address] [place] [address] , [place], [address], 09/11/2024 11:33:32 glucose, fingersti ck, blood 2024 025 [facility], [address] [place] [address] , [place], [address], 09/11/2024 11:33:32 vitamin B12, serum 2024 025 [facility], [address], [place] [address], [place], [address], 09/12/2024 08:28:16 lipid panel, serum 2023 024 [facility], [address], [address], [place], [address], 01/26/2024 07:15:10 CMP, serum or plasma 2023 024 [facility], [address], [place] [address], [place], [address], 01/26/2024 07:15:09 vitamin D, 25-hydrox y, total, serum 2023 024 [facility], [address], [place] [address], [place], [address], 01/26/2024 07:15:11 HbA1c (hemoglob in A1c), blood 2023 024 [facility], [address] [place] [address] , [place], [address], 01/25/2024 12:11:55 glucose, fingersti ck, blood 2023 024 [facility], [address] [place] [address] , [place], [address], 01/25/2024 12:11:56 vitamin B12, serum 2023 024 [facility], [address], [place] [address], [place], [address], 01/26/2024 07:15:11 Referral None recorded. Procedures None recorded. Surgeries None recorded. Imaging LDCT, chest, for lung cancer screening 2024 025 [facility], [address] [facility], [place], [address], 12/31/2024 17:00:39 MAMMO, screening , bilateral 2024 025 [email or web address] [facility] ([facility]), [address] [place] [address], [place], [address], 12/27/2024 14:33:37 LDCT, chest, for lung cancer screening - approved by [facility] 2024 025 [facility], [address] [place] [address], [address], 09/27/2024 07:52:13 Medication Orders neomycin- polymyxin -hydrocor t 3.5 mg-10,000 unit/mL-1 % ear drops,jacqueline p [address], [address], 12/27/2024 11:22:04 atorvasta tin 20 mg tablet [address], [address], 12/27/2024 11:22:04 cefdinir 300 mg capsule [address], [address], 12/27/2024 11:22:02 prednison e 5 mg tablet [address], [address], 12/27/2024 11:22:02 levocetir izine 5 mg tablet [address] [facility], [address] [place] [address], [address], 01/25/2024 12:11:54 meloxicam [address] [facility], [address] [place] [address], [address], 01/25/2024 12:11:54 Zithromax Z-Saad [address] [facility], [address] [place] [address], [address], 11/15/2024 16:32:59 metformin 1,[address] [facility], [address] [place] [address], [address], 01/25/2024 12:11:52 Alcohol Wipes 2023 [facility], [address] [place] [address], [address], 01/25/2024 12:17:54 Patient TargetsNo targets recorded. Patient Instructions Encounter Date Encounter Id Patient Instructions Last Modified By Organization Details Last Modified Time 01/25/2024 [id number] high cholesterol : care instructions [email or web address] Not available 01/25/2024 12:11:50 albumin-creatini n e ratio: about this test rjessee Not available 01/25/2024 12:11:49 upper respirator y infection (cold): care instructions rjessee Not available 01/25/2024 12:11:50 body mass index: care instructions rjessee Not available 01/25/2024 12:11:49 learning about healthy weight rjessee Not available 01/25/2024 12:11:50 obesity educatio n information rjessee Not available 01/25/2024 12:11:49 Continue Metformin 1,000 mg twice a day. Continue Victoza 1.8 mg daily. Since the zapata has went up on this, I will try to get Ozempic through [employer] patient assistance program. Follow up with your other health care providers as scheduled. I would like to see you back in 3 months. [email or web address] Not available 01/25/2024 12:11:19 09/11/2024 [id number] medical record request* - please send me her last mammogram Not available 12/31/2024 11:37:55 high cholesterol : care instructions rjessee Not available 09/11/2024 11:33:32 albumin-creatini n e ratio: about this test rjee Not available 09/11/2024 11:33:32 body mass index: care instructions rjessee Not available 09/11/2024 11:33:32 learning about healthy weight rjee Not available 09/11/2024 11:33:33 obesity educatio n information rjee Not available 09/11/2024 11:33:32 Continue Metformin 1,000 mg twice a day. Continue Ozempic 1 mg weekly. Check your fasting sugar daily and bring meter in with you to each visit. Sent medical record request for your last mammogram. We will get you set up for low dose CT scan of your chest for lung cancer screening. We will call you with your lab results. Follow up with your other health care providers as scheduled. I would like to see you back in 3 months. [email or web address] Not available 09/11/2024 11:38:07 11/15/2024 [id number] learning about healthy weight [email or web address] Not available 11/15/2024 14:29:56 body mass index: care instructions [email or web address] Not available 11/15/2024 14:29:56 medical record request* - seeking colonoscopy report/results Not available 12/12/2024 16:02:53 Encourage Self Breast Exam Encourage Healthy eating/regular physical activity Encourage adequate calcium intake/Vitamin D Encourage routine care with PCP Encourage smoking cessation [email or web address] Not available 11/16/2024 23:49:20 We will call abnormal test results in 7-10 days. Patient is advised that normal test results will be retrievable through [facility] Patient Portal and that they will be notified of the availability of normal results from [facility] by phone call, text or email. [email or web address] Not available 11/16/2024 23:49:25 12/27/2024 [id number] CALL W CHANGES RTC OR ED IF SYMPTOMS CHANGE OR WORSEN KEEP NEXT INTERVAL CHECKUP [email or web address] Not available 12/27/2024 11:15:29 12/31/2024 [id number] medical record request* - please send me her last diabetic eye exam [email or web address] Not available 12/31/2024 16:50:25 high cholesterol : care instructions rjessee Not available 12/31/2024 15:16:40 sleep apnea: car e instructions rjessee Not available 12/31/2024 15:16:40 body mass index: care instructions rjessee Not available 12/31/2024 15:16:40 learning about healthy weight rjessee Not available 12/31/2024 15:16:40 obesity educatio n information rjessee Not available 12/31/2024 15:16:40 Continue Metformin 1,000 [...] to see you back in 3 months. [email or web address] Not available 12/31/2024 15:06:43 Reason for Referral None Reported. Results Created Date Observation Date Name Description Value Unit Range Abnormal Flag Note LastModifiedBy Organization Detail LastModifiedTime 01/25/20 24 01/26/2024 COMP. METAB OLIC PANEL (14) glucose 108 mg/dL 70-99 above high normal Not Available [facility] ([facility]) [address] [place], [address], 01/26/2024 07:15:09 01/25/20 24 01/26/2024 COMP. METAB OLIC PANEL (14) BUN 15 mg/dL 6-24 normal Not Available [facility] ([facility]) [address] [place], [address], 01/26/2024 07:15:09 01/25/20 24 01/26/2024 COMP. METAB OLIC PANEL (14) creatinine 0.73 mg/dL 0.57-1 .00 normal Not Available [facility] ([facility]) [address] [place], [address], 01/26/2024 07:15:09 01/25/20 24 01/26/2024 COMP. METAB OLIC PANEL (14) eGFR 99 mL/mi n/1.7 3 >59 normal Not Available [facility] ([facility]) [address] [place], [address], 01/26/2024 07:15:09 01/25/20 24 01/26/2024 COMP. METAB OLIC PANEL (14) BUN/creatini ne ratio 21 9-23 normal Not Available [facility] ([facility]) [address] [place], [address], 01/26/2024 07:15:09 01/25/20 24 01/26/2024 COMP. METAB OLIC PANEL (14) sodium 141 mmol/ L 134-14 4 normal Not Available [facility] ([facility]) [address] [place], [address], 01/26/2024 07:15:09 01/25/20 24 01/26/2024 COMP. METAB OLIC PANEL (14) potassium 4.9 mmol/ L 3.5-5. 2 normal Not Available [facility] ([place] [facility]) [address] [place], [address], 01/26/2024 07:15:09 01/25/20 24 01/26/2024 COMP. METAB OLIC PANEL (14) chloride 104 mmol/ L 96-106 normal Not Available [facility] ([place] [facility]) [address] [place], [address], 01/26/2024 07:15:09 01/25/20 24 01/26/2024 COMP. METAB OLIC PANEL (14) carbon dioxide, total 22 mmol/ L 20-29 normal Not Available [facility] ([place] [facility]) [address] [facility] [place], [address], 01/26/2024 07:15:09 01/25/20 24 01/26/2024 COMP. METAB OLIC PANEL (14) calcium 9.6 mg/dL 8.7-10 .2 normal Not Available [facility] ([place] [facility]) [address] [facility] [place], [address], 01/26/2024 07:15:09 01/25/20 24 01/26/2024 COMP. METAB OLIC PANEL (14) protein, total 6.8 g/dL 6.0-8. 5 normal Not Available [facility] ([facility]) [address] [place], [address], 01/26/2024 07:15:09 01/25/20 24 01/26/2024 COMP. METAB OLIC PANEL (14) albumin 4.4 g/dL 3.8-4. 9 normal Not Available [facility] ([facility]) [address] [place], [address], 01/26/2024 07:15:09 01/25/20 24 01/26/2024 COMP. METAB OLIC PANEL (14) globulin, total 2.4 g/dL 1.5-4. 5 Not Available [facility] ([facility]) [address] [place], [address], 01/26/2024 07:15:09 01/25/20 24 01/26/2024 COMP. METAB OLIC PANEL (14) bilirubin, total 0.4 mg/dL 0.0-1. 2 normal Not Available [facility] ([facility]) [address] [place], [address], 01/26/2024 07:15:09 01/25/20 24 01/26/2024 COMP. METAB OLIC PANEL (14) alkaline phosphatase 90 IU/L 44-121 normal Not Available [facility] ([facility]) [address] [place], [address], 01/26/2024 07:15:09 01/25/20 24 01/26/2024 COMP. METAB OLIC PANEL (14) AST (SGOT) 21 IU/L 0-40 normal Not Available [facility] ([facility]) [address] [place], [address], 01/26/2024 07:15:09 01/25/20 24 01/26/2024 COMP. METAB OLIC PANEL (14) ALT (SGPT) 18 IU/L 0-32 normal Not Available [facility] ([facility]) [address] [facility] [place], [address], 01/26/2024 07:15:09 01/25/20 24 01/26/2024 LIPID PANEL cholesterol, total 129 mg/dL 100-19 9 normal Not Available [facility] ([facility]) [address] [facility] [place], [address], 01/26/2024 07:15:10 01/25/20 24 01/26/2024 LIPID PANEL triglyceride s 134 mg/dL 0-149 normal Not Available [facility] ([facility]) [address] [place], [address], 01/26/2024 07:15:10 01/25/20 24 01/26/2024 LIPID PANEL HDL cholesterol 46 mg/dL >39 normal Not Available [facility] ([facility]) [address] [facility] [place], [address], 01/26/2024 07:15:10 01/25/20 24 01/26/2024 LIPID PANEL VLDL cholesterol adriana 23 mg/dL 5-40 Not Available [facility] ([facility]) [address] [place], [address], 01/26/2024 07:15:10 01/25/20 24 01/26/2024 LIPID PANEL LDL chol calc ([facility]) 60 mg/dL 0-99 Not Available [facility] ([facility]) [address] [facility] [place], [address], 01/26/2024 07:15:10 01/25/20 24 01/26/2024 LIPID PANEL LDL calc comment: ACADEMIC PROGRAM SPECIALIST Not Available [facility] ([facility]) [address] [place], [address], 01/26/2024 07:15:10 01/25/20 24 01/26/2024 VITAM IN D, 25-HY DROXY vitamin D, 25-hydroxy 52.1 NG/mL 30.0-1 00.0 Vitam in D defic iency has been defin ed by the Insti tute of Medic ine and an Endoc rine Socie ty pract ice guide line as a level of serum 25-OH vitam in D less than 20 ng/mL (1,2) . The Endoc rine Socie ty went on to furth er defin e vitam in D insuf ficie ncy as a level betwe en 21 and 29 ng/mL (2). 1. IOM (Inst itute of Medic ine). 2010. Dieta ry refer ence intak es for calci um and D. Shereen white [place]: The [facility] Press . 2. Jl sanford MF, Jayda lee [place], Betty off-F errfrancois i VALDIVIA, et al. Evalu ation , treat ment, and preve ntion of vitam in D defic iency : an Endoc rine Socie ty clini adriana pract ice guide line. JCEM. 2010; 96(7) :1911 -30. Not Available [facility] ([facility]) [address] [facility], [place], [address], 01/26/2024 07:15:11 01/25/20 24 01/26/2024 VITAM IN B12 vitamin B12 410 pg/mL 232-12 45 normal Not Available [facility] ([facility]) [address] [facility], [place], [address], 01/26/2024 07:15:11 01/25/20 24 01/25/2024 HbA1c (hemo globi n A1c), blood HbA1C 5.0 % Not Available [address] , [place], [address], 01/24/2024 14:35:21 01/25/20 24 01/25/2024 gluco se, finge rstic k, blood Blood Glucose: mg/dl 113 Not Available [place] [id number] [facility] , [place], [address], 01/24/2024 14:35:22 09/12/19 25 09/12/2024 TSH+F REE T4 TSH 0.825 uIU/m L 0.450- 4.500 normal Not Available [facility] ([facility]) [address] [place], [address], 09/12/2024 08:28:13 09/12/19 25 09/12/2024 TSH+F REE T4 T4,free(dire ct) 1.44 NG/dL 0.82-1 .77 normal Not Available [facility] ([facility]) [address] [place], [address], 09/12/2024 08:28:13 09/12/19 25 09/12/2024 COMP. METAB OLIC PANEL (14) glucose 90 mg/dL 70-99 normal Not Available [facility] ([facility]) [address] [place], [address], 09/12/2024 08:28:14 09/12/19 25 09/12/2024 COMP. METAB OLIC PANEL (14) BUN 9 mg/dL 6-24 normal Not Available [facility] ([facility]) [address] [place], [address], 09/12/2024 08:28:14 09/12/19 25 09/12/2024 COMP. METAB OLIC PANEL (14) creatinine 0.73 mg/dL 0.57-1 .00 normal Not Available [facility] ([facility]) [address] [place], [address], 09/12/2024 08:28:14 09/12/19 25 09/12/2024 COMP. METAB OLIC PANEL (14) eGFR 98 mL/mi n/1.7 3 >59 normal Not Available [facility] ([facility]) [address] [place], [address], 09/12/2024 08:28:14 09/12/19 25 09/12/2024 COMP. METAB OLIC PANEL (14) BUN/creatini ne ratio 12 9-23 normal Not Available [facility] ([facility]) [address] [place], [address], 09/12/2024 08:28:14 09/12/19 25 09/12/2024 COMP. METAB OLIC PANEL (14) sodium 142 mmol/ L 134-14 4 normal Not Available [facility] ([facility]) [address] [place], [address], 09/12/2024 08:28:14 09/12/19 25 09/12/2024 COMP. METAB OLIC PANEL (14) potassium 5.0 mmol/ L 3.5-5. 2 normal Not Available [facility] ([facility]) [address] [place], [address], 09/12/2024 08:28:14 09/12/19 25 09/12/2024 COMP. METAB OLIC PANEL (14) chloride 104 mmol/ L 96-106 normal Not Available [facility] ([facility]) [address] [facility] [place], [address], 09/12/2024 08:28:14 09/12/19 25 09/12/2024 COMP. METAB OLIC PANEL (14) carbon dioxide, total 22 mmol/ L 20-29 normal Not Available [facility] ([facility]) [address] [facility] [place], [address], 09/12/2024 08:28:14 09/12/19 25 09/12/2024 COMP. METAB OLIC PANEL (14) calcium 9.7 mg/dL 8.7-10 .2 normal Not Available [facility] ([facility]) [address] [facility] [place], [address], 09/12/2024 08:28:14 09/12/19 25 09/12/2024 COMP. METAB OLIC PANEL (14) protein, total 6.6 g/dL 6.0-8. 5 normal Not Available [facility] ([facility]) [address] [facility] [place], [address], 09/12/2024 08:28:14 09/12/19 25 09/12/2024 COMP. METAB OLIC PANEL (14) albumin 4.2 g/dL 3.8-4. 9 normal Not Available [facility] ([facility]) [address] [facility] [place], [address], 09/12/2024 08:28:14 09/12/19 25 09/12/2024 COMP. METAB OLIC PANEL (14) globulin, total 2.4 g/dL 1.5-4. 5 Not Available [facility] ([facility]) [address] [facility] [place], [address], 09/12/2024 08:28:14 09/12/19 25 09/12/2024 COMP. METAB OLIC PANEL (14) bilirubin, total 0.4 mg/dL 0.0-1. 2 normal Not Available [facility] ([facility]) [address] [facility] [place], [address], 09/12/2024 08:28:14 09/12/19 25 09/12/2024 COMP. METAB OLIC PANEL (14) alkaline phosphatase 97 IU/L 44-121 normal Not Available [facility] ([facility]) [address] [facility], [address], 09/12/2024 08:28:14 09/12/19 25 09/12/2024 COMP. METAB OLIC PANEL (14) AST (SGOT) 21 IU/L 0-40 normal Not Available [facility] ([facility]) [address] [facility], [address], 09/12/2024 08:28:14 09/12/19 25 09/12/2024 COMP. METAB OLIC PANEL (14) ALT (SGPT) 15 IU/L 0-32 normal Not Available [facility] ([facility]) [address] [facility], [place], [address], 09/12/2024 08:28:14 09/12/19 25 09/12/2024 LIPID PANEL cholesterol, total 125 mg/dL 100-19 9 normal Not Available [facility] ([facility]) [address] [place], [address], 09/12/2024 08:28:15 09/12/19 25 09/12/2024 LIPID PANEL triglyceride s 105 mg/dL 0-149 normal Not Available [facility] ([facility]) [address] [place], [address], 09/12/2024 08:28:15 09/12/19 25 09/12/2024 LIPID PANEL HDL cholesterol 55 mg/dL >39 normal Not Available [facility] ([facility]) [address] [place], [address], 09/12/2024 08:28:15 09/12/19 25 09/12/2024 LIPID PANEL VLDL cholesterol adriana 19 mg/dL 5-40 Not Available [facility] ([facility]) [address] [place], [address], 09/12/2024 08:28:15 09/12/19 25 09/12/2024 LIPID PANEL LDL chol calc ([facility]) 51 mg/dL 0-99 Not Available [facility] ([facility]) [address] [place], [address], 09/12/2024 08:28:15 09/12/19 25 09/12/2024 LIPID PANEL LDL calc comment: ACADEMIC PROGRAM SPECIALIST Not Available [facility] ([facility]) [address] [place], [address], 09/12/2024 08:28:15 09/12/19 25 09/12/2024 VITAM IN D, 25-HY DROXY vitamin D, 25-hydroxy 73.3 NG/mL 30.0-1 00.0 Vitam in D defic iency has been defin ed by the Insti tute of Medic ine and an Endoc rine Socie ty pract ice guide line as a level of serum 25-OH vitam in D less than 20 ng/mL (1,2) . The Endoc rine Socie ty went on to furth er defin e vitam in D insuf ficie ncy as a level betwe en 21 and 29 ng/mL (2). 1. IOM (Inst itute of Medic ine). 2009. Dieta ry refer ence intak es for calci um and D. Shereen white [place]: The [facility] Press . 2. Jl sanford MF, Jayda lee [place], Betty off-F shwetaar i VALDIVIA, et al. Evalu ation , treat ment, and preve ntion of vitam in D defic iency : an Endoc rine Socie ty clini adriana pract ice guide line. JCEM. 2010; 96(7) :1911 -30. Not Available [facility] ([facility]) [address] [facility], [place], [address], 09/12/2024 08:28:16 09/12/19 25 09/12/2024 VITAM IN B12 vitamin B12 331 pg/mL 232-12 45 normal Not Available [facility] ([facility]) [address] [facility], [place], [address], 09/12/2024 08:28:16 09/12/19 25 09/11/2024 HbA1c (hemo globi n A1c), blood HbA1C 5.0 % Not Available [address] , [place], [address], 09/11/2024 09:00:26 09/12/19 25 09/11/2024 gluco se, finge rstic k, blood Blood Glucose: mg/dl 89 Not Available [address] , [place], [address], 09/11/2024 09:00:26 09/12/1909/11/2024 gluco se, finge rstic k, blood Reference Range (60-100) normal Not Available [address] , [place], [address], 09/11/2024 09:00:26 11/16/19 25 11/17/2024 IGP, APTIM A HPV, RFX 16/18 ,45 HPV aptima Negati ve negati ve This nucle ic acid ampli ficat ion test detec ts fourt een high- risk HPV types (16,1 8,31, 33,35 ,39,4 5,51, 52,56 ,58,5 9,66, 68) witho ut diffe renti ation . Not Available [facility] ([facility]) [address] [place], [address], 11/21/2024 08:20:55 11/16/1911/21/2024 IGP, APTIM A HPV, RFX 16/18 ,45 diagnosis: Commen t NEGAT KATRIN FOR INTRA EPITH ELIAL LESIO N OR MALIG RIKI . THIS SPECI MEN WAS RESCR EENED PART OF OUR QUALI TY CONTR OL PROGR AM. Not Available [facility] ([facility]) [address] [place], [address], 11/21/2024 08:20:55 11/16/1911/21/2024 IGP, APTIM A HPV, RFX 16/18 ,45 specimen adequacy: Commen t Satis facto ry for evalu ation . Endoc ervic al and/o r squam ous metap lasti c cells (endo cervi adriana compo nent) are prese nt. Not Available [facility] ([facility]) [address] [place], [address], 11/21/2024 08:20:55 11/16/19 25 11/21/2024 IGP, APTIM A HPV, RFX 16/18 ,45 clinician provided ICD10: Forrest reaves Z12.4 Not Available [facility] ([facility]) [address] [place], [address], 11/21/2024 08:20:55 11/16/19 25 11/21/2024 IGP, APTIM A HPV, RFX 16/18 ,45 performed by: Forrest tamez, Cytol ogist (ASCP ) Not Available [facility] ([facility]) [address] [place], [address], 11/21/2024 08:20:55 11/16/19 25 11/21/2024 IGP, APTIM A HPV, RFX 16/18 ,45 QC reviewed by: Forrest kasper, Alba visor y Cytol ogist (ASCP ) Not Available [facility] ([facility]) [address] [place], [address], 11/21/2024 08:20:55 11/16/19 25 11/21/2024 IGP, APTIM A HPV, RFX 16/18 ,45 . . Not Available [facility] ([facility]) [address] [place], [address], 11/21/2024 08:20:55 11/16/19 25 11/21/2024 IGP, APTIM A HPV, RFX 16/18 ,45 note: Forrest reaves The Pap smear is a scree cholo test desig li to aid in the detec tion of rkistal ligna nt and malig nant condi tions of the uteri ne cervi x. It is not a diagn ostic proce dure and shoul d not be used as the sole means of detec ting cervi adriana cance r. Both false -posi tive and false -nega tive repor ts do occur . Not Available [facility] ([facility]) [address] [facility], [place], [address], 11/21/2024 08:20:55 11/16/19 25 11/21/2024 IGP, APTIM A HPV, RFX 16/18 ,45 test methodology: Commen t This liqui d based ThinP rep(R ) pap test was mikel jefferson with the use of an image guide delmis brownlee Not Available [facility] ([facility]) [address] [facility], [place], [address], 11/21/2024 08:20:55 11/16/1911/21/2024 IGP, APTIM A HPV, RFX 16/18 ,45 HPV genotype reflex Commen t Crite niesha not met, HPV Genot ype not perfo rmed. Not Available [facility] ([facility]) [address] [facility], [place], [address], 11/21/2024 08:20:55 01/01/20 25 12/31/2024 HbA1c (hemo globi n A1c), blood HbA1C 5.2 % Not Available [address] , [place], [address], 12/31/2024 11:26:50 01/01/20 25 12/31/2024 gluco se, waltere rstic k, blood Blood Glucose: mg/dl 103 Not Available [address] , [place], [address], 12/31/2024 11:26:50 01/01/20 25 12/31/2024 micro album in/cr eatin ine, mass ratio , urine Microalbumin 30 mg/L Not Available [address] , [place], [address], 12/31/2024 14:37:48 01/01/20 25 12/31/2024 micro album in/cr eatin ine, mass ratio , urine Creatinine 100 mg/dL Not Available [address] , [place], [address], 12/31/2024 14:37:48 01/01/20 25 12/31/2024 micro album in/cr eatin ine, mass ratio , urine Ratio <30 mg/g normal Not Available [address] , [place], [address], 12/31/2024 14:37:48 09/12/19 25 04/13/2024 MAMMO , scree cholo, bilat eral No observ ation record ed. [facility] [address] [place], [address], 12/31/2024 11:29:37 09/28/19 LDCT, chest , for lung cance r scree cholo No observ ation record ed. [facility] [address], [place], [address], 09/27/2024 13:00:07 Result Notes None recorded. Problems Name Problem SNOMED Code Status Onset Date Resolution Date Notes Provider Name and Address Organization Details Recorded Time Menopausal syndrome 476758688 Active [address] [facility], [place] - [facility] 8 08:40:24 Tobacco user 928532165 Active 2017 [facility] Care Managemen t [address], [place], [address], [place] - [facility] 8 10:49:00 Body mass index 30+ - obesity 914531464 Active 2019 Lupe Cardona APRN [address], [place], [address], [place] - [facility] 5 14:29:49 Cervical intraepithe lial neoplasia grade 1 191943192 Active 2019 Lupe Brendan, TRADER [address], [place], [address], [place] [facility] 0 15:10:38 Body mass index 40+ - severely obese 519648706 Completed 202006/08/2023 Lupe Cardona, TRADER [address], [place], [address], [place] [facility] 3 14:30:36 Cellulitis of skin 525114321 Completed 202106/08/2023 Lupe Cardona, TRADER [address], [place], [address], [place] [facility] 3 14:30:30 Electronic cigarette user 346281167 Active 2022 Lupe Cardona, TRADER [address], [place] , [place], [address], [place] [facility] 3 13:14:56 Type 2 diabetes mellitus 77018352 Active 2023 Vijaya Michelle null, [place] - [facility] 4 11:57:13 Sleep apnea 84593130 Active 2024 Jacqui Gregory null, [place] - [facility] 5 13:49:33 Carpal tunnel syndrome 69641859 Active 2016 Devora Cast null, [place] - [facility] 7 13:23:42 Obstructive sleep apnea syndrome 68551462 Active 2024 Leonor Spring, TRADER [address], [place] , [place], [address], [place] [facility] 5 14:59:10 Lumbago with sciatica 996363471 Active 2016 Devora Segun null[place] - [facility] 7 13:24:02 Degeneratio n of thoracic interverteb ral disc 24500586 Active 2016 Devorabaldomero Cast null, [place] - [facility] 7 13:24:36 Hypertensiv e disorder 55867759 Active 2016 Devora Segun [place] - [facility] 7 08:48:17 Depressive disorder 44528992 Active 2016 Devora gaines, [place] - [facility] 7 08:48:29 Anxiety 09672179 Active 2016 Devora Cast null, [place] - [facility] 7 08:48:35 Cervicovagi nal cytology: Low grade squamous intraepithe lial lesion 801287946 Completed 201606/08/2023 Lupe Cardona APRN [address], [place], [address], [place] [facility] 14:30:21 Problem Notes [...] completed Lupe Cardona APRN [address], [place], [address], [place] [facility] 11/15/2024 14:31:02 09/12/19 25 A1C level 6.9 and below completed Vijaya Michelle [place] - [facility] 09/11/2024 11:21:08 04/13/20 24 Date of Last Mammogram completed Lupe Cardona APRN [address], [place], [address], [place] [facility] 11/15/2024 14:30:15 04/13/20 24 Most Recent Mammogram completed Lupe Cardona APRN [address], [place], [address], [place] [facility] 11/15/2024 14:30:34 01/25/20 24 [...] completed Lupe Cardona APRN [address], [place], [address], [place] [facility] 07/29/2023 15:03:47 08/21/19 22 Back Surgery completed Jacqui Gregory [place] - [facility] 05/31/2022 09:51:04 05/14/20 20 Colposcopy completed Beth Gomes [place] - [facility] 05/21/2020 15:13:31 05/13/20 cold knife cone biopsy of cervix completed Lara Landry DO [address], [place], [address], [place] [facility] 05/25/2020 19:09:44 04/10/20 20 Colposcopy completed Lupe Cardona APRN [address], [place], [address], [place] [facility] 04/10/2020 09:31:43 04/10/20 20 Colposcopy completed Lupe Cardona APRN [address], [place], [address], [place] [facility] 04/14/2020 15:10:29 06/05/20 19 Back Surgery completed Jacqui Gregory [place] [facility] 03/12/2020 13:24:27 01/17/20 19 Colposcopy completed Lara Landry DO [address], [place], [address], [place] [facility] 01/17/2019 02:20:45 12/09/19 18 Colposcopy completed Lupe Cardona APRN [address], [place], [address], [place] [facility] 12/08/2017 11:26:24 11/02/19 17 Colposcopy completed Lupe Cardona APRN [address], [place], [address], [place] [facility] 11/01/2016 11:14:18 01/07/20 [...] completed Not Available Not Available Not Available [place] 10 mg-325 mg tablet take 1 tablet by oral route every 6 hours as needed for pain 10/13 completed [place] 10-325 mg oral tablet;R ecorded Status: Recorded on: 11/02/19 15 4:00PM;U ser: [email or web address] Not Available Not Available Not Available Prempro [...] mass index (BMI) Body weight Body temperature Respiratory rate Oxygen saturation Oxygen saturation in Arterial blood by Pulse oximetry Heart rate Systolic And Diastolic Provider Name and Address Organization Details Last Updated DateTime 5 167.64 cm 34.1 kg/m2 48307.0 9 g 97.8 [degF] 18 /min 99 % 99 % 79 /min 124/72 mm[Hg] Marlen Velazco [place] - [facility] 5 11:13:50 Date Recorded Body height Body mass index (BMI) Body weight Systolic And Diastolic Provider Name and Address Organization Details Last Updated DateTime 11/15/2024 167.64 cm 33.7 kg/m2 44020.81 g 126/74 mm[Hg] Jacqui Gregory [place] - [facility] 11/15/2024 14:02:11 Date Recorded Body height Respiratory rate Body mass index (BMI) Body weight Body temperature Heart rate Oxygen saturation Oxygen saturation in Arterial blood by Pulse oximetry Systolic And Diastolic Provider Name and Address Organization Details Last Updated DateTime 5 167.64 cm 14 /min 33.7 kg/m2 10312.8 1 g 98.6 [degF] 82 /min 98 % 98 % 126/84 mm[Hg] Jordana Flores [place] - [facility] 11:12:17 Date Recorded Body height Body mass index (BMI) Body weight Body temperature Heart rate Oxygen saturation Oxygen saturation in Arterial blood by Pulse oximetry Respiratory rate Systolic And Diastolic Provider Name and Address Organization Details Last Updated DateTime 5 167.64 cm 34 kg/m2 27101.2 g 98.3 [degF] 77 /min 98 % 98 % 18 /min 138/80 mm[Hg] Vijaya Michelle [place] [facility] 14:49:32 Date Recorded Body height Body mass index (BMI) Body weight Body temperature Heart rate Oxygen saturation Oxygen saturation in Arterial blood by Pulse oximetry Respiratory rate Systolic And Diastolic Provider Name and Address Organization Details Last Updated DateTime 4 167.64 cm 34.1 kg/m2 22490.0 9 g 98.2 [degF] 67 /min 98 % 98 % 18 /min 112/68 mm[Hg] Vijaya Michelle [place] - [facility] 4 11:52:03 Social History Question Answer Notes LastModified by [...] COVID-19 While That Case Was Ill? No [email or web address] Information not available 03/19/2021 In The 14 Days Before Symptom Onset, Have You Had Close Contact With A Person Who Is Under Investigation For COVID-19 While That Person Was Ill? No [email or web address] Information not available 03/19/2021 Have You Been To An Area Known To Be High Risk For COVID-19? No [email or web address] Information not available 03/19/2021 Are You Deaf Or Do You Have Serious Difficulty Hearing? No Information not available 10/12/2016 What Type Of Diet Are You Following? REGULAR Information not available 10/12/2016 Which Illicit Or Recreational Drugs Have You Used? Denies Information not available 10/12/2016 Have You Processed Blood Or Body Fluids From An Ebola Virus Disease Patient Without Appropriate PPE? No [email or web address] Information not available 03/19/2021 Do You Reside In Or Have You Traveled To An Area Where Ebola Virus Transmission Is Active? No [email or web address] Information not available 03/19/2021 What Is The Highest Grade Or Level Of School You Have Completed Or The Highest Degree You Have Received? [id number] Information not available 03/19/2021 Have There Been Any Changes To Your Family Or Social Situation? No [email or web address] Information no t available 03/19/2021 What Is The Fluoride Status Of Your Home? Unknown [email or web address] Information not available 03/19/2021 When Did You Quit Smoking? 1-5yearssinc elastcigaret te [email or web address] Information not available 05/31/2022 Have You Recently Or Are You Planning To Travel To An Area With Zika Virus? No [email or web address] Information not available 03/19/2021 Live Alone Or With Others? With Others Information not available 10/12/2016 Do You Have A Medical Power Of Lens Grinder And Polisher? No [email or web address] Information not available 03/19/2021 What Was The Date Of Your Most Recent Tobacco Screening? 12/27/2024 [email or web address] Information not available 12/27/2024 How Many Children Do You Have? 0 Information not available 10/12/2016 What Is Your Current Pack Years? [email or web address] years Information not available 07/18/2023 Performs Monthly Self-breast Exam? Yes Sometimes Information no t available 10/13/2016 Do You Use Protection During Sex? No [email or web address] Information not available 06/08/2023 Do You Use Protection Against STDs? No [email or web address] Information not available 06/08/2023 What Is Your Relationship Status? Information not available 11/15/2024 Seat Belts Used Routinely Yes Information not available 10/13/2016 Are You Sexually Active? Yes Information not available 10/12/2016 Do You Have Smoke And Carbon Monoxide Detectors In Your Home? Yes Information not available 03/19/2021 At What Age Did You Start Smoking Tobacco? 19 Information not available 07/18/2023 Are You Passively Exposed To Smoke? No Information no t available 03/19/2021 How Much Tobacco Do You Smoke? No [email or web address] Information not available 06/08/2023 Do You Use Sunscreen Routinely? Yes Information not available 10/13/2016 On What Date Was Tobacco Cessation Counseling Provided? 12/27/2024 [email or web address] Information not available 12/27/2024 How Many Years Have You Smoked Tobacco? 30 Information not available 07/18/2023 Do You Have Difficulty Walking Or Climbing Stairs? No Information not available 10/12/2016 Sex: Female Functional Status Question Answer Note LastModified by Organizat [employer] Details LastModified Time Do you use any illicit or recreational drugs? No [email or web address] Information not available 03/19/2021 Do you or have you ever used any other forms of tobacco or nicotine? Yes [email or web address] Information not available 03/19/2021 What is your level of alcohol consumption? Occasional Information not available 10/12/2016 Are you currently employed? No Information not available 10/12/2016 Do you have transportation difficulties? No [email or web address] Information not available 03/19/2021 Are you able to walk? YESWOREST [email or web address] Information not available 03/19/2021 Do you have difficulty doing errands alone? No Information not available 10/12/2016 Are you able to care for yourself? Yes [email or web address] Information n ot available 03/19/2021 What is [...] anxious, or unable to sleep at night)? [id number] [email or web address] Information not available 03/19/2021 Do you have [...] ntarter Not available 2016 13:32:52 Father Leukemia [email or web address] Not availabl e 06/08/2023 14:18:18 Mother Malignant lymphoma 47 ntarter Not available 2016 13:33:07 Brother Malignant tumor of pharynx ntarter Not available 2016 13:33:18 Brother Myocardial infarction 59 [email or web address] Not available 06/08 14:18:59 Medical History Condition [...] dose or 50 mcg/0.25mL dose 1 completed [place] - [facility] 05/31/2022 09:43:15 influenza, unspecified formulation 2 completed Not Available [facility] 07/18/2023 11:26:39 influenza, unspecified formulation 3 completed Not Available [facility] 07/18/2023 11:26:39 Past Encounters Encounter ID Performer Location Encounter Start Date Encounter Closed Date Diagnosis/Indication Diagnosis SNOMED-CT Code Diagnosis ICD10 Code Diagnosis Note [id number] [facility] [address] [place] [address] 06/09/2006 00:00:00 [id number] [facility] [address] [place] [address] 06/09/2006 00:00:00 [id number] [facility] [address] [place] [address] 07/04/2006 00:00:00 [id number] [facility] [address] [place] [address] 08/03/2006 00:00:00 [id number] [facility] [address] [place] [address] 01/27/2007 00:00:00 [id number] [facility] [address] [place] [address] 02/23/2007 00:00:00 [id number] [facility] [address] [place] [address] 03/15/2007 00:00:00 [id number] [facility] [address] [place] [address] 07/04/2007 00:00:00 [id number] [facility] [address] [place] [address] 10/18/2011 00:00:00 [id number] [facility] [address] [place] [address] 12/08/2011 00:00:00 [id number] [facility] [address] [place] [address] 12/22/2011 00:00:00 [id number] [facility] [address] [place] [address] 12/22/2011 00:00:00 [id number] [facility] [address] [place] [address] 11/24/2012 00:00:00 [id number] [facility] [address] [place] [address] 12/25/2012 00:00:00 [id number] [facility] [address] [place] [address] 12/25/2012 00:00:00 [id number] [facility] [address] [place] [address] 03/14/2013 00:00:00 [id number] [facility] [address] [place] [address] 11/01/2014 00:00:00 [id number] [facility] [address] [place] [address] 12/02/2014 00:00:00 [id number] [facility] [address] [place] [address] 01/06/2015 00:00:00 [id number] [facility] [address] [place] [address] 01/13/2015 00:00:00 [id number] [facility] [address] [place] [address] 04/15/2015 00:00:00 [id number] [facility] [address] [place] [address] 02/11/2016 00:00:00 [id number] VIVI Carnes OPHTHALMIC TECHNICIAN [address] [place] [address] [place] [address] 10/13/2016 08:27:53 10/13/2016 09:47:15 Atypical squamous cells of undetermined significance on cervical Papanicolaou smear 156442100 R87.610 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 [id number] VIVI Carnes OPHTHALMIC TECHNICIAN [address] [place] [address] [place] [address] 04/18/2017 08:48:55 04/18/2017 10:11:08 Routine gynecologic examination done 3911550762 9101 Z01.419 Depression screening 171 330101 Z13.89 See HPI Hypertensi on screening 817392677 Z13.6 Screening for malignant neoplasm of cervix 683359860 Z12.4 Diet education 05556114 Z71.3 Encourage healthy eating/dec reased fats, sugars, fried foods Screening for malignant neoplasm of breast 875094308 Z12.31 Counseling 137796849 Z71 .9 Encouraged regular exercise 30-40min/d ay 4-5 days/wk Body mass index 40+ - severely obese 007738236 Z68.41 Menopausal syndrome 1237 99522 N95.9 Cigarette smoker 0273826 7 F17.210 Depressive disorder 3548 9007 F33.8 [id number] VIVI Carnes OPHTHALMIC TECHNICIAN [address] [place] [address] [place] [address] 11/01/2016 09:35:44 11/01/2016 10:42:08 Cervicovaginal cytology: Low grade squamous intraepithelial lesion 755950842 R87.536 [id number] VIVI Carnes OPHTHALMIC TECHNICIAN [address] [place] [address] [place] [address] 06/15/2017 09:55:44 06/15/2017 10:40:25 Menopausal syndrome 354386720 N95.9 [id number] VIVI Carnes OPHTHALMIC TECHNICIAN [address] [place] [address] [place] [address] 08/17/2017 08:16:54 08/17/2017 08:55:55 Menopausal syndrome 254567047 N95.9 Fatigue 42837755 R53.83 [id number] VIVI Carnes OPHTHALMIC TECHNICIAN [address] [place] [address] [place] [address] 11/07/2017 09:58:19 11/07/2017 11:31:30 Cervicovaginal cytology: Low grade squamous intraepithelial lesion 093291193 R87.926 [id number] VIVI Carnes OPHTHALMIC TECHNICIAN [address] [place] [address] [place] [id number] 12/08/2017 10:43:50 12/08/2017 12:00:24 Cervicovaginal cytology: Low grade squamous intraepithelial lesion 993490892 R87.692 [id number] VIVI Carnes OPHTHALMIC TECHNICIAN [address] [place] [address] [place] [id number] 08/09/2018 10:24:23 08/09/2018 11:57:10 Routine gynecologic examination done 2075821258 9101 Z01.419 Depression screening 171 222973 Z13.89 Hypertensi on screening 634020330 Z13.6 Screening for malignant neoplasm of cervix 172824317 Z12.4 Diet education 64973421 Z71.3 Encourage healthy eating/dec reased fats, sugars, fried foods Counseling 006994853 Z71 .82 Encouraged regular exercise 30-40 min/day 4-5 days/wk Body mass index 40+ - severely obese 456102756 Z68.42 Menopausal syndrome 1237 24613 N95.9 Cigarette smoker 9977482 7 F17.095 [id number] MD Melissa [place] OPHTHALMIC TECHNICIAN [address] [place] [address] [place] [id number] 10/12/2018 09:56:47 10/12/2018 11:04:26 Body mass index 40+ - severely obese 548010509 Z68.41 Candidiasis of vagina 72 355863 B37.3 [id number] DO Bhupendra Fung OPHTHALMIC TECHNICIAN [address] [place] [address] [place] [id number] 01/16/2019 14:47:57 01/16/2019 16:04:34 Atypical squamous cells of undetermined significance on cervical Papanicolaou smear 318475057 R87.408 [id number] VIVI Carnes OPHTHALMIC TECHNICIAN [address] [place] [address] [place] [id number] 03/12/2020 13:00:37 03/12/2020 13:59:05 Routine gynecologic examination done 9126431260 9101 Z01.419 Depression screening 171 565385 Z13.89 Screening for malignant neoplasm of cervix 663086894 Z12.4 Diet education 58371218 Z71.3 Encourage healthy eating/dec reased fats, sugars, fried foods Screening for malignant neoplasm of breast 984810519 Z12.31 Counseling 475502319 Z71 .82 Encouraged regular exercise 30-40min/d ay 4-5 days/wk Examinatio n of blood pressure 647373078 Z01.30 Menopausal syndrome 1237 46505 N95.9 Cigarette smoker 5178330 7 F17.210 Hypertensive disorder 38 216526 I10 Body mass index 30+ - obesity 864235675 Z68.39 [id number] VIVI Carnes OPHTHALMIC TECHNICIAN [address] [place] [address] [place] [address] 04/10/2020 08:50:59 04/10/2020 10:50:13 Low grade squamous intraepithelial lesion on cervical Papanicolaou smear 1074555494 9105 R87.319 [id number] DO Bhupendra Fung OPHTHALMIC TECHNICIAN [address] [place] [address] [place] [id number] 05/06/2020 14:07:18 05/06/2020 15:33:43 Cervical intraepithelial neoplasia grade 1 135410440 N87.1 [id number] DO Bhupendra Fung OPHTHALMIC TECHNICIAN [address] [place] [address] [place] [id number] 05/21/2020 14:56:42 05/21/2020 15:51:50 Surgical follow-up 472403712 Z09 Hypertensive disorder 38 695444 I10 BP mildly elevated today - she reports due to nerves. [id number] DO Bhupendra Fung OPHTHALMIC TECHNICIAN [address] [place] [address] [place] [address] 06/12/2020 16:10:07 06/12/2020 16:51:20 Surgical follow-up 825327117 Z09 Cervical intraepithelial neoplasia grade 2 008892405 N87.1 [id number] Lupe Cardona APRN [place] OPHTHALMIC TECHNICIAN [address] [place] [address] [place] [address] 03/19/2021 11:13:39 03/19/2021 11:58:37 Routine gynecologic examination done 9851591517 9101 Z01.419 Depression screening 171 938105 Z13.89 Screening for malignant neoplasm of cervix 101034711 Z12.4 Diet education 58866534 Z71.3 Encourage healthy eating/dec reased fats, sugars, fried foods Screening for malignant neoplasm of breast 260047412 Z12.31 Counseling 515069083 Z71 .82 Encouraged regular exercise 30-40min/d ay 4-5 days/wk Examinatio n of blood pressure 553260231 Z01.30 Cigarette smoker 6929811 7 F17.210 Hypertensive disorder 38 403801 I10 Body mass index 40+ - severely obese 723681727 Z68.41 [id number] VIVI [place] OPHTHALMIC TECHNICIAN [address] [place] [address] [place] [address] 05/31/2022 09:25:26 05/31/2022 10:19:50 Routine gynecologic examination done 8829963845 9101 Z01.419 Depression screening 171 756414 Z13.89 Screening for malignant neoplasm of cervix 736661302 Z12.4 Diet education 44061459 Z71.3 Encourage healthy eating/dec reased fats, sugars, fried foods Screening for malignant neoplasm of breast 620451603 Z12.31 Counseling 051974428 Z71 .82 Encouraged regular exercise 30-40min/d ay 4-5 days/wk Examinatio n of blood pressure 702412206 Z01.31 Screening for malignant neoplasm of colon 895842638 Z12.11 Cellulitis of skin 04728 1002 L03.90 Hypertensive disorder 38 204879 I10 Body mass index 30+ - obesity 798394918 Z68.39 [id number] VIVI Treadwell[address] [place] [address] 04/08/2021 09:21:41 04/08/2021 10:10:48 Senile hyperkeratosis 382135828 L82.1 offered reassuranc e regarding benign clinical nature encouraged to return for a full skin cancer screening [id number] Leonor Spring APRN [address] [place] [address] 07/18/2023 11:25:19 07/18/2023 12:57:46 Hyperglycemia due to type 2 diabetes mellitus 9536061681 41793 E11.65 Body mass index 30+ - obesity 659906644 Z68.36 Gastroesop hageal reflux disease without esophagitis 279689028 K21.9 Hyperlipidemia 21464954 E78.5 Hypertensive disorder 38 602387 I10 Microalbuminuria 9178155 06 R80.9 Former hea vy tobacco smoker 1019928243 33007 Z87.891 Fatigue 10454235 R53.83 Cobalamin deficiency 190 011668 E53.8 Vitamin D deficiency 347 29202 E55.9 Hepatitis C screening 41 4585978 Z11.59 Patient me dical record not available 934783885 Z76.89 [id number] VIVI Carnes OPHTHALMIC TECHNICIAN [address] [place] [address] [place] [address] 06/08/2023 13:44:45 06/08/2023 15:11:46 Routine gynecologic examination done 9608468080 9101 Z01.419 Depression screening 171 936658 Z13.31 PHQ-9 completed today. Diet education 86056837 Z71.3 Encourage healthy eating/dec reased fats, sugars, fried foods Counseling 590045431 Z71 .82 Exercise counsellin g. Patient encouraged to exercise 30 minutes 5 days a week. Examinatio n of blood pressure 505686119 Z01.30 Screening for malignant neoplasm of cervix 978284609 Z12.4 Body mass index 30+ - obesity 127002380 Z68.36 Obesity 381440157 E66.9 Depressive disorder 3548 9007 F33.8 Hypertensive disorder 38 864826 I10 Menopausal syndrome 1237 58440 N95.9 Screening for malignant neoplasm of colon 864258334 Z12.11 Electronic cigarette user [id number] Z72.89 [id number] Leonor Spring APRN [address] [place] [address] 10/20/2023 13:23:44 10/20/2023 13:59:27 Hyperglycemia due to type 2 diabetes mellitus 2926694455 56514 E11.65 Body mass index 30+ - obesity 295366443 Z68.37 Gastroesop hageal reflux disease without esophagitis 873182150 K21.9 Hyperlipidemia 29908070 E78.5 Hypertensive disorder 38 985083 I10 Microalbuminuria 1951552 06 R80.9 Former hea vy tobacco smoker [id number] 45770 Z87.891 Cobalamin deficiency 190 157139 E53.8 Vitamin D deficiency 347 92810 E55.9 Patient mo dical record not available 358130322 Z76.89 Chronic constipation 236 895554 K59.09 [id number] Leonor Spring APRN [address] [place] [address] 01/25/2024 11:39:56 01/25/2024 12:28:31 Hyperglycemia due to type 2 diabetes mellitus 4232306638 18717 E11.65 Body mass index 30+ - obesity 594545213 Z68.34 Gastroesop hageal reflux disease without esophagitis 614734815 K21.9 Hyperlipidemia 23447899 E78.5 Hypertensive disorder 38 884882 I10 Microalbuminuria 7378892 06 R80.9 Former hea vy tobacco smoker 1051127897 30713 Z87.891 Cobalamin deficiency 190 951260 E53.8 Vitamin D deficiency 347 95805 E55.9 Allergic rhinitis 073174 04 J30.9 Chronic back pain 319424 002 G89.29 Upper resp iratory infection 99860548 J06.9 [id number] Lupe Cardona APRN [place] O[employer]AL[employer] TECHNICIAN [address] [place] [address] [place] [address] 11/15/2024 13:36:24 11/15/2024 14:28:22 Routine gynecologic examination done 2148194379 9101 Z01.419 Depression screening 171 189145 Z13.31 PHQ-9 completed today. Diet education 85467723 Z71.3 Encourage healthy eating/dec reased fats, sugars, fried foods Counseling 461666755 Z71 .82 Exercise counselangella duenas. Patient encouraged to exercise 30 minutes 5 days a week. Examinatio n of blood pressure 076359230 Z01.30 Screening for malignant neoplasm of cervix 659454424 Z12.4 Screening for malignant neoplasm of breast 374066110 Z12.31 Body mass index 30+ - obesity 824282104 Z68.33 Obesity 652203110 E66.9 Depressive disorder 3548 9007 F33.8 Hypertensive disorder 38 160943 I10 Screening for malignant neoplasm of colon 276678858 Z12.11 Electronic cigarette user 868824340 Z72.89 [id number] Leonor Spring [address] [place] [address] 09/11/2024 10:50:24 09/11/2024 11:43:17 Hyperglycemia due to type 2 diabetes mellitus 5974579559 37820 E11.65 Body mass index 30+ - obesity 044228948 Z68.34 Gastroesop hageal reflux disease without esophagitis 170993092 K21.9 Hyperlipidemia 73064293 E78.5 Hypertensive disorder 38 541303 I10 Microalbuminuria 7516588 06 R80.9 Former hea vy tobacco smoker 0551530160 06496 Z87.891 Cobalamin deficiency 190 055611 E53.8 Vitamin D deficiency 347 40733 E55.9 Chronic back pain 217966 002 G89.29 Patient me dical record not available 632712367 Z76.89 Fatigue 22654692 R53.83 [id number] THIAGO Lou [address] [address] 12/27/2024 10:59:21 12/27/2024 11:23:50 Mixed hyperlipidemia 025762278 E78.2 Long-term current use of drug therapy 957931617 Z79.899 chronic conditions are stable. gave refills. Acute otit is externa of right ear 9178243482 613036 H60.501 Congestion of nasal sinus 31779913 R09.81 [id number] Leonor Spring [address] [place] [address] 12/31/2024 14:09:47 12/31/2024 15:08:27 Hyperglycemia due to type 2 diabetes mellitus 6952197862 83679 E11.65 Body mass index 30+ - obesity 889108432 Z68.34 Gastroesop hageal reflux disease without esophagitis 489234795 K21.9 Hyperlipidemia 75734138 E78.5 Hypertensive disorder 38 123632 I10 Former hea vy tobacco smoker 6007506256 41809 Z87.891 Cobalamin deficiency 190 929908 E53.8 Vitamin D deficiency 347 33787 E55.9 Chronic back pain 778299 002 G89.29 Medical re cords review 922730451 Z76.89 Obstructiv e sleep apnea syndrome 25416935 G47.33 Health Concerns Section Related Observation LastModified by Organization Detai ls LastModified Time None Recorded Concern Status LastModified by Organization Details LastModified Time None Recorded Advance Directives Directive N: Payers Insurance Date Sequence Insurance Name Policy Number Policy Cook Covered Member ID Cook Member ID Guarantor Name 12/26/2024 [place] Miri Hirsch [id number] Miri Hirsch 11/15/2024 1 [facility] - DOS ON OR AFTER 2022 (MEDICAID REPLACEMENT - HMO) Miri Cameron [id number] Miri Hirsch 12/26/2024 1 [employer] [place] (MEDICAID HMO) Miri Hirsch [id number] Miri Hirsch 11/15/2024 1 [facility] [place] - OPT-OUT (MEDICAID HMO) [facility] Miri [facility] [id number] Miri Hirsch 11/15/2024 [place] [facility] Miri [facility] [id number] Miri Hirsch Notes Date Note Type Note Provider Name and Address Organization Details Recorded Time 01/25/2024 text/html Miri presents for 3 month follow up on her type 2 diabetes. She has lost 20 lbs. She is currently on Metformin 1,000 mg BID and Victoza 1.8 mg daily. Her last hgb a1c was 5.7%. Today it is 5.0%. No problems with hypoglycemia. Retinavue from 10/20/2023 was negative for retinopathy. No h/o pancreatitis or medullary thyroid carcinoma. Diabetic complications: She is on Gabapentin for her back not diabetic neuropathy. No heart disease or stroke. She is disabled due to her back. She has had 2 back surgeries. I am her PCP. Specialists: pain specialist for her back Last mammogram 04/11/2023Last pap 06/08/2023Last colonoscopy 2021 - where was this done at a clinic on [facility], [place]. Follow up recommended in 5 years.Former smoker. She smoked 1 ppd X 30 years. She quit 5 years ago.LDCT from 08/09/2023 showed no suspicious pulmonary nodules or masses. Will repeat in one year. Chronic issues reviewed and stable. Leonor Spring, TRADER [address], [place], [address], [place] - [facility] 01/25/2024 12:20:30 09/11/2024 text/html Miri presents for 3 month follow up on her type 2 diabetes. She is currently on Metformin 1,000 mg BID and Ozempic 1 mg weekly through PAP. Her last hgb a1c was 5.0%. Today it is again 5.0%. No problems with hypoglycemia. Retinavue from 10/20/2023 was negative for retinopathy. No h/o pancreatitis or medullary thyroid carcinoma. Diabetic complications: She is on Gabapentin for her back not diabetic neuropathy. No heart disease or stroke. She is disabled due to her back. She has had 2 back surgeries. I am her PCP. Specialists: pain specialist for her back Last mammogram - states she had done at [facility] a few months ago.Last pap 06/08/2023Last colonoscopy 2021 - where was this done at a clinic on [facility], [place]. Follow up recommended in 5 years.Former smoker. She smoked 1 ppd X 30 years. She quit 6 years ago.LDCT from 07/29/2023 showed no suspicious pulmonary nodules or masses. Will repeat in one year. Chronic issues reviewed and stable. 09/11/2024- The patient presents with complaints of pain in her knees and lower back, which she is already managing with a pain specialist. She rates the pain at an 8/10. Additionally, she is experiencing significant sinus issues, including excessive drainage affecting her ears, nose, and throat. The patient also reports persistent bilateral dry, itchy ears, despite trying various medications and ear drops with no relief. Leonor Spring, VIVI [address], [place], [address], [place] [facility] 09/11/2024 11:39:55 11/15/2024 text/html Annual - MOBRepo rted bypatient.History:Jeanette martinez annual exam: 06/08/23 Current Contraception:Monoga mous relationship; Postmenopausal Preventive measures:Encourage self breast examination; Encourage regular exercise; Encourage no tobacco use; Encourage regular mammograms starting age 40; Followed with yearly pap smears; Mammogram performed within the past year; Up to date on colonoscopy screening; All immunization are currentNotes:Miri rto for AWE. She is doing well and denies ob gyn physician assistant concerns. Lupe Cardona, TRADER [address], [place], [address], [facility] - [facility] 11/16/2024 23:50:07 12/27/2024 text/html Patient is here for head congestion and ear pain. She does not want swabbed for covid, flu, and strep. ear pain is on right side. pos headache that is frontal. pos PND no sore throat. NO N/V/F/D. pos cough that dry.pt needs refills on meds. Frida Bryant PA-C [address], [place], [address], [place] - [facility] 12/27/2024 11:22:29 12/31/2024 text/html Miri presents for 3 month follow up on her type 2 diabetes. She is currently on Metformin 1,000 mg BID and Ozempic 1 mg weekly through PAP. Her last hgb a1c was 5.0%. Today it is 5.2%. No problems with hypoglycemia. States sugars average around 100. Retinavue from 10/20/2023 was negative for retinopathy. States she had eye exam at [facility] a few months ago. No [...] 2021 - done at a clinic on [facility], [place]. Follow up recommended in 5 years.Former smoker. She smoked 1 ppd X 30 years. She quit 7 years ago.LDCT from 09/27/2024 showed calcified granulomas, but no lung nodules or masses. It incidentally showed calcified coronary disease so I referred her to a overlock sleeve setter. Chronic issues reviewed and stable. Leonor Spring, TRADER [address], [place], [address], [place] - [facility] 12/31/2024 17:03:09 OBGyn Episode No OBEpisode recorded.
[2025-01-03 10:53] LABS: Blood Urea Nitrogen 15 mg/dl (7-17); Creatinine,Serum 0.70 mg/dl (0.52-1.04); Estimated Glomerular Filt Rate 88 ml/min (>60); GFR (African American) 106 ML/MIN (>60)
[2025-01-03] MEDS: GADOTERIDOL INJ 20ML SYRINGE 20 ML IV (11:45)
[2025-01-03] MEDS: 0.9 % SODIUM CHLORIDE 50 ML VIAL 20 ML IV (11:45)
[2025-01-03] MEDS: SODIUM CHLORIDE 0.9% 10ML SYR (RAD ONLY) 10 ML IV (11:45)
== END 2025-01-03 23:59 | disposition home or self-care (01) ==
LOC: RAD 10:05
PROVIDERS: PCP Nurse Practitioner Family; Visit Provider Nurse Practitioner Family
DX: I51.7 Cardiomegaly (principal); I28.1 Aneurysm of pulmonary artery; R93.1 Abnormal findings on diagnostic imaging of heart and coronary circulation; R06.09 Other forms of dyspnea; R94.39 Abnormal result of other cardiovascular function study
CPT/HCPCS: 36415; 75561; 82565; 84520; A9576